=== PATIENT | male | born 1940 | race Caucasian/White ===

== ENCOUNTER 2023-05-20 11:02 | Inpatient (IN) ==
--- NOTE | 2023-05-20 11:28 | Emergency Department Note ---
History of Present Illness General Chief complaint: Illness Stated complaint: SOB, SATS BELOW 90, CONGESTION, LOW GRADE FEVER Time Seen by Provider: 05/20/23 11:20 Home Medications Medication Instructions Recorded Confirmed Type Atenolol 25 mg PO HS ##0 10/29/14 History ATORVASTATIN (LIPITOR) 20 mg PO HS ##0 11/21/14 History COENZYME Q10 (UBIDECARENONE) (CO 1 cap PO DAILY #0 caps 11/22/14 History Q-10) IBUPROFEN 4 tabs PO HS PRN Pain ##0 11/22/14 History Allergies Allergy/AdvReac Type Severity Reaction Status Date / Time No Known Allergies Allergy Unverified 11/21/14 12:50 Past Med/Surg History Social History Smoking Status: Former smoker Preferred Language: [place] Verdean Feels Safe at Home: Yes Discharge Plan Visit Data Chief Complaint: Illness Stated Complaint: SOB, SATS BELOW 90, CONGESTION, LOW GRADE FEVER ED Provider: Patito Hansen Forms Stand Alone Forms: [facility] Prescriptions Prescriptions: No Action Atenolol 25 MG tablet 25 mg PO HS Qty: 0 ATORVASTATIN (LIPITOR) 20 MG tablet 20 mg PO HS Qty: 0 COENZYME Q10 (UBIDECARENONE) (CO Q-10) 75 MG capsule 1 cap PO DAILY Qty: 0 Patient Comments: UNSURE OF DOSAGE IBUPROFEN 200 MG capsule 4 tabs PO HS PRN (Reason: Pain) Qty: 0 Referrals Referrals: Terrance Landers DO [Primary Care Provider] -
--- NOTE | 2023-05-20 11:29 | Emergency Department Note ---
Impression & Plan Shortness of breath, Pulmonary edema, Non-ST elevation HI (NSTEMI), Acute respiratory failure with hypoxia and hypercapnia ED Provider Note HISTORY OF PRESENT ILLNESS: Patient is an 82-year-old male presenting with shortness of breath and cough. Patient reportedly has been having progressively worsening shortness of breath over the last 3 days. He has been having a cough productive of a yellow-green sputum. Reports low-grade fevers at home. He does not wear any supplemental oxygen at baseline. He is not on any anticoagulation or antiplatelet therapy. Denies any DVT or PE history. Denies any lower extremity edema. Denies any chest pain. Denies any recent sick contact exposure. He did recently just travel to [place]. ROS: as above PHYSICAL EXAM: Constitutional: Patient appears in no acute distress. HENT: Head: Normocephalic and atraumatic. Eyes: EOMI, PERRL Mouth/Throat: Mucous membranes moist. Neck: Trachea midline. Neck supple. Cardiovascular: RRR, No murmurs, rubs or gallops. Intact distal pulses. Pulmonary/Chest: No respiratory distress. Breath sounds clear and equal bilaterally. No wheezes or rales. Abdominal: Abdomen soft, no tenderness, rebound or guarding. Musculoskeletal: No tenderness or deformity noted. Trace edema of the bilateral lower extremities. Skin: Warm and dry. No rash, erythema, pallor or cyanosis Psychiatric: Appropriate mood and affect for situation. Neurological: Alert and keenly responsive. CN II-XII grossly intact, moving all extremities equally and fully. MDM: - Vitals signs showed hypertension and hypoxia. Patient was placed on supplemental oxygen with improvement in saturations. - History obtained via patient. Patient presents with shortness of breath. Patient has had progressively worsening shortness of breath over the last 3 days. He had a cough productive of yellow-green sputum. Reports low-grade fevers at home. He does not wear any supplemental oxygen at baseline. He is not on any anticoagulation. Denies any DVT or PE history. Denies any chest pain. - Chronic conditions affecting care: HTN; HLD - Differential diagnoses include, but are not limited to: Congestive heart failure; acute coronary syndrome; COPD/asthma exacerbation; pulmonary edema; pulmonary embolism; pneumonia; pneumothorax; viral syndrome - Order placed for continuous cardiac monitoring. At this time, monitor showed rate of 55 bpm with normal sinus rhythm, per my interpretation. - External medical records reviewed. - EKG reviewed by myself showed normal sinus rhythm. Occasional PVCs noted. Rate 62 bpm. QTc 462. No acute ischemic changes. - Laboratory workup interpreted by myself showed normal WBC; stable electrolytes; elevated troponin (24.8); elevated BNP (878); normal procalcitonin - CXR showed pulmonary edema, per my interpretation. Noted to have bilateral pleural effusions. - VBG showed respiratory acidosis (pH 7.31; pCO2 62). Patient started on BiPAP. - Viral upper respiratory panel negative. - NSTEMI likely secondary to pulmonary edema. Patient denies chest pain and no ischemic changes on EKG. - Given hypoxia, CT PE obtained. Showed bilateral pleural effusions. - Patient given 80 mg IV lasix. - Discussion was had with rn social services about patient's case and need for admission - Hospitalist consulted for admission - Patient admitted to [facility] service for further evaluation and management. I provided 48 minutes of critical care time to this patient's care outside of billable procedures. ASSESSMENT AND PLAN: Diagnosis: Shortness of breath; pulmonary edema; NSTEMI; acute hypoxic respiratory failure; acute hypercarbic respiratory failure Plan: Admit Past Med/Surg History Social History Smoking Status: Former smoker Preferred Language: Tajik Feels Safe at Home: Yes Allergies Allergies Allergy/AdvReac Type Severity Reaction Status Date / Time No Known Allergies Allergy Unverified 11/21/14 12:50 Home Meds Home Medications Medication Instructions Recorded Confirmed Atenolol 25 mg PO HS ##0 10/29/14 ATORVASTATIN (LIPITOR) 20 mg PO HS ##0 11/21/14 COENZYME Q10 (UBIDECARENONE) (CO 1 cap PO DAILY #0 caps 11/22/14 Q-10) IBUPROFEN 4 tabs PO HS PRN Pain ##0 11/22/14 Results & Data (ED) Vital Signs Vital Signs - 24 hr 05/20/23 11:18 05/20/23 11:26 05/20/23 11:32 Temperature 36.9 C Temperature Source Temporal Artery Scan Pulse Rate 59 L 57 L Pulse Rate [Finger] Pulse Rate from SpO2 Sensor Pulse Rhythm Regular Pulse Rhythm [Finger] Pulse Strength [Finger] Respiratory Rate 18 18 Respiratory Effort / Characteristics Non-Labored Spontaneous Respiratory Depth Normal Respiratory Pattern Regular Blood Pressure 175/84 H Blood Pressure [Right Arm] Blood Pressure Mean 114 Blood Pressure Mean [Right Arm] Blood Pressure Position [Right Arm] Pulse Oximetry 83 L 78 L 98 Oxygen Delivery Method Room Air Room Air Nasal Cannula Oxygen Flow Rate 0 6 Sepsis Recent Fever Within 48 Hours No Sepsis New/Unexplained Change in Mental Status No Sepsis Action Taken by Nursing No Action Required Oxygen Flow Rate - Titration 6 Pulse Oximetry Post Tiitration 94 05/20/23 11:31 05/20/23 11:41 05/20/23 12:31 Temperature Temperature Source Pulse Rate 60 Pulse Rate [Finger] 58 L Pulse Rate from SpO2 Sensor Pulse Rhythm Pulse Rhythm [Finger] Regular Pulse Strength [Finger] Normal Respiratory Rate 11 L Respiratory Effort / Characteristics Non-Labored Spontaneous Respiratory Depth Normal Respiratory Pattern Regular Blood Pressure Blood Pressure [Right Arm] 139/82 Blood Pressure Mean Blood Pressure Mean [Right Arm] 101 Blood Pressure Position [Right Arm] Lying Pulse Oximetry 98 100 Oxygen Delivery Method Nasal Cannula BiPAP Oxygen Flow Rate 6 Sepsis Recent Fever Within 48 Hours Sepsis New/Unexplained Change in Mental Status Sepsis Action Taken by Nursing Oxygen Flow Rate - Titration 4 Pulse Oximetry Post Tiitration 98 05/20/23 11:29 05/20/23 11:30 05/20/23 11:40 Temperature Temperature Source Pulse Rate 61 56 L 59 L Pulse Rate [Finger] Pulse Rate from SpO2 Sensor 57 L 56 L 57 L Pulse Rhythm Pulse Rhythm [Finger] Pulse Strength [Finger] Respiratory Rate 20 19 17 Respiratory Effort / Characteristics Respiratory Depth Respiratory Pattern Blood Pressure Blood Pressure [Right Arm] Blood Pressure Mean Blood Pressure Mean [Right Arm] Blood Pressure Position [Right Arm] Pulse Oximetry 97 98 97 Oxygen Delivery Method Oxygen Flow Rate Sepsis Recent Fever Within 48 Hours Sepsis New/Unexplained Change in Mental Status Sepsis Action Taken by Nursing Oxygen Flow Rate - Titration Pulse Oximetry Post Tiitration 05/20/23 11:50 05/20/23 12:00 05/20/23 12:00 Temperature Temperature Source Pulse Rate 57 L 60 Pulse Rate [Finger] Pulse Rate from SpO2 Sensor 58 L 59 L Pulse Rhythm Pulse Rhythm [Finger] Pulse Strength [Finger] Respiratory Rate 26 H 27 H Respiratory Effort / Characteristics Respiratory Depth Respiratory Pattern Blood Pressure 205/84 H Blood Pressure [Right Arm] Blood Pressure Mean 148 Blood Pressure Mean [Right Arm] Blood Pressure Position [Right Arm] Pulse Oximetry 94 96 Oxygen Delivery Method Oxygen Flow Rate Sepsis Recent Fever Within 48 Hours Sepsis New/Unexplained Change in Mental Status Sepsis Action Taken by Nursing Oxygen Flow Rate - Titration Pulse Oximetry Post Tiitration 05/20/23 12:10 05/20/23 12:20 05/20/23 12:30 Temperature Temperature Source Pulse Rate 62 60 59 L Pulse Rate [Finger] Pulse Rate from SpO2 Sensor 57 L 59 L 59 L Pulse Rhythm Pulse Rhythm [Finger] Pulse Strength [Finger] Respiratory Rate 19 20 10 L Respiratory Effort / Characteristics Respiratory Depth Respiratory Pattern Blood Pressure Blood Pressure [Right Arm] Blood Pressure Mean Blood Pressure Mean [Right Arm] Blood Pressure Position [Right Arm] Pulse Oximetry 96 100 99 Oxygen Delivery Method Oxygen Flow Rate Sepsis Recent Fever Within 48 Hours Sepsis New/Unexplained Change in Mental Status Sepsis Action Taken by Nursing Oxygen Flow Rate - Titration Pulse Oximetry Post Tiitration 05/20/23 12:31 05/20/23 12:31 05/20/23 12:40 Temperature Temperature Source Pulse Rate 55 L 56 L Pulse Rate [Finger] Pulse Rate from SpO2 Sensor 53 L 50 L Pulse Rhythm Pulse Rhythm [Finger] Pulse Strength [Finger] Respiratory Rate 9 L 11 L Respiratory Effort / Characteristics Respiratory Depth Respiratory Pattern Blood Pressure 139/82 Blood Pressure [Right Arm] Blood Pressure Mean 96 Blood Pressure Mean [Right Arm] Blood Pressure Position [Right Arm] Pulse Oximetry 99 98 Oxygen Delivery Method Oxygen Flow Rate Sepsis Recent Fever Within 48 Hours Sepsis New/Unexplained Change in Mental Status Sepsis Action Taken by Nursing Oxygen Flow Rate - Titration Pulse Oximetry Post Tiitration 05/20/23 12:50 05/20/23 13:00 05/20/23 13:00 Temperature Temperature Source Pulse Rate 53 L 52 L Pulse Rate [Finger] Pulse Rate from SpO2 Sensor 51 L 51 L Pulse Rhythm Pulse Rhythm [Finger] Pulse Strength [Finger] Respiratory Rate 10 L 10 L Respiratory Effort / Characteristics Respiratory Depth Respiratory Pattern Blood Pressure 155/75 H Blood Pressure [Right Arm] Blood Pressure Mean 81 Blood Pressure Mean [Right Arm] Blood Pressure Position [Right Arm] Pulse Oximetry 97 98 Oxygen Delivery Method Oxygen Flow Rate Sepsis Recent Fever Within 48 Hours Sepsis New/Unexplained Change in Mental Status Sepsis Action Taken by Nursing Oxygen Flow Rate - Titration Pulse Oximetry Post Tiitration 05/20/23 13:10 05/20/23 13:20 05/20/23 13:30 Temperature Temperature Source Pulse Rate 51 L 48 L 54 L Pulse Rate [Finger] Pulse Rate from SpO2 Sensor 50 L Pulse Rhythm Pulse Rhythm [Finger] Pulse Strength [Finger] Respiratory Rate 12 10 L 18 Respiratory Effort / Characteristics Respiratory Depth Respiratory Pattern Blood Pressure Blood Pressure [Right Arm] Blood Pressure Mean Blood Pressure Mean [Right Arm] Blood Pressure Position [Right Arm] Pulse Oximetry 97 97 96 Oxygen Delivery Method Oxygen Flow Rate Sepsis Recent Fever Within 48 Hours Sepsis New/Unexplained Change in Mental Status Sepsis Action Taken by Nursing Oxygen Flow Rate - Titration Pulse Oximetry Post Tiitration 05/20/23 13:31 05/20/23 13:31 05/20/23 13:40 Temperature Temperature Source Pulse Rate 51 L 52 L Pulse Rate [Finger] Pulse Rate from SpO2 Sensor Pulse Rhythm Pulse Rhythm [Finger] Pulse Strength [Finger] Respiratory Rate 10 L 11 L Respiratory Effort / Characteristics Respiratory Depth Respiratory Pattern Blood Pressure 170/83 H Blood Pressure [Right Arm] Blood Pressure Mean 105 Blood Pressure Mean [Right Arm] Blood Pressure Position [Right Arm] Pulse Oximetry 97 97 Oxygen Delivery Method Oxygen Flow Rate Sepsis Recent Fever Within 48 Hours Sepsis New/Unexplained Change in Mental Status Sepsis Action Taken by Nursing Oxygen Flow Rate - Titration Pulse Oximetry Post Tiitration Laboratory Data 05/20/23 11:35 05/20/23 11:35 Lab Results 05/20/23 05/20/23 05/20/23 Range/Units 11:35 11:35 11:35 WBC 9.99 (4.8-10.8) K/ul RBC 5.18 (4.70-6.10) M/uL Hgb 14.2 (14.0-18.0) g/dl Hct 43.9 (42.0-52.0) % MCV 84.7 (80.0-100.0) fL MCH 27.4 (25.0-34.0) pg MCHC 32.3 (32.0-36.0) g/dL RDW Std Deviation 52.2 H (36.4-46.3) fL RDW Coeff of Ebony 17.2 H (11.5-14.5) % Plt Count 184 (130-400) K/uL MPV 10.6 (9.4-12.4) fL Immature Gran % (Auto) 0.2 % Neut % (Auto) 67.3 % Lymph % (Auto) 24.9 % [place] % (Auto) 6.6 % Eos % (Auto) 0.7 % Baso % (Auto) 0.3 % Neut # (Auto) 6.72 H (1.40-6.50) K/uL Lymph # (Auto) 2.49 (1.20-3.40) K/uL [place] # (Auto) 0.66 H (0.11-0.59) K/uL Eos # (Auto) 0.07 (0.00-0.50) K/uL Baso # (Auto) 0.03 (0.00-0.20) K/uL Immature Gran # (Auto) 0.02 (0.01-0.20) K/uL VBG pH (7.36-7.41) VBG pCO2 (38-50) mmHg VBG pO2 mmHg VBG HCO3 mmol/L VBG O2 Saturation % VBG Base Excess mEq/L Sodium 137 (136-145) mmol/L Potassium 3.9 (3.5-5.1) mmol/L Chloride 100 (98-107) mmol/L Carbon Dioxide 30 (21-32) mmol/L Anion Gap 7 (3-11) BUN 14 (6-23) mg/dl Creatinine 0.88 (0.6-1.4) mg/dl Est Cr Clr Drug Dosing 80.5 ml/min Est GFR ( Amer) 94.0 ml/min Est GFR (Non-Af Amer) 81.1 ml/min BUN/Creatinine Ratio 15.9 (10-20) Glucose 102 H (70-99(Fasting)) mg/dl Calcium 9.2 (8.6-10.3) mg/dl Magnesium 2.2 (1.7-2.4) mg/dl Total Bilirubin 0.9 (0.2-1.0) mg/dl AST 20 (13-39) U/L ALT 11 (7-52) U/L Alkaline Phosphatase 148 H (34-104) U/L Troponin I High Sens 24.8 H (0-20) pg/ml B-Natriuretic Peptide 878 H (0-100) pg/ml Total Protein 7.8 (6.0-8.3) gm/dl Albumin 4.6 (3.4-5.0) gm/dl Globulin 3.2 (2.5-4.0) gm/dl Albumin/Globulin Ratio 1.4 (0.9-2) Procalcitonin (0-0.5) ng/ml Adenovirus (PCR) (NotDetected) B. pertussis DNA (PCR) (NotDetected) B.parapertussis DNA PCR (NotDetected) C. pneumoniae DNA (PCR) (NotDetected) Coronavirus OC43 (PCR) (NotDetected) Coronavirus HKU1 (PCR) (NotDetected) Coronavirus 229E (PCR) (NotDetected) SARS-CoV-2 (PCR) (NotDetected) Coronavirus NL63 (PCR) (NotDetected) Human Metapneumovir PCR (NotDetected) Influenza Type A (PCR) (NotDetected) Influenza Type B (PCR) (NotDetected) M. pneumoniae (PCR) (NotDetected) Parainfluenza 1 (PCR) (NotDetected) Parainfluenza 2 (PCR) (NotDetected) Parainfluenza 3 (PCR) (NotDetected) Parainfluenza 4 (PCR) (NotDetected) RSV (PCR) (NotDetected) Entero/Rhino (PCR) (NotDetected) 05/20/23 05/20/23 05/20/23 Range/Units 11:35 11:35 11:35 WBC (4.8-10.8) K/ul RBC (4.70-6.10) M/uL Hgb (14.0-18.0) g/dl Hct (42.0-52.0) % MCV (80.0-100.0) fL MCH (25.0-34.0) pg MCHC (32.0-36.0) g/dL RDW Std Deviation (36.4-46.3) fL RDW Coeff of Ebony (11.5-14.5) % Plt Count (130-400) K/uL MPV (9.4-12.4) fL Immature Gran % (Auto) % Neut % (Auto) % Lymph % (Auto) % [place] % (Auto) % Eos % (Auto) % Baso % (Auto) % Neut # (Auto) (1.40-6.50) K/uL Lymph # (Auto) (1.20-3.40) K/uL [place] # (Auto) (0.11-0.59) K/uL Eos # (Auto) (0.00-0.50) K/uL Baso # (Auto) (0.00-0.20) K/uL Immature Gran # (Auto) (0.01-0.20) K/uL VBG pH 7.31 L (7.36-7.41) VBG pCO2 62 H (38-50) mmHg VBG pO2 32 mmHg VBG HCO3 31 mmol/L VBG O2 Saturation < 60.0 % VBG Base Excess 3.2 mEq/L Sodium (136-145) mmol/L Potassium (3.5-5.1) mmol/L Chloride (98-107) mmol/L Carbon Dioxide (21-32) mmol/L Anion Gap (3-11) BUN (6-23) mg/dl Creatinine (0.6-1.4) mg/dl Est Cr Clr Drug Dosing ml/min Est GFR ( Amer) ml/min Est GFR (Non-Af Amer) ml/min BUN/Creatinine Ratio (10-20) Glucose (70-99(Fasting)) mg/dl Calcium (8.6-10.3) mg/dl Magnesium (1.7-2.4) mg/dl Total Bilirubin (0.2-1.0) mg/dl AST (13-39) U/L ALT (7-52) U/L Alkaline Phosphatase (34-104) U/L Troponin I High Sens (0-20) pg/ml B-Natriuretic Peptide (0-100) pg/ml Total Protein (6.0-8.3) gm/dl Albumin (3.4-5.0) gm/dl Globulin (2.5-4.0) gm/dl Albumin/Globulin Ratio (0.9-2) Procalcitonin < 0.05 (0-0.5) ng/ml Adenovirus (PCR) Not Detected (NotDetected) B. pertussis DNA (PCR) Not Detected (NotDetected) B.parapertussis DNA PCR Not Detected (NotDetected) C. pneumoniae DNA (PCR) Not Detected (NotDetected) Coronavirus OC43 (PCR) Not Detected (NotDetected) Coronavirus HKU1 (PCR) Not Detected (NotDetected) Coronavirus 229E (PCR) Not Detected (NotDetected) SARS-CoV-2 (PCR) Not Detected (NotDetected) Coronavirus NL63 (PCR) Not Detected (NotDetected) Human Metapneumovir PCR Not Detected (NotDetected) Influenza Type A (PCR) Not Detected (NotDetected) Influenza Type B (PCR) Not Detected (NotDetected) M. pneumoniae (PCR) Not Detected (NotDetected) Parainfluenza 1 (PCR) Not Detected (NotDetected) Parainfluenza 2 (PCR) Not Detected (NotDetected) Parainfluenza 3 (PCR) Not Detected (NotDetected) Parainfluenza 4 (PCR) Not Detected (NotDetected) RSV (PCR) Not Detected (NotDetected) Entero/Rhino (PCR) Not Detected (NotDetected) Administered Medications Discontinued Medications Ioversol (Optiray 350) 118 ml IV ONCE ONE Stop: 05/20/23 13:55 Last Admin: 05/20/23 13:55 Dose: 118 ml Documented By: [facility] Imaging Data Radiologist's Impression: Chest X-Ray 05/20/23 11:21 XR chest 1V portable HISTORY: 82 years-old Male Dyspnea acute shortness of breath COMPARISON: None TECHNIQUE: AP view the chest FINDINGS: Cardiac silhouette is enlarged. Pulmonary vascular congestion with interstitial coarsening. Small pleural effusions with bibasilar opacities. A line with lucency projects over the lateral right lung base compatible with a skin fold. Degenerative changes of the shoulders and spine. IMPRESSION: 1. Cardiomegaly with pulmonary edema. 2. Layering pleural effusions with bibasilar opacities suggestive of atelectasis. ACT 112: Negative or not required by law. The above report was generated using voice recognition software. It may contain grammatical, syntax or spelling errors. Electronically signed by: Roderick Wallis M.D. 05/20/2023 2:19 PM Chest CTA 05/20/23 11:22 CT angio chest PE protocol CT DOSE: 943.30 mGy.cm HISTORY: 82 years-old Male with PE. Acute shortness breath with hypoxia and fever TECHNIQUE: Multiple CTA images of the chest were obtained after the intravenous administration of 118 ml Optiray. Coronal and sagittal MIPS were obtained from the axial data set and were submitted for review. All measurements were obtained according to NASCET criteria. A dose lowering technique was utilized adhering to the principles of ALARA. COMPARISON: Chest radiograph of same day FINDINGS: CTA: Moderate cardiomegaly. No pericardial effusion. Moderate coronary artery calcifications. Atherosclerosis of the thoracic aorta without aneurysm or dissection. Descending thoracic aortic tortuosity. No pulmonary emboli are identified. Suboptimal evaluation of the segmental and subsegmental pulmonary artery branches secondary to respiratory motion artifact. CT CHEST: No pneumothorax identified. Intralobular septal thickening with intermixed groundglass densities. Consolidation with volume loss of the lower lobes, right greater than left. Bilateral pleural calcifications with moderate to large pleural effusions. Anasarca. Small volume of upper abdominal ascites. Gaseous distention of the large bowel. Atrophy of the bilateral rotator cuff musculature. With bodies within the left greater than right glenohumeral joints. IMPRESSION: 1. Limited study secondary to respiratory motion artifact. No central pulmonary emboli identified. 2. Cardiomegaly with volume overload manifested by pulmonary edema, moderate to large pleural effusions, anasarca and small volume of upper abdominal ascites. 3. Consolidation with volume loss of the lower lobes suggestive of compressive atelectasis. 4. Bilateral pleural calcifications. ACT 112: Negative or not required by law. The above report was generated using voice recognition software. It may contain grammatical, syntax or spelling errors. Electronically signed by: Roderick Wallis M.D. 05/20/2023 2:19 PM Discharge Plan Visit Data Chief Complaint: Illness Stated Complaint: SOB, SATS BELOW 90, CONGESTION, LOW GRADE FEVER ED Provider: Patito Hansen Discharge Problem: Shortness of breath, Pulmonary edema, Non-ST elevation HI (NSTEMI), Acute respiratory failure with hypoxia and hypercapnia Forms Stand Alone Forms: [facility] Prescriptions Prescriptions: No Action Atenolol 25 MG tablet 25 mg PO HS Qty: 0 ATORVASTATIN (LIPITOR) 20 MG tablet 20 mg PO HS Qty: 0 COENZYME Q10 (UBIDECARENONE) (CO Q-10) 75 MG capsule 1 cap PO DAILY Qty: 0 Patient Comments: UNSURE OF DOSAGE IBUPROFEN 200 MG capsule 4 tabs PO HS PRN (Reason: Pain) Qty: 0 Referrals Referrals: Terrance Landers, DO [Outside Practitioners] -
[2023-05-20 11:49] LABS: Base Excess VBG 3.2 mEq/L; HCO3 VBG 31 mmol/L; Oxygen Saturation VBG < 60.0 %; PCO2 VBG 62 mmHg (38-50); PO2 VBG 32 mmHg; pH VBG 7.31 (7.36-7.41)
[2023-05-20 11:56] LABS: Basophils # (auto) 0.03 K/uL (0.00-0.20); Basophils % (auto) 0.3 %; Eosinophils # (auto) 0.07 K/uL (0.00-0.50); Eosinophils % (auto) 0.7 %; Hematocrit (blood only) 43.9 % (42.0-52.0); Hemoglobin 14.2 g/dl (14.0-18.0); Immature Granulocytes # (auto) 0.02 K/uL (0.01-0.20); Immature Granulocytes % (auto) 0.2 %; Lymphocytes # (auto) 2.49 K/uL (1.20-3.40); Lymphocytes % (auto) 24.9 %; Mean Corpuscular Hemoglobin 27.4 pg (25.0-34.0); Mean Corpuscular Hgb Conc 32.3 g/dL (32.0-36.0); Mean Corpuscular Volume 84.7 fL (80.0-100.0); Mean Platelet Volume 10.6 fL (9.4-12.4); Monocytes # (auto) 0.66 K/uL (0.11-0.59); Monocytes % (auto) 6.6 %; Neutrophils # (auto) 6.72 K/uL (1.40-6.50); Neutrophils % (auto) 67.3 %; Platelet Count 184 K/uL (130-400); RDW Coefficient of Variation 17.2 % (11.5-14.5); RDW Standard Deviation 52.2 fL (36.4-46.3); Red Blood Count 5.18 M/uL (4.70-6.10); White Blood Count 9.99 K/ul (4.8-10.8)
[2023-05-20 12:13] LABS: Albumin Globulin Ratio 1.4 (0.9-2); Albumin Level 4.6 gm/dl (3.4-5.0); BUN Creatinine Ratio 15.9 (10-20); Bilirubin,Total 0.9 mg/dl (0.2-1.0); Calcium 9.2 mg/dl (8.6-10.3); Creatinine Clr Calc Pharmacy 80.5 ml/min; Est GFR (Non-African American) 81.1 ml/min; Globulin 3.2 gm/dl (2.5-4.0); Magnesium 2.2 mg/dl (1.7-2.4); Potassium 3.9 mmol/L (3.5-5.1); Total Protein 7.8 gm/dl (6.0-8.3)
[2023-05-20 12:19] LABS: Troponin I High Sensitivity 24.8 pg/ml (0-20)
[2023-05-20 12:46] LABS: Adenovirus PCR Not Detected (NotDetected); Bordetella parapertussis PCR Not Detected (NotDetected); Bordetella pertussis PCR Not Detected (NotDetected); Chlamydia pneumoniae PCR Not Detected (NotDetected); Coronavirus 229E PCR Not Detected (NotDetected); Coronavirus CoV-2 (COVID19)PCR Not Detected (NotDetected); Coronavirus HKU1 PCR Not Detected (NotDetected); Coronavirus NL63 PCR Not Detected (NotDetected); Coronavirus OC43PCR Not Detected (NotDetected); Human Metapneumovirus PCR Not Detected (NotDetected); Influenza A PCR Not Detected (NotDetected); Influenza B PCR Not Detected (NotDetected); Mycoplasma pneumoniae PCR Not Detected (NotDetected); Parainfluenza Virus 1 PCR Not Detected (NotDetected); Parainfluenza Virus 2 PCR Not Detected (NotDetected); Parainfluenza Virus 3 PCR Not Detected (NotDetected); Parainfluenza Virus 4 PCR Not Detected (NotDetected); Respiratory Syncytial VirusPCR Not Detected (NotDetected); Rhinovirus/Enterovirus PCR Not Detected (NotDetected)
[2023-05-20] MEDS ORDERED: OPTIRAY 350 IV ONE (13:54)
--- NOTE | 2023-05-20 14:20 | CT Scan Report ---
CT angio chest PE protocol CT DOSE: 943.30 mGy.cm HISTORY: 82 years-old Male with PE. Acute shortness breath with hypoxia and fever TECHNIQUE: Multiple CTA images of the chest were obtained after the intravenous administration of 118 ml Optiray. Coronal and sagittal MIPS were obtained from the axial data set and were submitted for review. All measurements were obtained according to NASCET criteria. A dose lowering technique was u tilized adhering to the principles of ALARA. COMPARISON: Chest radiograph of same day FINDINGS: CTA: Moderate cardiomegaly. No pericardial effusion. Moderate coronary artery calcifications. Atherosclero sis of the thoracic aorta without aneurysm or dissection. Descending thoracic aortic tortuosity. No p ulmonary emboli are identified. Suboptimal evaluation of the segmental and subsegmental pulmonary art roseanna branches secondary to respiratory motion artifact. CT CHEST: No pneumothorax identified. Intralobular septal thickening with intermixed groundglass densities. Con solidation with volume loss of the lower lobes, right greater than left. Bilateral pleural calcificat ions with moderate to large pleural effusions. Anasarca. Small volume of upper abdominal ascites. Gas eous distention of the large bowel. Atrophy of the bilateral rotator cuff musculature. With bodies wi thin the left greater than right glenohumeral joints. IMPRESSION: 1. Limited study secondary to respiratory motion artifact. No central pulmonary emboli identified. 2. Cardiomegaly with volume overload manifested by pulmonary edema, moderate to large pleural effusio ns, anasarca and small volume of upper abdominal ascites. 3. Consolidation with volume loss of the lower lobes suggestive of compressive atelectasis. 4. Bilateral pleural calcifications. ACT 112: Negative or not required by law. The above report was generated using voice recognition software. It may contain grammatical, syntax o r spelling errors. Electronically signed by: Roderick Wallis M.D. 05/20/2023 2:19 PM
--- NOTE | 2023-05-20 14:20 | XRay Report ---
XR chest 1V portable HISTORY: 82 years-old Male Dyspnea acute shortness of breath COMPARISON: None TECHNIQUE: AP view the chest FINDINGS: Cardiac silhouette is enlarged. Pulmonary vascular congestion with interstitial coarsening. Small ple ural effusions with bibasilar opacities. A line with lucency projects over the lateral right lung bas e compatible with a skin fold. Degenerative changes of the shoulders and spine. IMPRESSION: 1. Cardiomegaly with pulmonary edema. 2. Layering pleural effusions with bibasilar opacities suggestive of atelectasis. ACT 112: Negative or not required by law. The above report was generated using voice recognition software. It may contain grammatical, syntax o r spelling errors. Electronically signed by: Roderick Wallis M.D. 05/20/2023 2:19 PM
[2023-05-20] MEDS ORDERED: FUROSEMIDE 40 MG/4 ML VIAL IV ONE (14:23)
--- NOTE | 2023-05-20 14:54 | History & Physical Report ---
Date of Service May 20, 2023 Assessment & Plan (1) Acute respiratory failure with hypoxia and hypercapnia: (2) Pulmonary edema: (3) Shortness of breath: (4) HTN (hypertension): (5) HLD (hyperlipidemia): (6) CML (chronic myelocytic leukemia): Plan: This is an 82-year-old male with PMHx of CML on Bosulif, HTN, HLD, BPH, who has had swelling in his legs starting at least at the beginning of March. He has been followed by cardiology as an outpatient, and had a recent echocardiogram completed on 04/07/2023 for such. Presented with increased worsening shortness of breath and edema in legs. Acute respiratory failure with hypoxia and hypercarbia - requiring bipap on admission Hypertension HLD -Admit to PCU Last echocardiogram completed on : Reviewed study personally from outpatient EPIC : findings below ----LVEF of 60 to 64%, diastolic moderately abnormal grade 2 dysfunction, left atrium moderately enlarged, moderate aortic valve sclerosis, mild mitral regurg, moderate tricuspid regurg, moderate pulmonary hypertension - No previous history of CHF, will repeat complete echo to evaluate - Diuresis with Lasix 80 mg IV started in the ER, monitor electrolyte with aggressive diuresis, will start Lasix 40 mg IV BID, he is not on any diuretics prior to this admission per review. - Strict I/Os, place rodriguez due to confusion - Fluid restriction, elevation of legs as tolerated - Consult cardiology - Pt required placement on BiPAP due to pH of 7.31, CO2 62 on VBG, will recheck ABG now s/p wearing bipap since it has been 4 hours, trend Q4H pending results -BNP 878, troponin 24.8, will trend troponins -EKG reviewed personally showing NSR with PVCs, QTc of 462 -May continue atorvastatin for chronic hyperlipidemia -Continue atenolol, lisinopril and hold amlodipine for chronic hypertension -- BP is elevated on admission, likely will improve with diuresis - Pt is taking full dose amlodipine 5 mg daily at home although was supposed to have reduce this to 2.5 mg daily. CML, Ph + -Diagnosed January 2018 Outpatient regimen of Bosulif 400 md once daily -Primary oncologist Christiano Navarrete MD. -Trending of BCRABL 1, P2 Y0 has been negative and has not showed any progression of disease -On personal review of chemotherapy possible side effects, cardiovascular toxicity and fluid retention are listed specifically: may manifest as pericardial effusion, pleural effusion, pulmonary edema, peripheral edema -consider oncology discussion regarding dose of medication/reduction if necessary - WBC of 9.99, H&H 14.2/43.9, plt 184, ANC 6.72 DVT PPx - scds, lovenox subq 40 daily CODE: Full code FEN/: HH, FLuid restriction 1500ml/day, strict I/Os IV: 2 peripheral IVs Dispo: From home, likely to remain in the hospital x 2 days History of Present Illness Primary Care Provider: Nimco Machado MD This is an 82-year-old male with PMHx of CML on Bosulif, HTN, HLD, BPH, who has had swelling in his legs starting at least at the beginning of March. He has been followed by cardiology as an outpatient, and had a recent echocardiogram completed on 04/07/2023 for such. Pt 's nurse, Louann, is present with him at bedside. She cares for the patients who has dementia 4d per week in their home. Pt started developing noticeable worsening breathing on Wednesday with ambulation when she was there with him, at that time asked for CXR from pcp. This was not done as an outpatient to her knowledge. she did not see him on Wednesday. Today when she saw him he was 78 % on RA and does not wear supplemental O2. He was significantly short of breath at rest, with increased respiratory rate. She notices swelling in his legs worsening today compared to previously, but that lower extremity edema has been ongoing since beginning of the summer. His PCP reduced amlodipine to 2.5 mg in beginning of March, however the patient has not reduce this medication per her report. Today he is confused, unable to answer the name of the nurse who is present at bedside, opens his eyes when asked to, but otherwise does not follow commands. She states this is not at all his baseline. Patient did take his morning amlodipine and lisinopril this morning and is due to take atenolol this evening. He takes possible if in the evenings, and has been on this since at least September 2020 per medication review in [facility]. Pt was recently away on a 10 day fishing trip to [place], and returned about 10 days ago well. Nurse reports that he ambulates without assistance at home, does not wear supplemental O2, no recent falls, eats and drinks well, no complaints recently with bowel or bladder habits. Social history: Patient is a former smoker, Smoked many years ago and stopped when he was 52 years ago. no alcohol use. Allergies Allergy/AdvReac Type Severity Reaction Status Date / Time No Known Allergies Allergy Unverified 11/21/14 12:50 Home Medications Medication Instructions Recorded Confirmed Type atenolol 25 mg tablet 25 mg PO HS ##0 10/29/14 05/20/23 History atorvastatin 20 mg tablet (Lipitor) 20 mg PO HS ##0 11/21/14 05/20/23 History coenzyme Q10 75 mg capsule 75 mg PO DAILY #0 caps 11/22/14 05/20/23 History ibuprofen 200 mg tablet 200 mg PO Q6H PRN Pain ##0 11/22/14 05/20/23 History amlodipine 5 mg tablet 2.5 mg PO QAM 05/20/23 05/20/23 History bosutinib 400 mg tablet (Bosulif) 400 mg PO HS 05/20/23 05/20/23 History lisinopril 20 mg tablet 20 mg PO QAM 05/20/23 05/20/23 History Past Med/Surg History Medical History (Updated 05/20/23 @ 14:52 by Angelique Ramires PA-C) CML (chronic myelocytic leukemia) HLD (hyperlipidemia) HTN (hypertension) Surgical History (Updated 05/20/23 @ 14:52 by Angelique Ramires PA-C) History of carpal tunnel surgery Hx of colonoscopy Hx of repair of rotator cuff Family History (Updated 05/20/23 @ 15:54 by Angelique Ramires PA-C) Other Family history non-contributory Social History (Updated 05/20/23 @ 15:57 by Angelique Ramires PA-C) Smoking Status: Former smoker Hx Alcohol Use: No Hx Substance Use: No Preferred Language: [place] Communication Ability: Effective Beliefs That Will Affect Care: None Current Living Situation: Spouse Other Information That Helps Us Care for You: No Feels Safe at Home: Yes Safety Concerns: Feels Safe At This Time Review of Systems Review of Systems: Unobtainable due to cognitive status Physical Exam Physical Exam: General: awakens briefly to verbal stimuli, lethargic, confused, no apparent distress on bipap Head: Normocephalic, atraumatic ENT: PERRL, EOMI, pharynx not examined due to BiPAP, mucous membranes appear moist, Chest: + Crackles throughout in upper chanel, diminished breath sounds at bases bilaterally, on BiPAP Cardiac: Regular rate and rhythm with few PVCs, + TANNER, +JVD, normal peripheral pulses, good capillary refill Abdominal: NABS x 4 quadrants, soft, nondistended, nontender to palpation, no rebound or guarding Extremities: 2+ pitting peripheral edema up to hips bilaterally, no erythema, + left avalos region with healing abrasion, calfs nontender to palpation Psych: Normal mood and affect Neuro: Awakens to verbal stimuli, confused, cannot name nurse at bedside, knows he is in the hospital and states the year is 2022. Results & Data Results & Data Vital Signs (Past 12 Hours) Vital Signs Temp Pulse Pulse Resp BP BP Pulse Ox 05/20/23 13:40 52 L 11 L 97 05/20/23 13:31 170/83 H 05/20/23 13:31 51 L 10 L 97 05/20/23 13:30 54 L 18 96 05/20/23 13:20 48 L 10 L 97 05/20/23 13:10 51 L 12 97 05/20/23 13:00 52 L 10 L 98 05/20/23 13:00 155/75 H 05/20/23 12:50 53 L 10 L 97 05/20/23 12:40 56 L 11 L 98 05/20/23 12:31 139/82 05/20/23 12:31 55 L 9 L 99 05/20/23 12:30 59 L 10 L 99 05/20/23 12:20 60 20 100 05/20/23 12:10 62 19 96 05/20/23 12:00 60 27 H 96 05/20/23 12:00 205/84 H 05/20/23 11:50 57 L 26 H 94 05/20/23 11:40 59 L 17 97 05/20/23 11:30 56 L 19 98 05/20/23 11:29 61 20 97 05/20/23 12:31 58 L 11 L 139/82 100 05/20/23 11:41 98 05/20/23 11:31 60 05/20/23 11:32 57 L 18 98 05/20/23 11:26 78 L 05/20/23 11:18 36.9 C 59 L 18 175/84 H 83 L O2 Del Method O2 Flow Rate 05/20/23 13:40 05/20/23 13:31 05/20/23 13:31 05/20/23 13:30 05/20/23 13:20 05/20/23 13:10 05/20/23 13:00 05/20/23 13:00 05/20/23 12:50 05/20/23 12:40 05/20/23 12:31 05/20/23 12:31 05/20/23 12:30 05/20/23 12:20 05/20/23 12:10 05/20/23 12:00 05/20/23 12:00 05/20/23 11:50 05/20/23 11:40 05/20/23 11:30 05/20/23 11:29 05/20/23 12:31 BiPAP 05/20/23 11:41 Nasal Cannula 6 05/20/23 11:31 05/20/23 11:32 Nasal Cannula 6 05/20/23 11:26 Room Air 0 05/20/23 11:18 Room Air Laboratory Results 05/20/23 05/20/23 05/20/23 11:35 11:35 11:35 WBC RBC Hgb Hct MCV MCH MCHC RDW Std Deviation RDW Coeff of Ebony Plt Count MPV Immature Gran % (Auto) Neut % (Auto) Lymph % (Auto) [place] % (Auto) Eos % (Auto) Baso % (Auto) Neut # (Auto) Lymph # (Auto) [place] # (Auto) Eos # (Auto) Baso # (Auto) Immature Gran # (Auto) VBG pH 7.31 L VBG pCO2 62 H VBG pO2 32 VBG HCO3 31 VBG O2 Saturation < 60.0 VBG Base Excess 3.2 Sodium Potassium Chloride Carbon Dioxide Anion Gap BUN Creatinine Est Cr Clr Drug Dosing Est GFR ( Amer) Est GFR (Non-Af Amer) BUN/Creatinine Ratio Glucose Calcium Magnesium Total Bilirubin AST ALT Alkaline Phosphatase Troponin I High Sens B-Natriuretic Peptide Total Protein Albumin Globulin Albumin/Globulin Ratio Procalcitonin < 0.05 Adenovirus (PCR) Not Detected B. pertussis DNA (PCR) Not Detected B.parapertussis DNA PCR Not Detected C. pneumoniae DNA (PCR) Not Detected Coronavirus OC43 (PCR) Not Detected Coronavirus HKU1 (PCR) Not Detected Coronavirus 229E (PCR) Not Detected SARS-CoV-2 (PCR) Not Detected Coronavirus NL63 (PCR) Not Detected Human Metapneumovir PCR Not Detected Influenza Type A (PCR) Not Detected Influenza Type B (PCR) Not Detected M. pneumoniae (PCR) Not Detected Parainfluenza 1 (PCR) Not Detected Parainfluenza 2 (PCR) Not Detected Parainfluenza 3 (PCR) Not Detected Parainfluenza 4 (PCR) Not Detected RSV (PCR) Not Detected Entero/Rhino (PCR) Not Detected 05/20/23 05/20/23 05/20/23 11:35 11:35 11:35 WBC 9.99 RBC 5.18 Hgb 14.2 Hct 43.9 MCV 84.7 MCH 27.4 MCHC 32.3 RDW Std Deviation 52.2 H RDW Coeff of Ebony 17.2 H Plt Count 184 MPV 10.6 Immature Gran % (Auto) 0.2 Neut % (Auto) 67.3 Lymph % (Auto) 24.9 [place] % (Auto) 6.6 Eos % (Auto) 0.7 Baso % (Auto) 0.3 Neut # (Auto) 6.72 H Lymph # (Auto) 2.49 [place] # (Auto) 0.66 H Eos # (Auto) 0.07 Baso # (Auto) 0.03 Immature Gran # (Auto) 0.02 VBG pH VBG pCO2 VBG pO2 VBG HCO3 VBG O2 Saturation VBG Base Excess Sodium 137 Potassium 3.9 Chloride 100 Carbon Dioxide 30 Anion Gap 7 BUN 14 Creatinine 0.88 Est Cr Clr Drug Dosing 80.5 Est GFR ( Amer) 94.0 Est GFR (Non-Af Amer) 81.1 BUN/Creatinine Ratio 15.9 Glucose 102 H Calcium 9.2 Magnesium 2.2 Total Bilirubin 0.9 AST 20 ALT 11 Alkaline Phosphatase 148 H Troponin I High Sens 24.8 H B-Natriuretic Peptide 878 H Total Protein 7.8 Albumin 4.6 Globulin 3.2 Albumin/Globulin Ratio 1.4 Procalcitonin Adenovirus (PCR) B. pertussis DNA (PCR) B.parapertussis DNA PCR C. pneumoniae DNA (PCR) Coronavirus OC43 (PCR) Coronavirus HKU1 (PCR) Coronavirus 229E (PCR) SARS-CoV-2 (PCR) Coronavirus NL63 (PCR) Human Metapneumovir PCR Influenza Type A (PCR) Influenza Type B (PCR) M. pneumoniae (PCR) Parainfluenza 1 (PCR) Parainfluenza 2 (PCR) Parainfluenza 3 (PCR) Parainfluenza 4 (PCR) RSV (PCR) Entero/Rhino (PCR) Diagnostic Findings Chest X-Ray 05/20/23 11:21 XR chest 1V portable HISTORY: 82 years-old Male Dyspnea acute shortness of breath COMPARISON: None TECHNIQUE: AP view the chest FINDINGS: Cardiac silhouette is enlarged. Pulmonary vascular congestion with interstitial coarsening. Small pleural effusions with bibasilar opacities. A line with adam cency projects over the lateral right lung base compatible with a skin fold. Degenerative changes of the shoulders and spine. IMPRESSION: 1. Cardiomegaly with pulmonary edema. 2. Layering pleural effusions with bibasilar opacities suggestive of atelectasis. ACT 112: Negative or not required by law. The above report was generated using voice recognition software. It may contain grammatical, syntax or spelling errors. Electronically signed by: Roderick Wallis M.D. 05/20/2023 2:19 PM Chest CTA 05/20/23 11:22 CT angio chest PE protocol CT DOSE: 943.30 mGy.cm HISTORY: 82 years-old Male with PE. Acute shortness breath with hypoxia and fever TECHNIQUE: Multiple CTA images of the chest were obtained after the intravenous administration of 118 ml Optiray. Coronal and sagittal MIPS were obtained from the axial data set and were submitted for review. All measurements were obtained according to NASCET criteria. A dose lowering technique was utilized adhering to the principles of ALARA. COMPARISON: Chest radiograph of same day FINDINGS: CTA: Moderate cardiomegaly. No pericardial effusion. Moderate coronary artery calcifications. Atherosclerosis of the thoracic aorta without aneurysm or dissection. Descending thoracic aortic tortuosity. No pulmonary emboli are identified. Suboptimal evaluation of the segmental and subsegmental pulmonary artery branches secondary to respiratory motion artifact. CT CHEST: No pneumothorax identified. Intralobular septal thickening with intermixed groundglass densities. Consolidation with volume loss of the lower lobes, right greater than left. Bilateral pleural calcifications with moderate to large pleural effusions. Anasarca. Small volume of upper abdominal ascites. Gaseous distention of the large bowel. Atrophy of the bilateral rotator cuff musculature. With bodies within the left greater than right glenohumeral joints. IMPRESSION: 1. Limited study secondary to respiratory motion artifact. No central pulmonary emboli identified. 2. Cardiomegaly with volume overload manifested by pulmonary edema, moderate to large pleural effusions, anasarca and small volume of upper abdominal ascites. 3. Consolidation with volume loss of the lower lobes suggestive of compressive atelectasis. 4. Bilateral pleural calcifications. ACT 112: Negative or not required by law. The above report was generated using voice recognition software. It may contain grammatical, syntax or spelling errors. Electronically signed by: Roderick Wallis M.D. 05/20/2023 2:19 PM ECG Additional Comments: Reviewed showing normal sinus rhythm with few PVCs as per chart review Code Status & VTE Plan Code Status Full code-discussed with patient's nurse at bedside who has son and daughter, Lashawn, medical power of workers compensation attorney, discussed with on the phone. Supervising Physician Co-Signing Physician Notes Pt seen and examined by myself, Amy Hummel MD on the day of service. Care was coordinated with Angelique Ramires PA-C. Please refer to her note for additional information. In short, 82yoM with PMHx significant for HTN and CML on chronic chemotherapy medication bosutinib presenting with SOB and noted hypoxia in the 70s on arrival. Family caregiver who is a nurse is at bedside providing most of the Hx. Additional Hx obtained from EPIC chart. Was being worked up by pcp for abnormal heart rhythm and subsequent echo- referred to cardiology but missed appt yesterday. Per caregiver, pt was not aware of appt. Pt examined on bipap, unarousable. Irregular rhythm, extra beats noted. EKG with sinus rhythm and noted frequent PVCs, BNP elevated at 878, hs-trops increased at 24.8, VBG with acidosis noted. Biofire negative. Chest xray noted pulmonary vascular congestion with interstitial coarsening, chest CTA with noted volume overload (pulmonary edema, moderate to large pleural effusions, anasarca, upper abdominal ascites). Received IV lasix 80mg in the ED, continue with IV lasix 40mg daily. Repeat Echo pending, trend trops, cardiology consult. Hold home amlodipine and chemo medication bosutinib as potential causes of his edema. We will contact Dr. Navarrete for further recommendations. Continue Bipap and wean as tolerated. Otherwise as above.
[2023-05-20 16:01] LABS: Base Excess ABG 2.8 mEq/L (-9-1.8); HCO3 ABG 31 mmol/L (19-24); Oxygen Saturation ABG 98.1 % (90-95); PCO2 ABG 61 mmHg (35-46); PO2 ABG 95 mmHg (80-95); pH ABG 7.31 (7.35-7.45)
[2023-05-20 16:12] LABS: Allen Test Pos (Pos)
[2023-05-20 16:16] LABS: Appearance Urine Clear (Clear); Bilirubin Urine Negative (Negative); Blood Urine Negative (Negative); Color Urine Yellow; Glucose Urine UA Negative (Negative); Ketones Urine Trace (Negative); Leukocyte Esterase Urine Negative (Negative); Nitrite Urine Negative (Negative); Protein Urine 2+ (Negative); RBC Urine Automated 0-4 /hpf (0-4); Specific Gravity Urine 1.037 (1.000-1.030); Urobilinogen Urine Negative (Negative)
[2023-05-20 16:23] LABS: Uric Acid 4.1 mg/dl (2.6-7.2)
[2023-05-20] MEDS ORDERED: ONDANSETRON INJ 2 MG/ML 2 ML VIAL IV PRN (16:45)
[2023-05-20] MEDS ORDERED: ACETAMINOPHEN 325 MG TAB PO PRN (16:45)
[2023-05-20 17:06] LABS: Bacteria Urine Automated 1+ (Negative)
--- NOTE | 2023-05-20 17:07 | Electrocardiogram Report ---
Test Reason : Blood Pressure : / mmHG Vent. Rate : 062 BPM Atrial Rate : 062 BPM P-R Int : 156 ms QRS Dur : 118 ms QT Int : 456 ms P-R-T Axes : -18 -12 025 degrees QTc Int : 462 ms Sinus rhythm with frequent Premature ventricular complexes Non-specific intra-ventricular conduction delay Borderline ECG No previous ECGs available Confirmed by Paul Colón ([id number]) on 05/20/2023 5:06:39 PM Referred By: Confirmed By:Paul Colón
[2023-05-20] MEDS ORDERED: ATENOLOL 25 MG TABLET PO SCH (21:00)
[2023-05-20] MEDS: ATORVASTATIN 20 MG TAB PO SCH (21:09)
[2023-05-20 22:02] LABS: Base Excess ABG 4.6 mEq/L (-9-1.8); HCO3 ABG 34 mmol/L (19-24); Oxygen Saturation ABG 99.8 % (90-95); PCO2 ABG 74 mmHg (35-46); PO2 ABG 100 mmHg (80-95); pH ABG 7.27 (7.35-7.45)
[2023-05-20 22:34] LABS: Allen Test Pos (Pos)
[2023-05-21 00:36] LABS: Allen Test Pos (Pos)
[2023-05-21 00:37] LABS: Base Excess ABG 5.5 mEq/L (-9-1.8); HCO3 ABG 35 mmol/L (19-24); Oxygen Saturation ABG 96.2 % (90-95); PCO2 ABG 74 mmHg (35-46); PO2 ABG 79 mmHg (80-95); pH ABG 7.28 (7.35-7.45)
[2023-05-21] MEDS: FUROSEMIDE 40 MG/4 ML VIAL IV SCH ×3 (01:24→17:37)
[2023-05-21 02:43] LABS: Base Excess ABG 5.2 mEq/L (-9-1.8); HCO3 ABG 34 mmol/L (19-24); Oxygen Saturation ABG 97.4 % (90-95); PCO2 ABG 67 mmHg (35-46); PO2 ABG 80 mmHg (80-95); pH ABG 7.31 (7.35-7.45)
[2023-05-21 02:45] LABS: Allen Test Pos (Pos)
[2023-05-21 02:48] LABS: Basophils # (auto) 0.03 K/uL (0.00-0.20); Basophils % (auto) 0.3 %; Eosinophils # (auto) 0.06 K/uL (0.00-0.50); Eosinophils % (auto) 0.7 %; Hemoglobin 12.2 g/dl (14.0-18.0); Immature Granulocytes # (auto) 0.01 K/uL (0.01-0.20); Immature Granulocytes % (auto) 0.1 %; Lymphocytes # (auto) 2.42 K/uL (1.20-3.40); Lymphocytes % (auto) 28.1 %; Mean Corpuscular Hemoglobin 27.2 pg (25.0-34.0); Mean Corpuscular Hgb Conc 32.1 g/dL (32.0-36.0); Mean Corpuscular Volume 84.8 fL (80.0-100.0); Mean Platelet Volume 10.7 fL (9.4-12.4); Monocytes # (auto) 0.73 K/uL (0.11-0.59); Monocytes % (auto) 8.5 %; Neutrophils # (auto) 5.35 K/uL (1.40-6.50); Neutrophils % (auto) 62.3 %; Platelet Count 144 K/uL (130-400); RDW Standard Deviation 52.2 fL (36.4-46.3); Red Blood Count 4.48 M/uL (4.70-6.10)
[2023-05-21 03:06] LABS: Albumin Globulin Ratio 1.3 (0.9-2); Albumin Level 3.6 gm/dl (3.4-5.0); BUN Creatinine Ratio 15.5 (10-20); Bilirubin,Total 0.6 mg/dl (0.2-1.0); Calcium 8.1 mg/dl (8.6-10.3); Est GFR (African American) 85.1 ml/min; Est GFR (Non-African American) 73.4 ml/min; Globulin 2.7 gm/dl (2.5-4.0); Phosphorus 3.4 mg/dl (2.5-4.9); Potassium 3.7 mmol/L (3.5-5.1); Total Protein 6.3 gm/dl (6.0-8.3)
[2023-05-21] MEDS ORDERED: FUROSEMIDE 40 MG/4 ML VIAL IV SCH ×2 (07:00→09:00)
[2023-05-21] MEDS: lisinopril 20 MG TAB PO SCH (08:34)
[2023-05-21] MEDS: ENOXAPARIN INJ 40 MG/0.4 ML SYR SQ SCH (08:34)
--- NOTE | 2023-05-21 09:42 | Cardiology Consultation ---
Date of Consultation May 21, 2023 Assessment & Plan (1) Acute heart failure with preserved ejection fraction: (2) Pleural effusion, bilateral: (3) Sinus bradycardia: Plan 82-year-old patient admitted with acute respiratory failure secondary to heart failure with preserved ejection fraction. Fluid balance -3.2 L since admission. Recommend titration of IV furosemide to 40 mg twice daily. Follow daily weight, fluid balance, electrolytes, and GFR. Supplement electrolytes as indicated. Consider addition of low-dose spironolactone pending clinical course and review of a.m. labs. Supplement oxygen as needed. Reduce atenolol to 12.5 mg daily given resting bradycardia. Consider transition to metoprolol pending clinical course. Hold amlodipine. Mildly elevated high-sensitivity troponin secondary to acute heart failure and hypoxia. Consider further ischemic evaluation as an outpatient. Thank you for allow me to participate in the care of your patient. History of Present Illness Reason for Consultation: Acute respiratory failure, volume overload Requesting Physician: Ana Ramires PA-C Attending Physician: Vasyl Ron MD History of Present Illness 82-year-old male present to the emergency department with 5 days of progressive dyspnea on exertion, edema, and abdominal bloating. Patient generally cared for by his nurse, Jim who is not present currently. Patient has underlying dementia. Denies any chest discomfort, palpitations, orthopnea, or PND. Amlodipine recently reduced to 2.5 mg daily by primary care. Somewhat of a poor historian. Per chart review, patient nurse reported ambulating without assistance and not wearing oxygen at home. No recent falls or injuries. Allergies Allergy/AdvReac Type Severity Reaction Status Date / Time No Known Allergies Allergy Unverified 11/21/14 12:50 Home Medications Medication Instructions Recorded Confirmed Type atenolol 25 mg tablet 25 mg PO HS ##0 10/29/14 05/20/23 History atorvastatin 20 mg tablet (Lipitor) 20 mg PO HS ##0 11/21/14 05/20/23 History coenzyme Q10 75 mg capsule 75 mg PO DAILY #0 caps 11/22/14 05/20/23 History ibuprofen 200 mg tablet 200 mg PO Q6H PRN Pain ##0 11/22/14 05/20/23 History amlodipine 5 mg tablet 2.5 mg PO QAM 05/20/23 05/20/23 History bosutinib 400 mg tablet (Bosulif) 400 mg PO HS 05/20/23 05/20/23 History lisinopril 20 mg tablet 20 mg PO QAM 05/20/23 05/20/23 History Patient History Medical History (Updated 05/21/23 @ 12:16 by Yaniv Luis DO) CML (chronic myelocytic leukemia) HLD (hyperlipidemia) HTN (hypertension) Surgical History (Updated 05/20/23 @ 14:52 by Angelique Ramires PA-C) History of carpal tunnel surgery Hx of colonoscopy Hx of repair of rotator cuff Family History (Updated 05/20/23 @ 15:54 by Angelique Ramires PA-C) Other Family history non-contributory Social History (Updated 05/20/23 @ 15:57 by Angelique Ramires PA-C) Smoking Status: Former smoker Hx Alcohol Use: No Hx Substance Use: No Preferred Language: Chadian Communication Ability: Effective Beliefs That Will Affect Care: None Current Living Situation: Spouse Other Information That Helps Us Care for You: No Feels Safe at Home: Yes Safety Concerns: Feels Safe At This Time Review of Systems Review of Systems: All systems reviewed & are unremarkable except as noted in Subjective Physical Exam Constitutional: well nourished; no acute distress Respiratory: no respiratory distress, no labored breathing and no retractions Auscultation: + diminished lung sounds (Bases bilateral) and + rales (Bilateral mid lung chanel); no rhonchi and no wheezes Cardiovascular: Rate/Rhythm: regular rate and regular rhythm Heart Sounds: normal S1 and normal S2; no murmur Vessels: + JVD and radial pulses present; no carotid bruit Extremities: + edema (2+ bilateral pretibial edema) Gastrointestinal (Abdomen): Inspection/Auscultation: normal bowel sounds; + abdomen abnormal to inspection and abdomen not distended Percussio n/Palpation: abdomen soft; abdomen nontender, no guarding and abdomen not rigid Neurologic: CN's II-XI intact bilaterally and moves all extremities; no focal motor deficits Results & Data Vital Signs (Past 12 Hours) Vital Signs Temp Pulse Pulse Resp BP Pulse Ox O2 Del Method 05/21/23 08:11 36.6 C 51 L 19 144/74 H 92 Room Air, CPAP 05/21/23 07:16 50 L 23 97 05/21/23 05:04 36.6 C 48 L 18 133/72 97 BiPAP 05/21/23 02:21 48 L 26 H 94 05/20/23 22:00 52 L 05/20/23 23:00 36.8 C 51 L 18 143/72 H 92 BiPAP 05/21/23 01:26 151/66 H 05/20/23 22:26 158/82 H 05/21/23 00:55 52 L 22 05/20/23 22:30 22 97 FiO2 05/21/23 08:11 05/21/23 07:16 30 05/21/23 05:04 05/21/23 02:21 30 05/20/23 22:00 05/20/23 23:00 05/21/23 01:26 05/20/23 22:26 05/21/23 00:55 30 05/20/23 22:30 30 Laboratory Results Cardiac Enzymes 05/20/23 05/20/23 05/20/23 Range/Units 11:35 11:35 15:54 AST 20 (13-39) U/L Lactate Dehydrogenase 160 (86-244) U/L Troponin I High Sens 24.8 H (0-20) pg/ml B-Natriuretic Peptide 878 H (0-100) pg/ml 05/20/23 05/20/23 05/21/23 Range/Units 15:55 22:32 02:08 AST 16 (13-39) U/L Lactate Dehydrogenase (86-244) U/L Troponin I High Sens 27.0 H 23.4 H (0-20) pg/ml B-Natriuretic Peptide (0-100) pg/ml Coagulation 05/20/23 Range/Units 11:35 B-Natriuretic Peptide 878 H (0-100) pg/ml CBC 05/21/23 Range/Units 02:08 WBC 8.60 (4.8-10.8) K/ul RBC 4.48 L (4.70-6.10) M/uL Hgb 12.2 L (14.0-18.0) g/dl Hct 38.0 L (42.0-52.0) % Plt Count 144 (130-400) K/uL Neut # (Auto) 5.35 (1.40-6.50) K/uL Lymph # (Auto) 2.42 (1.20-3.40) K/uL [place] # (Auto) 0.73 H (0.11-0.59) K/uL Eos # (Auto) 0.06 (0.00-0.50) K/uL Baso # (Auto) 0.03 (0.00-0.20) K/uL Comprehensive Metabolic Panel 05/20/23 05/21/23 Range/Units 11:35 02:08 Sodium 137 137 (136-145) mmol/L Potassium 3.9 3.7 (3.5-5.1) mmol/L Chloride 100 100 (98-107) mmol/L Carbon Dioxide 30 33 H (21-32) mmol/L BUN 14 15 (6-23) mg/dl Creatinine 0.88 0.97 (0.6-1.4) mg/dl Glucose 102 H 91 (70-99(Fasting)) mg/dl Calcium 9.2 8.1 L (8.6-10.3) mg/dl AST 20 16 (13-39) U/L ALT 11 9 (7-52) U/L Alkaline Phosphatase 148 H 117 H (34-104) U/L Total Protein 7.8 6.3 (6.0-8.3) gm/dl Albumin 4.6 3.6 (3.4-5.0) gm/dl Intake and Output 05/20/23 05/21/23 05/21/23 22:59 06:59 14:59 Intake Total 100 / 100 Output Total 2265 / 3365 1100 / 3365 Balance -2164 / -3265 -1099 / -3265 Intake: Oral 100 / 100 Output: Urine 740 / 740 Urine Amount (Catheter) 1525 / 2625 1100 / 2625 Byrne/Indwelling 1525 / 2625 1100 / 2625 Other: Weight 96 kg 90.3 kg 90 kg Weight Measurement Method Built in [facility] Built in [facility] Built in [facility] Patient Weight 05/22/23 06:59 Weight 90 kg Diagnostic Findings 2D echo report: Left ventricular ejection fraction 55-60% Mild concentric left ventricular hypertrophy Aortic valve sclerosis, mild, without significant stenosis Mild tricuspid regurgitation Pulmonary pressure 39 mmHg Borderline dilated IVC with reduced inspiratory variation Large left pleural effusion
--- NOTE | 2023-05-21 14:53 | Hospitalist Progress Note ---
Date of Service May 21, 2023 Assessment & Plan (1) Acute respiratory failure with hypoxia and hypercapnia: (2) Pulmonary edema: (3) Shortness of breath: (4) HTN (hypertension): (5) HLD (hyperlipidemia): (6) CML (chronic myelocytic leukemia): Plan: Patient is an 82 yr male with H/O CML on Bosulif, HTN, HLD, BPH, who has had swelling in his legs starting at least at the beginning of March. He has been followed by cardiology as an outpatient, and had a recent echocardiogram completed on 04/07/2023 for such. Presented with increased worsening shortness of breath and edema in legs. 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 No central pulmonary emboli identified. Cardiomegaly with volume overload manifested by pulmonary edema, moderate to large pleural effusions, anasarca and small volume of upper abdominal ascites. Consolidation with volume loss of the lower lobes suggestive of compressive atelectasis. Bilateral pleural calcifications. --ECHO: EF 55 to 60%. Mild concentric LVH. Mild tricuspid regurgitation. Estimated systolic pulmonary pressure 39 mmHg. Large left pleural effusion. No pericardial effusion. Normal IVC diameter with reduced respiratory variation suggesting a right atrial pressure of 8 mmHg --BNP elevated --Continue IV diuresis --Continue Fluid restriction Appreciate cardiology input Monitor I's and O's, daily weight Also on atenolol, consider transitioning to metoprolol Monitor volume status, electrolytes, renal function Wean off of supplemental oxygen as able Acute metabolic encephalopathy Likely secondary to above Mental status seem to be back to baseline Monitor Sinus bradycardia Atenolol dose decreased to 12.5 mg daily Monitor Mild elevation of troponin Likely secondary to demand ischemia due to CHF, hypoxia HTN Continue lisinopril, atenolol with holding parameters Hold amlodipine for now Monitor HLP Continue Lipitor CML, 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 Trending of BCRABL 1, P2 Y0 has been negative and has not showed any progression of disease Discussed with Dr. Christiano Navarrete on 05/21/2023: Can hold bosutinib for now. Recommends to follow-up with oncology on discharge DVT Px: Lovenox SQ CODE STATUS: Full code Admission and Anticipated Discharge Date Admission Date: May 20, 2023 Subjective Patient is seen and examined at bedside Dyspnea better since hospitalization Saturating well on 2 L supplemental oxygen Denies any chest pain, cough, dizziness, nausea, vomiting, abdominal pain Discussed with oncology Dr. Navarrete today Also reports leg edema Review of Systems Review of Systems: All systems reviewed & are unremarkable except as noted in HPI & below Physical Exam Physical Exam: Physical Exam: Vitals signs as noted above General Appearance:Moderately built and nourished, no apparent distress Head: normocephalic, Atraumatic Eyes: normal inspection, EOMI Neck: supple, Trachea midline Respiratory/Chest: Decreased breath sounds B/L bases, No accessory muscle use Cardiovascular: S1, S2, No murmur,+Bradycardia Abdomen/GI:Soft, Non tender, Bowel sounds present Extremities/Musculoskeletal:normal inspection, 2+ B/L LE edema Neurologic/Psych:AAOX3, grossly no focal neurological deficits Skin: normal color, warm Results & Data Results & Data Vital Signs (Past 12 Hours) Vital Signs Temp Pulse Pulse Resp BP Pulse Ox O2 Del Method 05/21/23 11:55 36.8 C 50 L 18 116/56 L 97 Nasal Cannula 05/21/23 08:11 36.6 C 51 L 19 144/74 H 92 Room Air, CPAP 05/21/23 07:16 50 L 23 97 05/21/23 05:04 36.6 C 48 L 18 133/72 97 BiPAP O2 Flow Rate FiO2 05/21/23 11:55 2 05/21/23 08:11 05/21/23 07:16 30 05/21/23 05:04 Laboratory Results Short CBC 05/21/23 Range/Units 02:08 WBC 8.60 (4.8-10.8) K/ul Hgb 12.2 L (14.0-18.0) g/dl Hct 38.0 L (42.0-52.0) % Plt Count 144 (130-400) K/uL BMP 05/21/23 02:08 Sodium 137 Potassium 3.7 Chloride 100 Carbon Dioxide 33 H BUN 15 Creatinine 0.97 Glucose 91 Calcium 8.1 L Liver Function 05/21/23 Range/Units 02:08 Total Bilirubin 0.6 (0.2-1.0) mg/dl AST 16 (13-39) U/L ALT 9 (7-52) U/L Alkaline Phosphatase 117 H (34-104) U/L Albumin 3.6 (3.4-5.0) gm/dl Urine 05/20/23 Range/Units 15:48 Urine Color Yellow Urine Appearance Clear (Clear) Urine pH 5.0 (4.5-7.5) Ur Specific [place] 1.037 H (1.000-1.030) Urine Protein 2+ H (Negative) Urine Glucose (UA) Negative (Negative)
[2023-05-21] MEDS: ATORVASTATIN 20 MG TAB PO SCH (20:52)
[2023-05-21] MEDS ORDERED: ATENOLOL 25 MG TABLET PO SCH (21:00)
[2023-05-22 05:21] LABS: Hematocrit (blood only) 37.5 % (42.0-52.0); Mean Corpuscular Hemoglobin 26.9 pg (25.0-34.0); Mean Corpuscular Volume 84.1 fL (80.0-100.0); Mean Platelet Volume 10.7 fL (9.4-12.4); Platelet Count 119 K/uL (130-400); RDW Standard Deviation 51.4 fL (36.4-46.3); Red Blood Count 4.46 M/uL (4.70-6.10); White Blood Count 7.29 K/ul (4.8-10.8)
[2023-05-22 05:36] LABS: BUN Creatinine Ratio 15.4 (10-20); Calcium 8.2 mg/dl (8.6-10.3); Creatinine Clr Calc Pharmacy 62.2 ml/min; Est GFR (African American) 78.2 ml/min; Est GFR (Non-African American) 67.5 ml/min; Magnesium 1.9 mg/dl (1.7-2.4); Potassium 3.8 mmol/L (3.5-5.1)
[2023-05-22] MEDS: ENOXAPARIN INJ 40 MG/0.4 ML SYR SQ SCH (08:42)
[2023-05-22] MEDS: lisinopril 20 MG TAB PO SCH (08:42)
[2023-05-22] MEDS: FUROSEMIDE 40 MG/4 ML VIAL IV SCH ×2 (08:43→16:36)
--- NOTE | 2023-05-22 13:42 | Cardiology Progress Note ---
Date of Service May 22, 2023 Assessment & Plan (1) Acute heart failure with preserved ejection fraction: (2) Pleural effusion, bilateral: (3) Sinus bradycardia: Plan 82-year-old patient admitted with acute respiratory failure secondary to heart failure with preserved ejection fraction. Fluid balance -3.2 L since admission. Recommend titration of IV furosemide to 40 mg twice daily. Follow daily weight, fluid balance, electrolytes, and GFR. Supplement electrolytes as ind icated. Consider addition of low-dose spironolactone pending clinical course and review of a.m. labs. Supplement oxygen as needed. Reduce atenolol to 12.5 mg daily given resting bradycardia. Consider transition to metoprolol pending clinical course. Hold amlodipine. Mildly elevated high-sensitivity troponin secondary to acute heart failure and hypoxia. Consider further ischemic evaluation as an outpatient. Thank you for allow me to participate in the care of your patient. 05/22/2023 Acute respiratory failure improving, renal function tolerating diuresis Patient responding to IV diuretics would continue Change atenolol to metoprolol succinate, CHF indicated beta-tony Repeat chest x-ray a.m. Admission and Anticipated Discharge Date Admission Date: May 20, 2023 Subjective Patient seen and examined, chart, medications, telemetry reviewed. He denies any complaints and has made good strides with diuresis. Respiratory status improved per patient Urinary outs 6 L output Chest exam still with diminished breath sounds left greater than right Physical Exam Constitutional: well nourished; no acute distress Respiratory: no respiratory distress, no labored breathing and no retractions Auscultation: + diminished lung sounds (Bases bilateral) and + rales (Bilateral mid lung chanel); no rhonchi and no wheezes Cardiovascular: Rate/Rhythm: regular rate and regular rhythm Heart Sounds: normal S1 and normal S2; no murmur Vessels: + JVD and radial pulses present; no carotid bruit Extremities: + edema (2+ bilateral pretibial edema) Gastrointestinal (Abdomen): Inspection/Auscultation: normal bowel sounds; + abdomen abnormal to inspection and abdomen not distended Percussion/Palpation: abdomen soft; abdomen nontender, no guarding and abdomen not rigid Neurologic: CN's II-XI intact bilaterally and moves all extremities; no focal motor deficits Results & Data Vital Signs (Past 12 Hours) Vital Signs Temp Pulse Pulse Resp BP Pulse Ox Pulse Ox 05/22/23 11:08 36.7 C 91 H 19 118/55 L 95 05/22/23 08:00 89 L 05/22/23 08:00 05/22/23 07:20 36.4 C L 50 L 19 143/67 H 98 05/22/23 04:37 36.6 C 45 L 18 110/62 97 05/22/23 02:36 60 23 95 O2 Del Method O2 Del Method O2 Flow Rate O2 Flow Rate FiO2 05/22/23 11:08 Nasal Cannula 2 05/22/23 08:00 Nasal Cannula 3 05/22/23 08:00 Nasal Cannula 2 05/22/23 07:20 CPAP 05/22/23 04:37 BiPAP 05/22/23 02:36 30 Laboratory Results Laboratory Results - last 24 hr 05/22/23 05/22/23 04:28 04:28 WBC 7.29 RBC 4.46 L Hgb 12.0 L Hct 37.5 L MCV 84.1 MCH 26.9 MCHC 32.0 RDW Std Deviation 51.4 H RDW Coeff of Ebony 17.0 H Plt Count 119 L MPV 10.7 Sodium 139 Potassium 3.8 Chloride 98 Carbon Dioxide 37 H Anion Gap 4 BUN 16 Creatinine 1.04 Est Cr Clr Drug Dosing 62.2 Est GFR ( Amer) 78.2 Est GFR (Non-Af Amer) 67.5 BUN/Creatinine Ratio 15.4 Glucose 83 Calcium 8.2 L Magnesium 1.9
--- NOTE | 2023-05-22 16:40 | Hospitalist Progress Note ---
Date of Service May 22, 2023 Assessment & Plan (1) Acute respiratory failure with hypoxia and hypercapnia: (2) Pulmonary edema: (3) Shortness of breath: (4) HTN (hypertension): (5) HLD (hyperlipidemia): (6) CML (chronic myelocytic leukemia): Plan: Patient is an 82 yr male with H/O CML on Bosulif, HTN, HLD, BPH, who has had swelling in his legs starting at least at the beginning of March. He has been followed by cardiology as an outpatient, and had a recent echocardiogram completed on 04/07/2023 for such. Presented with increased worsening shortness of breath and edema in legs. 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 No central pulmonary emboli identified. Cardiomegaly with volume overload manifested by pulmonary edema, moderate to large pleural effusions, anasarca and small volume of upper abdominal ascites. Consolidation with volume loss of the lower lobes suggestive of compressive atelectasis. Bilateral pleural calcifications. --ECHO: EF 55 to 60%. Mild concentric LVH. Mild tricuspid regurgitation. Estimated systolic pulmonary pressure 39 mmHg. Large left pleural effusion. No pericardial effusion. Normal IVC diameter with reduced respiratory variation suggesting a right atrial pressure of 8 mmHg --BNP elevated --Continue Fluid restriction Appreciate cardiology input Monitor I's and O's, daily weight Also on atenolol, consider transitioning to metoprolol Monitor volume status, electrolytes, renal function Wean off of supplemental oxygen as able Diuresing well with IV Lasix We will repeat chest x-ray tomorrow Acute metabolic encephalopathy Likely secondary to above Mental status seem to be back to baseline Monitor Sinus bradycardia Atenolol dose decreased to 12.5 mg daily Monitor Mild elevation of troponin Likely secondary to demand ischemia due to CHF, hypoxia HTN Continue lisinopril, atenolol with holding parameters Hold amlodipine for now Monitor HLP Continue Lipitor CML, 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 Trending of BCRABL 1, P2 Y0 has been negative and has not showed any progression of disease Discussed with Dr. Christiano Navarrete on 05/21/2023: Can hold bosutinib for now. Recommends to follow-up with oncology on discharge DVT Px: Lovenox SQ CODE STATUS: Full code Admission and Anticipated Discharge Date Admission Date: May 20, 2023 Subjective Patient is seen and examined at bedside Less dyspnea today No new complaints Saturating well on 3 L supplemental oxygen Discussed with cardiology today Denies any chest pain, cough, dizziness, nausea, vomiting, abdominal pain Review of Systems Review of Systems: All systems reviewed & are unremarkable except as noted in Subjective Physical Exam Physical Exam: Physical Exam: Vitals signs as noted above General Appearance:Moderately built and nourished, no apparent distress Head: normocephalic, Atraumatic Eyes: normal inspection, EOMI Neck: supple, Trachea midline Respiratory/Chest: Decreased breath sounds B/L bases, scattered wheezes at bases, no accessory muscle use Cardiovascular: S1, S2, No murmur,+Bradycardia Abdomen/GI:Soft, Non tender, Bowel sounds present Extremities/Musculoskeletal:normal inspection, 2+ B/L LE edema Neurologic/Psych:AAOX3, grossly no focal neurological deficits Skin: normal color, warm Results & Data Results & Data Vital Signs (Past 12 Hours) Vital Signs Temp Pulse Resp BP Pulse Ox Pulse Ox O2 Del Method 05/22/23 16:00 96 05/22/23 15:50 37.1 C 54 L 19 149/61 H 97 Nasal Cannula 05/22/23 14:17 96 05/22/23 11:08 36.7 C 91 H 19 118/55 L 95 Nasal Cannula 05/22/23 08:00 89 L 05/22/23 08:00 Nasal Cannula 05/22/23 07:20 36.4 C L 50 L 19 143/67 H 98 CPAP O2 Del Method O2 Flow Rate O2 Flow Rate 05/22/23 16:00 Nasal Cannula 3 05/22/23 15:50 2 05/22/23 14:17 05/22/23 11:08 2 05/22/23 08:00 Nasal Cannula 3 05/22/23 08:00 2 05/22/23 07:20 Laboratory Results Short CBC 05/22/23 Range/Units 04:28 WBC 7.29 (4.8-10.8) K/ul Hgb 12.0 L (14.0-18.0) g/dl Hct 37.5 L (42.0-52.0) % Plt Count 119 L (130-400) K/uL BMP 05/22/23 04:28 Sodium 139 Potassium 3.8 Chloride 98 Carbon Dioxide 37 H BUN 16 Creatinine 1.04 Glucose 83 Calcium 8.2 L
[2023-05-22] MEDS: METOPROLOL SUCC 25MG EXT REL TAB PO SCH (19:32)
[2023-05-22] MEDS: ATORVASTATIN 20 MG TAB PO SCH (19:33)
[2023-05-23 05:29] LABS: Hematocrit (blood only) 35.4 % (42.0-52.0); Hemoglobin 11.5 g/dl (14.0-18.0); Mean Corpuscular Hemoglobin 27.3 pg (25.0-34.0); Mean Corpuscular Hgb Conc 32.5 g/dL (32.0-36.0); Mean Corpuscular Volume 83.9 fL (80.0-100.0); Platelet Count 118 K/uL (130-400); RDW Coefficient of Variation 17.2 % (11.5-14.5); RDW Standard Deviation 51.8 fL (36.4-46.3); Red Blood Count 4.22 M/uL (4.70-6.10); White Blood Count 6.68 K/ul (4.8-10.8)
[2023-05-23 05:43] LABS: BUN Creatinine Ratio 20.4 (10-20); Creatinine Clr Calc Pharmacy 69.5 ml/min; Est GFR (African American) 89.5 ml/min; Est GFR (Non-African American) 77.3 ml/min; Potassium 3.7 mmol/L (3.5-5.1)
--- NOTE | 2023-05-23 08:18 | XRay Report ---
XR chest 1V portable HISTORY: Pleural effusion COMPARISON: Chest CT 05/20/2023. FINDINGS: No pneumothorax. The cardiac silhouette remains mildly enlarged. The pulmonary edema, bilat eral pleural effusions, and bibasilar airspace opacities have slightly improved. IMPRESSION: Slight improvement in the pulmonary edema and bilateral pleural effusions/opacities. ACT 112: N Electronically signed by: Javier Vaughan M.D. 05/23/2023 8:17 AM
[2023-05-23] MEDS: lisinopril 20 MG TAB PO SCH (08:39)
[2023-05-23] MEDS: FUROSEMIDE 40 MG/4 ML VIAL IV SCH ×2 (08:39→18:21)
[2023-05-23] MEDS: ENOXAPARIN INJ 40 MG/0.4 ML SYR SQ SCH (08:39)
--- NOTE | 2023-05-23 12:48 | Cardiology Progress Note ---
Date of Service May 23, 2023 Assessment & Plan (1) Acute heart failure with preserved ejection fraction: (2) Pleural effusion, bilateral: (3) Sinus bradycardia: Plan 82-year-old patient admitted with acute respiratory failure secondary to heart failure with preserved ejection fraction. 05/22/2023 Acute respiratory failure improving, renal function tolerating diuresis Patient responding to IV diuretics would continue Change atenolol to metoprolol succinate, CHF indicated beta-tony Repeat chest x-ray a.m. 05/23/2023 Continued improvement in respiratory status and diuresis. Would continue IV diuretics. We will add spironolactone 12.5 mg daily Admission and Anticipated Discharge Date Admission Date: May 20, 2023 Subjective Patient seen and examined, chart, medications, telemetry reviewed Sitting out of bed in chair. Respiratory status improved. Continues to manifest good diuresis and chest x-ray improving. No tachypalpitations dizziness no chest pain or discomfort. Review of Systems Review of Systems: All systems reviewed & are unremarkable except as noted in Subjective Physical Exam Constitutional: well nourished; no acute distress Respiratory: no respiratory distress, no labored breathing and no retractions Auscultation: + diminished lung sounds (Bases bilateral) and + rales (Bilateral mid lung chanel); no rhonchi and no wheezes Cardiovascular: Rate/Rhythm: regular rate and regular rhythm Heart Sounds: normal S1 and normal S2; no murmur Vessels: + JVD and radial pulses present; no carotid bruit Extremities: + edema (2+ bilateral pretibial edema) Gastrointestinal (Abdomen): Inspection/Auscultation: normal bowel sounds; + abdomen abnormal to inspection and abdomen not distended Percussion/Palpation : abdomen soft; abdomen nontender, no guarding and abdomen not rigid Neurologic: CN's II-XI intact bilaterally and moves all extremities; no focal motor deficits Results & Data Vital Signs (Past 12 Hours) Vital Signs Temp Pulse Pulse Resp BP Pulse Ox Pulse Ox 05/23/23 10:52 36.8 C 92 H 19 115/45 L 99 05/23/23 08:00 05/23/23 08:00 37 C 05/23/23 08:00 95 05/23/23 07:00 48 L 05/23/23 07:21 36.7 C 52 L 20 127/68 97 05/23/23 02:41 63 93 O2 Del Method O2 Del Method O2 Flow Rate O2 Flow Rate FiO2 05/23/23 10:52 Nasal Cannula 2 05/23/23 08:00 Nasal Cannula 2 05/23/23 08:00 05/23/23 08:00 Nasal Cannula 2 05/23/23 07:00 05/23/23 07:21 BiPAP 05/23/23 02:41 30 Laboratory Results Laboratory Results - last 24 hr 05/23/23 05/23/23 04:45 04:45 WBC 6.68 RBC 4.22 L Hgb 11.5 L Hct 35.4 L MCV 83.9 MCH 27.3 MCHC 32.5 RDW Std Deviation 51.8 H RDW Coeff of Ebony 17.2 H Plt Count 118 L MPV 11.0 Sodium 138 Potassium 3.7 Chloride 97 L Carbon Dioxide 37 H Anion Gap 4 BUN 19 Creatinine 0.93 Est Cr Clr Drug Dosing 69.5 Est GFR ( Amer) 89.5 Est GFR (Non-Af Amer) 77.3 BUN/Creatinine Ratio 20.4 H Glucose 86 Calcium 8.0 L
[2023-05-23] MEDS ORDERED: SPIRONOLACTONE 12.5 MG TAB PO SCH (13:00)
--- NOTE | 2023-05-23 16:31 | Hospitalist Progress Note ---
Date of Service May 23, 2023 Assessment & Plan (1) Acute respiratory failure with hypoxia and hypercapnia: (2) Pulmonary edema: (3) Shortness of breath: (4) HTN (hypertension): (5) HLD (hyperlipidemia): (6) CML (chronic myelocytic leukemia): Plan: Patient is an 82 yr male with H/O CML on Bosulif, HTN, HLD, BPH, who has had swelling in his legs starting at least at the beginning of March. He has been followed by cardiology as an outpatient, and had a recent echocardiogram completed on 04/07/2023 for such. Presented with increased worsening shortness of breath and edema in legs. 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 No central pulmonary emboli identified. Cardiomegaly with volume overload manifested by pulmonary edema, moderate to large pleural effusions, anasarca and small volume of upper abdominal ascites. Consolidation with volume loss of the lower lobes suggestive of compressive atelectasis. Bilateral pleural calcifications. --ECHO: EF 55 to 60%. Mild concentric LVH. Mild tricuspid regurgitation. Estimated systolic pulmonary pressure 39 mmHg. Large left pleural effusion. No pericardial effusion. Normal IVC diameter with reduced respiratory variation suggesting a right atrial pressure of 8 mmHg --BNP elevated --Continue Fluid restriction Appreciate cardiology input Monitor I's and O's, daily weight Atenolol transition to metoprolol 12.5 mg daily Monitor volume status, electrolytes, renal function Continue IV Lasix 40 mg twice a day CXR today showed improved improved pulmonary edema, bilateral pleural effusions Added spironolactone Weaned off of supplemental oxygen Acute metabolic encephalopathy Likely secondary to above Mental status seem to be back to baseline Monitor Sinus bradycardia Monitor while on metoprolol Mild elevation of troponin Likely secondary to demand ischemia due to CHF, hypoxia HTN Continue lisinopril, metoprolol Resume amlodipine as able Monitor HLP Continue Lipitor CML, 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 Trending of BCRABL 1, P2 Y0 has been negative and has not showed any progression of disease Discussed with Dr. Christiano Navarrete on 05/21/2023: Can hold bosutinib for now. Recommends to follow-up with oncology on discharge DVT Px: Lovenox SQ CODE STATUS: Full code Admission and Anticipated Discharge Date Admission Date: May 20, 2023 Subjective Patient is seen and examined at bedside No new complaints Denies any dyspnea today Saturating well on room air Denies any chest pain, cough, dizziness, nausea, vomiting, abdominal pain Review of Systems Review of Systems: All systems reviewed & are unremarkable except as noted in Subjective Physical Exam Physical Exam: Physical Exam: Vitals signs as noted above General Appearance:Moderately built and nourished, no apparent distress Head: normocephalic, Atraumatic Eyes: normal inspection, EOMI Neck: supple, Trachea midline Respiratory/Chest: Decreased breath sounds B/L bases, no accessory muscle use Cardiovascular: S1, S2, No murmur,+Bradycardia Abdomen/GI:Soft, Non tender, Bowel sounds present Extremities/Musculoskeletal:normal inspection, 2+ B/L LE edema Neurologic/Psych:AAOX3, grossly no focal neurological deficits Skin: normal color, warm Results & Data Results & Data Vital Signs (Past 12 Hours) Vital Signs Temp Pulse Pulse Resp BP Pulse Ox Pulse Ox 05/23/23 16:00 37 C 05/23/23 16:00 95 05/23/23 15:17 36.7 C 58 L 19 171/72 H 91 05/23/23 10:52 36.8 C 92 H 19 115/45 L 99 05/23/23 08:00 05/23/23 08:00 37 C 05/23/23 08:00 95 05/23/23 07:00 48 L 05/23/23 07:21 36.7 C 52 L 20 127/68 97 O2 Del Method O2 Del Method O2 Flow Rate O2 Flow Rate 05/23/23 16:00 05/23/23 16:00 Room Air 05/23/23 15:17 Room Air 05/23/23 10:52 Nasal Cannula 2 05/23/23 08:00 Nasal Cannula 2 05/23/23 08:00 05/23/23 08:00 Nasal Cannula 2 05/23/23 07:00 05/23/23 07:21 BiPAP Laboratory Results Short CBC 05/23/23 Range/Units 04:45 WBC 6.68 (4.8-10.8) K/ul Hgb 11.5 L (14.0-18.0) g/dl Hct 35.4 L (42.0-52.0) % Plt Count 118 L (130-400) K/uL [facility] 05/23/23 04:45 Sodium 138 Potassium 3.7 Chloride 97 L Carbon Dioxide 37 H BUN 19 Creatinine 0.93 Glucose 86 Calcium 8.0 L
[2023-05-23] MEDS: ATORVASTATIN 20 MG TAB PO SCH (19:45)
[2023-05-23] MEDS: METOPROLOL SUCC 25MG EXT REL TAB PO SCH (20:36)
[2023-05-24 06:13] LABS: Hematocrit (blood only) 34.6 % (42.0-52.0); Hemoglobin 11.2 g/dl (14.0-18.0); Mean Corpuscular Hemoglobin 27.1 pg (25.0-34.0); Mean Corpuscular Hgb Conc 32.4 g/dL (32.0-36.0); Mean Corpuscular Volume 83.6 fL (80.0-100.0); Platelet Count 118 K/uL (130-400); RDW Coefficient of Variation 17.4 % (11.5-14.5); RDW Standard Deviation 52.3 fL (36.4-46.3); Red Blood Count 4.14 M/uL (4.70-6.10); White Blood Count 6.62 K/ul (4.8-10.8)
[2023-05-24 06:34] LABS: BUN Creatinine Ratio 19.6 (10-20); Calcium 8.2 mg/dl (8.6-10.3); Creatinine Clr Calc Pharmacy 63.4 ml/min; Est GFR (African American) 80.1 ml/min; Est GFR (Non-African American) 69.1 ml/min; Potassium 3.5 mmol/L (3.5-5.1)
--- NOTE | 2023-05-24 08:15 | Cardiology Progress Note ---
Date of Service May 24, 2023 Assessment & Plan (1) Acute heart failure with preserved ejection fraction: (2) Pleural effusion, bilateral: (3) Sinus bradycardia: Plan 82-year-old patient admitted with acute respiratory failure secondary to heart failure with preserved ejection fraction. 05/23/2023: Ongoing diuresis with IV Lasix, putting out about 2L/day. BP and electrolytes stable. -Continue IV Lasix 40 mg twice daily. -Increase spironolactone to 25 mg daily. -BMP in the am. Potassium goal of 4.0 and mag goal of 2.0, replace as indicated. Bradycardia and PVCs noted on telemetry- patient asymptomatic. Continue metoprolol succinate as ordered. 05/23/2023 Continued improvement in respiratory status and diuresis. Would continue IV diuretics. We will add spironolactone 12.5 mg daily 05/22/2023 Acute respiratory failure improving, renal function tolerating diuresis Patient responding to IV diuretics would continue Change atenolol to metoprolol succinate, CHF indicated beta-tony Repeat chest x-ray a.m. Case discussed with Dr. Fay- will follow. Admission and Anticipated Discharge Date Admission Date: May 20, 2023 Supervising Physician Co-Signing Physician Notes Patient seen and examined personally. Responding to diuretic therapy agree with plans as noted above continue additional 24 hours IV furosemide. Increase spironolactone Telemetry demonstrates sinus rhythm with ventricular ectopy, bigeminy. We will supplement potassium, increase spironolactone as noted Subjective Patient seen and examined, chart, medications, telemetry reviewed. 05/22: Continued IV diursis Atenolol transitioned to metoprolol succinate. 05/23: Ongoing diuresis with IV Lasix- CXR improving. Spironolactone 12.5 mg daily started. 05/24: Sitting up in bed. No acute concerns- notes improvement in respiratory status. Wore CPAP over night and supplemental O2 during the day. Continues to manifest good diuresis. Byrne cath in place. No tachy-palpitations, dizziness, no chest pain. Tele: SR with PVCs, bigeminy pattern overnight- HR 50-70s I&O: -9.5 L (~2L out/day) Weight: 96 kg >>91.2 kg (05/24) Review of Systems Review of Systems: All systems reviewed & are unremarkable except as noted in HPI & below Physical Exam Constitutional: well nourished; no acute distress Respiratory: no respiratory distress, no labored breathing and no retractions Auscultation: + diminished lung sounds (Bases bilateral) and + rales (Bilateral mid lung chanel); no rhonchi and no wheezes Cardiovascular: Rate/Rhythm: regular rate and regular rhythm Heart Sounds: normal S1 and normal S2; no murmur Vessels: radial pulses present; no JVD and no carotid bruit Extremities: + edema (1+ bilateral pretibial edema) Gastrointestinal (Abdomen): Inspection/Auscultation: normal bowel sounds; + abdomen abnormal to inspection and abdomen not distended Percussion/Palpation: abdomen soft; abdomen nontender, no guarding and abdomen not rigid Neurologic: CN's II-XI intact bilaterally and moves all extremities; no focal motor deficits Psychiatric: A+Ox3, euthymic affect Results & Data Vital Signs (Past 12 Hours) Vital Signs Temp Pulse Pulse Resp BP Pulse Ox O2 Del Method 05/24/23 07:26 36.8 C 50 L 18 130/71 98 BiPAP 05/23/23 22:00 56 L 05/24/23 03:27 36.3 C L 52 L 20 107/57 L 97 BiPAP 05/23/23 22:20 56 L 27 H 95 05/23/23 23:10 37.2 C 55 L 22 118/62 97 BiPAP FiO2 05/24/23 07:26 05/23/23 22:00 05/24/23 03:27 05/23/23 22:20 30 05/23/23 23:10 Laboratory Results CBC 05/24/23 Range/Units 05:22 WBC 6.62 (4.8-10.8) K/ul RBC 4.14 L (4.70-6.10) M/uL Hgb 11.2 L (14.0-18.0) g/dl Hct 34.6 L (42.0-52.0) % Plt Count 118 L (130-400) K/uL Comprehensive Metabolic Panel 05/24/23 Range/Units 05:22 Sodium 138 (136-145) mmol/L Potassium 3.5 (3.5-5.1) mmol/L Chloride 96 L (98-107) mmol/L Carbon Dioxide 39 H (21-32) mmol/L BUN 20 (6-23) mg/dl Creatinine 1.02 (0.6-1.4) mg/dl Glucose 92 (70-99(Fasting)) mg/dl Calcium 8.2 L (8.6-10.3) mg/dl Intake and Output 05/23/23 05/24/23 05/24/23 22:59 06:59 14:59 Intake Total 240 / 920 Output Total 925 / 2925 300 / 2925 Balance - - Intake: Oral 240 / 920 Output: Urine 300 / 800 Urine Amount (Catheter) / 2124 Byrne/Indwelling 2124 Other: Weight 91.2 kg Weight Measurement Method Built in [facility]
[2023-05-24] MEDS: lisinopril 20 MG TAB PO SCH (08:33)
[2023-05-24] MEDS: SPIRONOLACTONE 25 MG TAB PO SCH (08:33)
[2023-05-24] MEDS: ENOXAPARIN INJ 40 MG/0.4 ML SYR SQ SCH (08:34)
[2023-05-24] MEDS: FUROSEMIDE 40 MG/4 ML VIAL IV SCH ×2 (08:34→16:41)
[2023-05-24] MEDS: POTASSIUM CHLORIDE CRTAB 20 MEQ TABCR PO SCH ×2 (10:31→19:42)
--- NOTE | 2023-05-24 13:46 | XRay Report ---
SINGLE VIEW CHEST CLINICAL HISTORY: Pulmonary edema FINDINGS: 2 AP, portable, upright chest radiographs are compared to study dated 05/23/2023 and correla jackelyn with chest CT dated 05/20/2023. The heart is enlarged. There is pulmonary vascular congestion. The re are layering pleural effusions with dependent consolidation. No pneumothorax is seen. The skeletal structures are osteopenic. The bony thorax is grossly intact. Advanced arthritic change is noted in the shoulders. IMPRESSION: 1. Cardiomegaly with evidence of congestive failure. This is similar to yesterday. 2. Layering pleural effusions with dependent consolidation. ACT 112: Negative or not required by law. Electronically signed by: Cristian Dover M.D. 05/24/2023 1:45 PM
--- NOTE | 2023-05-24 18:13 | Hospitalist Progress Note ---
Date of Service May 24, 2023 Assessment & Plan (1) Acute respiratory failure with hypoxia and hypercapnia: (2) Pulmonary edema: (3) Shortness of breath: (4) HTN (hypertension): (5) HLD (hyperlipidemia): (6) CML (chronic myelocytic leukemia): Plan: Patient is an 82 yr male with H/O CML on Bosulif, HTN, HLD, BPH, who has had swelling in his legs starting at least at the beginning of March. He has been followed by cardiology as an outpatient, and had a recent echocardiogram completed on 04/07/2023 for such. Presented with increased worsening shortness of breath and edema in legs. 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 No central pulmonary emboli identified. Cardiomegaly with volume overload manifested by pulmonary edema, moderate to large pleural effusions, anasarca and small volume of upper abdominal ascites. Consolidation with volume loss of the lower lobes suggestive of compressive atelectasis. Bilateral pleural calcifications. --ECHO: EF 55 to 60%. Mild concentric LVH. Mild tricuspid regurgitation. Estimated systolic pulmonary pressure 39 mmHg. Large left pleural effusion. No pericardial effusion. Normal IVC diameter with reduced respiratory variation suggesting a right atrial pressure of 8 mmHg --BNP elevated --Continue Fluid restriction Appreciate cardiology input Monitor I's and O's, daily weight Atenolol transition to metoprolol 12.5 mg daily Monitor volume status, electrolytes, renal function Continue IV Lasix 40 mg twice a day Added spironolactone Weaned off of supplemental oxygen May need to adjust dose of metoprolol given bradycardia Aldactone dose increased to 25 mg daily Cardiology following Acute metabolic encephalopathy Likely secondary to above Mental status seem to be back to baseline Monitor Sinus bradycardia Monitor while on metoprolol Mild elevation of troponin Likely secondary to demand ischemia due to CHF, hypoxia HTN Continue lisinopril, metoprolol Resume amlodipine as able Monitor HLP Continue Lipitor CML, 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 Trending of BCRABL 1, P2 Y0 has been negative and has not showed any progression of disease Discussed with Dr. Christiano Navarrete on 05/21/2023: Can hold bosutinib for now. Recommends to follow-up with oncology on discharge DVT Px: Lovenox SQ CODE STATUS: Full code Admission and Anticipated Discharge Date Admission Date: May 20, 2023 Subjective Patient is seen and examined at bedside Continues to diurese well Saturating well on room air Dyspnea resolved Discussed with patient's family at bedside Denies any chest pain, cough, dizziness, nausea, vomiting, abdominal pain Review of Systems Review of Systems: All systems reviewed & are unremarkable except as noted in Subjective Physical Exam Physical Exam: Physical Exam: Vitals signs as noted above General Appearance:Moderately built and nourished, no apparent distress Head: normocephalic, Atraumatic Eyes: normal inspection, EOMI Neck: supple, Trachea midline Respiratory/Chest: Decreased breath sounds B/L bases, no accessory muscle use Cardiovascular: S1, S2, No murmur,+Bradycardia Abdomen/GI:Soft, Non tender, Bowel sounds present Extremities/Musculoskeletal:normal inspection, 2+ B/L LE edema Neurologic/Psych:AAOX3, grossly no focal neurological deficits Skin: normal color, warm Results & Data Results & Data Vital Signs (Past 12 Hours) Vital Signs Temp Pulse Resp BP Pulse Ox Pulse Ox O2 Del Method 05/24/23 15:48 36.9 C 54 L 18 163/79 H 91 Room Air 05/24/23 16:00 95 05/24/23 11:37 36.7 C 47 L 18 120/66 97 Nasal Cannula 05/24/23 08:00 Room Air 05/24/23 07:26 36.8 C 50 L 18 130/71 98 BiPAP O2 Del Method O2 Flow Rate 05/24/23 15:48 05/24/23 16:00 Room Air 05/24/23 11:37 2 05/24/23 08:00 05/24/23 07:26 Laboratory Results Short CBC 05/24/23 Range/Units 05:22 WBC 6.62 (4.8-10.8) K/ul Hgb 11.2 L (14.0-18.0) g/dl Hct 34.6 L (42.0-52.0) % Plt Count 118 L (130-400) K/uL BMP 05/24/23 05:22 Sodium 138 Potassium 3.5 Chloride 96 L Carbon Dioxide 39 H BUN 20 Creatinine 1.02 Glucose 92 Calcium 8.2 L
[2023-05-24] MEDS: ATORVASTATIN 20 MG TAB PO SCH (19:42)
[2023-05-24] MEDS: METOPROLOL SUCC 25MG EXT REL TAB PO SCH (20:30)
[2023-05-25 06:35] LABS: Hematocrit (blood only) 35.5 % (42.0-52.0); Hemoglobin 11.6 g/dl (14.0-18.0); Mean Corpuscular Hemoglobin 27.1 pg (25.0-34.0); Mean Corpuscular Hgb Conc 32.7 g/dL (32.0-36.0); Mean Corpuscular Volume 82.9 fL (80.0-100.0); Mean Platelet Volume 11.1 fL (9.4-12.4); Platelet Count 123 K/uL (130-400); RDW Coefficient of Variation 17.4 % (11.5-14.5); RDW Standard Deviation 52.3 fL (36.4-46.3); Red Blood Count 4.28 M/uL (4.70-6.10); White Blood Count 6.52 K/ul (4.8-10.8)
[2023-05-25 06:53] LABS: BUN Creatinine Ratio 21.6 (10-20); Calcium 8.2 mg/dl (8.6-10.3); Creatinine Clr Calc Pharmacy 63.4 ml/min; Est GFR (African American) 80.1 ml/min; Est GFR (Non-African American) 69.1 ml/min; Magnesium 1.9 mg/dl (1.7-2.4); Potassium 4.1 mmol/L (3.5-5.1)
--- NOTE | 2023-05-25 07:23 | Cardiology Progress Note ---
Date of Service May 25, 2023 Assessment & Plan (1) Acute heart failure with preserved ejection fraction: (2) Pleural effusion, bilateral: (3) Sinus bradycardia: Plan 82-year-old patient admitted with acute respiratory failure secondary to heart failure with preserved ejection fraction. 05/25/2023 Ongoing diuresis with IV Lasix- patient approaching euvolemia. Continue IV Lasix 40 mg BID today, will consider transitioning to oral tomorrow am. Continue increased dose of spironolactone 25 mg daily. Bradycardia and PVCs noted on telemetry- patient asymptomatic. Continue metoprolol succinate as ordered. 05/24/2023: Ongoing diuresis with IV Lasix, putting out about 1-2L/day. BP and electrolytes stable. -Continue IV Lasix 40 mg twice daily. -Increase spironolactone to 25 mg daily. -BMP in the am. Potassium goal of 4.0 and mag goal of 2.0, replace as indicated. Bradycardia and PVCs noted on telemetry- patient asymptomatic. Continue metoprolol succinate as ordered. 05/23/2023 Continued improvement in respiratory status and diuresis. Would continue IV diuretics. We will add spironolactone 12.5 mg daily 05/22/2023 Acute respiratory failure improving, renal function tolerating diuresis Patient responding to IV diuretics would continue Change atenolol to metoprolol succinate, CHF indicated beta-tony Repeat chest x-ray a.m. Case discussed with Dr. Fay- will follow. Admission and Anticipated Discharge Date Admission Date: May 20, 2023 Supervising Physician Co-Signing Physician Notes Patient was seen and personally examined. Clinical status continues to improve with diuresis. Respiratory status much improved now oxygenating on room air. Better aeration on examination both base We will discontinue IV furosemide after p.m. dose today Change medications to oral in a.m. Subjective Patient seen and examined, chart, medications, telemetry reviewed. 05/25: Upon entrance into the room patient sleeping in bed. Woke easily. No acute concerns. No chest pain, dyspnea improving. Still requiring supplemental o2. Tele: SR/SB with PVCs in a bigeminy pattern, rates 40-60s I&O: -10.7L (~1.2L over last 24 hrs) Weight: 96 kg >>91.2 kg (05/25) Labs: BMP and K level stable with increase in Spironolactone 05/24: Ongoing diuresis with IV Lasix- improvement in respiratory status. Spironolactone increased to 25 mg daily 05/23: Ongoing diuresis with IV Lasix- CXR improving. Spironolactone 12.5 mg daily started. 05/22: Continued IV diursis Atenolol transitioned to metoprolol succinate. Review of Systems Review of Systems: All systems reviewed & are unremarkable except as noted in HPI & below Physical Exam Constitutional: well nourished; no acute distress Respiratory: no respiratory distress, no labored breathing and no retractions Auscultation: + diminished lung sounds (Bases bilateral); no rales, no rhonchi and no wheezes Cardiovascular: Rate/Rhythm: regular rate and regular rhythm Heart Sounds: normal S1 and normal S2; no murmur Vessels: radial pulses present; no JVD and no carotid bruit Extremities: + edema (trace BLLE) Gastrointestinal (Abdomen): Inspection/Auscultation: normal bowel sounds; + abdomen abnormal to inspection and abdomen not distended Percussion/Palpation: abdomen soft; abdomen nontender, no guarding and abdomen not rigid Neurologic: CN's II-XI intact bilaterally and moves all extremities; no focal motor deficits Psychiatric: A+Ox3, euthymic affect Results & Data Vital Signs (Past 12 Hours) Vital Signs Temp Pulse Pulse Resp BP Pulse Ox O2 Del Method 05/24/23 22:00 58 L 05/25/23 02:46 37.1 C 65 20 102/60 96 Nasal Cannula 05/24/23 22:55 36.6 C 55 L 18 106/62 97 BiPAP 05/24/23 22:08 61 24 95 05/24/23 19:47 Room Air 05/24/23 19:40 37.3 C 58 L 18 116/52 L 90 Room Air FiO2 05/24/23 22:00 05/25/23 02:46 05/24/23 22:55 05/24/23 22:08 30 05/24/23 19:47 05/24/23 19:40 Laboratory Results CBC 05/25/23 Range/Units 06:00 WBC 6.52 (4.8-10.8) K/ul RBC 4.28 L (4.70-6.10) M/uL Hgb 11.6 L (14.0-18.0) g/dl Hct 35.5 L (42.0-52.0) % Plt Count 123 L (130-400) K/uL Comprehensive Metabolic Panel 05/25/23 Range/Units 05:57 Sodium 139 (136-145) mmol/L Potassium 4.1 (3.5-5.1) mmol/L Chloride 96 L (98-107) mmol/L Carbon Dioxide 40 H (21-32) mmol/L BUN 22 (6-23) mg/dl Creatinine 1.02 (0.6-1.4) mg/dl Glucose 96 (70-99(Fasting)) mg/dl Calcium 8.2 L (8.6-10.3) mg/dl Intake and Output 05/24/23 05/25/23 05/25/23 22:59 06:59 14:59 Intake Total 420 / 1230 60 / 1230 Output Total 2100 / 2400 300 / 2400 Balance -1680 / -1170 -240 / -1170 Intake: Oral 420 / 1230 60 / 1230 Output: Urine Amount (Catheter) 2100 / 2400 300 / 2400 Byrne/Indwelling 2100 / 2400 300 / 2400 Other: Weight 91.2 kg
[2023-05-25] MEDS: SPIRONOLACTONE 25 MG TAB PO SCH (08:45)
[2023-05-25] MEDS: lisinopril 20 MG TAB PO SCH (08:45)
[2023-05-25] MEDS: FUROSEMIDE 40 MG/4 ML VIAL IV SCH ×2 (08:45→16:06)
[2023-05-25] MEDS: ENOXAPARIN INJ 40 MG/0.4 ML SYR SQ SCH (08:46)
[2023-05-25] MEDS ORDERED: POLYETHYLENE (MIRALAX) 17 GM PACK PO PRN (15:14)
--- NOTE | 2023-05-25 15:31 | Hospitalist Progress Note ---
Date of Service May 25, 2023 Assessment & Plan (1) Acute respiratory failure with hypoxia and hypercapnia: (2) Pulmonary edema: (3) Shortness of breath: (4) HTN (hypertension): (5) HLD (hyperlipidemia): (6) CML (chronic myelocytic leukemia): Plan: Patient is an 82 yr male with H/O CML on Bosulif, HTN, HLD, BPH, who has had swelling in his legs starting at least at the beginning of March. He has been followed by cardiology as an outpatient, and had a recent echocardiogram completed on 04/07/2023 for such. Presented with increased worsening shortness of breath and edema in legs. 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 No central pulmonary emboli identified. Cardiomegaly with volume overload manifested by pulmonary edema, moderate to large pleural effusions, anasarca and small volume of upper abdominal ascites. Consolidation with volume loss of the lower lobes suggestive of compressive atelectasis. Bilateral pleural calcifications. --ECHO: EF 55 to 60%. Mild concentric LVH. Mild tricuspid regurgitation. Estimated systolic pulmonary pressure 39 mmHg. Large left pleural effusion. No pericardial effusion. Normal IVC diameter with reduced respiratory variation suggesting a right atrial pressure of 8 mmHg --BNP elevated --Continue Fluid restriction Appreciate cardiology input Monitor I's and O's, daily weight Atenolol transition to metoprolol 12.5 mg daily Monitor volume status, electrolytes, renal function Continue IV Lasix 40 mg twice a day Added spironolactone Weaned off of supplemental oxygen May need to adjust dose of metoprolol given bradycardia Aldactone dose increased to 25 mg daily Likely transition to p.o. 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 Trending of BCRABL 1, P2 Y0 has been negative and has not showed any progression of disease Discussed with Dr. Christiano Navarrete on 05/21/2023: Can hold bosutinib for now. Recommends to follow-up with oncology on discharge DVT Px: Lovenox SQ CODE STATUS: Full code Admission and Anticipated Discharge Date Admission Date: May 20, 2023 Subjective Patient is seen and examined at bedside Reports constipation Denies any dyspnea Diuresing well Denies any chest pain, cough, dizziness, nausea, vomiting, abdominal pain Saturating low 90s on room air Review of Systems Review of Systems: All systems reviewed & are unremarkable except as noted in Subjective Physical Exam Physical Exam: Physical Exam: Vitals signs as noted above General Appearance:Moderately built and nourished, no apparent distress Head: normocephalic, Atraumatic Eyes: normal inspection, EOMI Neck: supple, Trachea midline Respiratory/Chest: Decreased breath sounds B/L bases, no accessory muscle use Cardiovascular: S1, S2, No murmur,+Bradycardia Abdomen/GI:Soft, Non tender, Bowel sounds present Extremities/Musculoskeletal:normal inspection, 2+ B/L LE edema Neurologic/Psych:AAOX3, grossly no focal neurological deficits Skin: normal color, warm Results & Data Results & Data Vital Signs (Past 12 Hours) Vital Signs Temp Pulse Pulse Resp BP BP Pulse Ox 05/25/23 12:06 36.8 C 50 L 18 111/48 L 92 05/25/23 09:11 62 05/25/23 09:00 05/25/23 08:02 37.0 C 45 L 18 123/62 97 05/25/23 07:40 Pulse Ox O2 Del Method O2 Del Method O2 Flow Rate O2 Flow Rate 05/25/23 12:06 Room Air 05/25/23 09:11 05/25/23 09:00 97 Nasal Cannula 2 05/25/23 08:02 Nasal Cannula 3 05/25/23 07:40 Nasal Cannula 2 Laboratory Results Short CBC 05/25/23 Range/Units 06:00 WBC 6.52 (4.8-10.8) K/ul Hgb 11.6 L (14.0-18.0) g/dl Hct 35.5 L (42.0-52.0) % Plt Count 123 L (130-400) K/uL BMP 05/25/23 05:57 Sodium 139 Potassium 4.1 Chloride 96 L Carbon Dioxide 40 H BUN 22 Creatinine 1.02 Glucose 96 Calcium 8.2 L
[2023-05-25] MEDS: DOCUSATE SODIUM 100 MG CAP PO SCH ×2 (15:36→19:58)
[2023-05-25] MEDS: ATORVASTATIN 20 MG TAB PO SCH (19:58)
[2023-05-25] MEDS: METOPROLOL SUCC 25MG EXT REL TAB PO SCH (19:58)
[2023-05-26 06:50] LABS: Hematocrit (blood only) 36.8 % (42.0-52.0); Hemoglobin 11.8 g/dl (14.0-18.0); Mean Corpuscular Hemoglobin 27.3 pg (25.0-34.0); Mean Corpuscular Hgb Conc 32.1 g/dL (32.0-36.0); Mean Platelet Volume 11.2 fL (9.4-12.4); Platelet Count 133 K/uL (130-400); RDW Coefficient of Variation 17.2 % (11.5-14.5); RDW Standard Deviation 52.9 fL (36.4-46.3); Red Blood Count 4.33 M/uL (4.70-6.10); White Blood Count 6.49 K/ul (4.8-10.8)
[2023-05-26 07:06] LABS: BUN Creatinine Ratio 22.2 (10-20); Calcium 8.4 mg/dl (8.6-10.3); Creatinine Clr Calc Pharmacy 59.9 ml/min; Est GFR (African American) 74.7 ml/min; Est GFR (Non-African American) 64.5 ml/min; Potassium 4.2 mmol/L (3.5-5.1)
--- NOTE | 2023-05-26 07:44 | Cardiology Progress Note ---
Date of Service May 26, 2023 Assessment & Plan (1) Acute heart failure with preserved ejection fraction: (2) Pleural effusion, bilateral: (3) Sinus bradycardia: Plan 82-year-old patient admitted with acute respiratory failure secondary to heart failure with preserved ejection fraction. 05/26/2023: Chronic HFpEF: Euvolemic on exam. Discontinue IV Lasix Start oral Lasix 40 mg daily Continue spironolactone 25 mg daily BMP in 1 week following discharge. Bradycardia and PVCs noted on telemetry- patient asymptomatic. Continue metoprolol succinate 12.5 mg daily as ordered. HTN: Continue Lisinopril 20 mg daily. 05/25/2023: Ongoing diuresis with IV Lasix- patient approaching euvolemia. Continue IV Lasix 40 mg BID today, will consider transitioning to oral tomorrow am. Continue increased dose of spironolactone 25 mg daily. Bradycardia and PVCs noted on telemetry- patient asymptomatic. Continue metoprolol succinate as ordered. 05/24/2023: Ongoing diuresis with IV Lasix, putting out about 1-2L/day. BP and electrolytes stable. -Continue IV Lasix 40 mg twice daily. -Increase spironolactone to 25 mg daily. -BMP in the am. Potassium goal of 4.0 and mag goal of 2.0, replace as indicated. Bradycardia and PVCs noted on telemetry- patient asymptomatic. Continue metoprolol succinate as ordered. 05/23/2023: Continued improvement in respiratory status and diuresis. Would continue IV diuretics. We will add spironolactone 12.5 mg daily 05/22/2023: Acute respiratory failure improving, renal function tolerating diuresis Patient responding to IV diuretics would continue Change atenolol to metoprolol succinate, CHF indicated beta-tony Repeat chest x-ray a.m. Case discussed with Dr. Fay. No further recommendations from a cardiology standpoint. Will arrange for follow up as an outpatient in our clinic in 4 weeks. Admission and Anticipated Discharge Date Admission Date: May 20, 2023 Supervising Physician Co-Signing Physician Notes Patient seen and personally examined. Continues to manifest improvement with medication switched to oral today Additional adjustments to beta-tony as above change to metoprolol succinate 12 and half milligrams daily No further intervention directed Subjective Patient seen and examined, chart, medications, telemetry reviewed. 05/26: Upon entrance to the room patient resting comfortably in the chair. No acute co ncerns. No chest pain, dyspnea improving. Now on room air. Eager for discharge Tele: SR/SB with PVCs in a bigeminy pattern, rates 50s I&O: -12L (~1.4L over last 24 hrs) Weight: 96 kg >>91.1 kg (05/26) Labs: BMP and K level stable. 05/25: Patient approaching euvolemia. IV Lasix held after evening dose. 05/24: Ongoing diuresis with IV Lasix- improvement in respiratory status. Spironolactone increased to 25 mg daily 05/23: Ongoing diuresis with IV Lasix- CXR improving. Spironolactone 12.5 mg daily started. 05/22: Continued IV diursis Atenolol transitioned to metoprolol succinate Review of Systems Review of Systems: All systems reviewed & are unremarkable except as noted in HPI & below Physical Exam Constitutional: well nourished; no acute distress Respiratory: no respiratory distress, no labored breathing and no retractions Auscultation: + diminished lung sounds (Bases bilateral); no rales, no rhonchi and no wheezes Cardiovascular: Rate/Rhythm: regular rate and regular rhythm Heart Sounds: normal S1 and normal S2; no murmur Vessels: radial pulses present; no JVD and no carotid bruit Extremities: + edema (trace BLLE) Gastrointestinal (Abdomen): Inspection/Auscultation: normal bowel sounds; + abdomen abnormal to inspection and abdomen not distended Percussion/Palpation: abdomen soft; abdomen nontender, no guarding and abdomen not rigid Neurologic: CN's II-XI intact bilaterally and moves all extremities; no focal motor deficits Psychiatric: A+Ox3, euthymic affect Results & Data Vital Signs (Past 12 Hours) Vital Signs Temp Pulse Pulse Resp BP Pulse Ox O2 Del Method 05/26/23 07:09 37.0 C 51 L 19 155/73 H 98 Room Air 05/26/23 02:35 36.8 C 50 L 18 127/62 97 Nasal Cannula 05/25/23 22:00 52 L 05/25/23 22:56 23 97 05/25/23 22:36 37.1 C 53 L 18 142/72 H 92 Nasal Cannula 05/25/23 20:09 Room Air FiO2 08/30/23 07:09 05/26/23 02:35 05/25/23 22:00 05/25/23 22:56 30 05/25/23 22:36 05/25/23 20:09
[2023-05-26] MEDS: DOCUSATE SODIUM 100 MG CAP PO SCH (08:29)
[2023-05-26] MEDS: lisinopril 20 MG TAB PO SCH (08:30)
[2023-05-26] MEDS: SPIRONOLACTONE 25 MG TAB PO SCH (08:30)
[2023-05-26] MEDS: ENOXAPARIN INJ 40 MG/0.4 ML SYR SQ SCH (08:30)
[2023-05-26] MEDS ORDERED: FUROSEMIDE 40 MG TAB PO SCH (10:00)
[2023-05-26] MEDS ORDERED: FUROSEMIDE 40 MG TAB PO ONE (12:00)
--- NOTE | 2023-05-26 14:54 | Discharge Summary ---
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 He has been followed by cardiology as an outpatient, and had a recent echocardiogram completed on 04/07/2023 for such. Pt 's nurse, Louann, is present with him at bedside. She cares for the patients who has dementia 4d per week in their home. Pt started developing noticeable worsening breathing on Wednesday with ambulation when she was there with him, at that time asked for CXR from pcp. This was not done as an outpatient to her knowledge. she did not see him on Wednesday. Today when she saw him he was 78 % on RA and does not wear supplemental O2. He was significantly short of breath at rest, with increased respiratory rate. She notices swelling in his legs worsening today compared to previously, but that lower extremity edema has been ongoing since beginning of the summer. His PCP reduced amlodipine to 2.5 mg in beginning of March, however the patient has not reduce this medication per her report. Today he is confused, unable to answer the name of the nurse who is present at bedside, opens his eyes when asked to, but otherwise does not follow commands. She states this is not at all his baseline. Patient did take his morning amlodipine and lisinopril this morning and is due to take atenolol this evening. He takes possible if in the evenings, and has been on this since at least September 2020 per medication review in [facility]. Pt was recently away on a 10 day fishing trip to [place], and returned about 10 days ago well. Nurse reports that he ambulates without assistance at home, does not wear supplemental O2, no recent falls, eats and drinks well, no complaints recently with bowel or bladder habits. Social history: Patient is a former smoker, Smoked many years ago and stopped when he was 52 years ago. no alcohol use. Admission Exam Per Admitting Provider General: awakens briefly to verbal stimuli, lethargic, confused, no apparent distress on bipap Head: Normocephalic, atraumatic ENT: PERRL, EOMI, pharynx not examined due to BiPAP, mucous membranes appear moist, Chest: + Crackles throughout in upper chanel, diminished breath sounds at bases bilaterally, on BiPAP Cardiac: Regular rate and rhythm with few PVCs, + TANNER, +JVD, normal peripheral pulses, good capillary refill Abdominal: NABS x 4 quadrants, soft, nondistended, nontender to palpation, no rebound or guarding Extremities: 2+ pitting peripheral edema up to hips bilaterally, no erythema, + left avalos region with healing abrasion, calfs nontender to palpation Psych: Normal mood and affect Neuro: Awakens to verbal stimuli, confused, cannot name nurse at bedside, knows he is in the hospital and states the year is 2022. Principal Dx & Hospital Course #1 = Principal Diagnosis (1) Acute respiratory failure with hypoxia and hypercapnia: (2) Pulmonary edema: (3) Shortness of breath: (4) HTN (hypertension): (5) HLD (hyperlipidemia): (6) CML (chronic myelocytic leukemia): Mr. Skinner is an 82 yr male with H/O CML on Bosulif, HTN, HLD, BPH, who experienced progressive leg edema since 03/2023. He has been followed by cardiology as an outpatient, and had a recent echocardiogram completed on 04/07/2023 for such. Patient was admitted on 05/20/2023 due to concern for acute heart failure exacerbation as supported by CTA imaging with edema as well as BNP of 878. #Acute respiratory failure with hypoxia and hypercarbia * resolved #Acute heart failure with preserved ejection fraction #Bilateral pleural effusion/pulmonary edema Thought to be related to Bosutinib as patient has no known history of COPD, asthma, obstructive sleep apnea --CTA:Limited study secondary to respiratory motion artifact. No central pulmonary emboli identified. Cardiomegaly with volume overload manifested by pulmonary edema, moderate to large pleural effusions, anasarca and small volume of upper abdominal ascites. Consolidation with volume loss of the lower lobes suggestive of compressive atelectasis. Bilateral pleural calcifications. --ECHO: EF 55 to 60%. Mild concentric LVH. Mild tricuspid regurgitation. Estimated systolic pulmonary pressure 39 mmHg. Large left pleural effusion. No pericardial effusion. Normal IVC diameter with reduced respiratory variation suggesting a right atrial pressure of 8 mmHg Appreciate cardiology input Atenolol transition to metoprolol 12.5 mg daily Transition to PO Lasix 40mg daily with plans to follow up for BMP as OP Started spironolactone, uptitrated to 25mg daily Weaned off of supplemental oxygen Plan for follow-up with cardiology and Oncology upon discharge #Acute metabolic encephalopathy *resolved Likely secondary to above heart failure exacerbation At baseline upon discharge #Sinus bradycardia *stable PVCs on monitor, averaging 50-60s- asymptomatic #Constipation Improved* Started on bowel regimen #Mild elevation of troponin resolved* Likely secondary to demand ischemia due to CHF, hypoxia #HTN Continue lisinopril, metoprolol Resume amlodipine as able on outpatient basis Monitor #HLD Continue Lipitor #CML, 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 Trending of BCRABL 1, P2 Y0 has been negative and has not showed any progression of disease Discussed with Dr. Christiano Navarrete on 05/21/2023: Can hold bosutinib for now. Re commends to follow-up with oncology on discharge Discharge home Discharge Exam Physical Exam: Vitals signs as noted above General Appearance:Moderately built and nourished, no apparent distress Head: normocephalic, Atraumatic Eyes: normal inspection, EOMI Neck: supple, Trachea midline Respiratory/Chest: clear breath sound, slight bibasilar crackles , no accessory muscle use Cardiovascular: S1, S2, No murmur,+Bradycardia Abdomen/GI:Soft, Non tender, Bowel sounds present Extremities/Musculoskeletal:normal inspection, 1+ B/L LE edema Neurologic/Psych:AAOX3, grossly no focal neurological deficits Skin: normal color, warm Updated Medication List Medication Instructions Recorded Confirmed Type coenzyme Q10 75 mg capsule 75 mg PO DAILY #0 caps 11/22/14 05/20/23 History bosutinib 400 mg tablet (Bosulif) 400 mg PO HS 05/20/23 05/20/23 History atorvastatin 20 mg tablet (Lipitor) 20 mg PO HS #30 tabs 05/26/23 05/20/23 Rx furosemide 40 mg tablet 40 mg PO QAM #30 tabs 05/26/23 Rx lisinopril 20 mg tablet 20 mg PO QAM #30 tabs 05/26/23 05/20/23 Rx metoprolol succinate 25 mg 12.5 mg PO QPM #30 tabs 05/26/23 Rx tablet,extended release 24 hr polyethylene glycol 3350 17 gram 17 g PO DAILY PRN constipation #30 05/26/23 Rx oral powder packet (Miralax) ea spironolactone 25 mg tablet 25 mg PO DAILY #30 tabs 05/26/23 Rx Hospital Stay Data Consultations 05/20/23 14:36 ED Decision to Admit Stat 05/20/23 16:04 Consult Cardiology Routine Diagnostic Imagining Performed 05/20/23 11:22 CT for pulmonary embolism PE [CT angio chest PE protocol] Stat Pending Results Patient Have Any Pending Studies at Discharge: No Discharge Instructions Given to Patient (Per Discharging Provider) You were treated for an acute heart failure exacerbation, which can result in sy mptoms like leg swelling and shortness of breath. We started you on Furosemide (Lasix) 40mg daily, which will help keep fluid from accumulating. We also discontinued your Atenolol and transitioned to Metoprolol succinate 12.5mg at bedtime. Please be sure to discontinue amlodipine. This medication may be resumed in the future, but for now your current medication is managing your blood pressure. Please be sure to weight yourself daily. If you notice a 2lb weight gain, please take an additional lasix (waterpill) and call your PCP. If your weight increased by greater than 5lb, please contact your PCP and discuss if you need to go to the ED. You will need to follow up with the [facility], as well as your PCP. You will need blood work in 1 week from your PCP to monitor your kidneys and electrolytes. Regarding your CML, please hold bosutinib for now and follow up oncology. Total Time Total Time Spent Total Time Spent (In Minutes): I have personally spent 45 minutes total time today in preparation, patient care, and documentation for this discharge, including the following: independently reviewing and interpreting medical tests/procedures/services, performing med reconciliation,counseling and educating the patient, documenting clinical information, and performing medically appropriate medical examination
[2023-05-27] MEDS ORDERED: FUROSEMIDE 40 MG TAB PO SCH (09:00)
== END 2023-05-26 14:00 | disposition home health service (06) | DRG 291 ==
LOC: ED 11:02 → SUATTDRO 15:10 → 4W 15:10

== ENCOUNTER 2025-08-15 12:59 | Inpatient (IN) ==
[2025-08-15] MEDS: SODIUM CHLORIDE 0.9% 500 ML IV ONE ×2 (13:34→16:14)
[2025-08-15] MEDS: ACETAMINOPHEN 1,000 MG/100 ML VIAL IV STA (13:34)
[2025-08-15 13:37] LABS: Hematocrit (blood only) 28.5 % (42.0-52.0); Hemoglobin 9.6 g/dL (14.0-18.0); Immature Granulocytes # (auto) 0.09 K/uL (0.01-0.20); Immature Granulocytes % (auto) 0.4 %; Mean Corpuscular Hemoglobin 28.9 pg (25.0-34.0); Mean Corpuscular Volume 85.8 fL (80.0-100.0); Platelet Count 175 K/uL (130-400); RDW Standard Deviation 49.1 fL (36.4-46.3); Red Blood Count 3.32 M/uL (4.70-6.10); White Blood Count 21.46 K/ul (4.8-10.8)
--- NOTE | 2025-08-15 13:39 | Emergency Department Note ---
Impression & Plan Fracture of femur, left, closed, Fall, Anemia ED Provider Note NAME: JACK BANEGAS AGE: 84 SEX: M : 1940 ARRIVES VIA: Ambulance INFORMANT: Patient, ED PROVIDER(S): Vinicius Arteaga MD CHIEF COMPLAINT: Fall, hip pain MEDICAL DECISION MAKING: Patient presents due to concern for ground-level fall. IV was established and blood work was obtained. The patient did have a hip and pelvis x-ray. Patient did have a slightly lower blood pressure but was asymptomatic. Patient was ordered 500 of IV fluids. The patient does have an intertrochanteric fracture of the left hip. The patient does have a white count of 21. This may be reactive from the fall the patient denies any infectious symptoms. Patient's hemoglobin of 9.6. 2 years ago it was 11.8. Platelet count is unremarkable. Kidney function unremarkable. That has been with the on-call hospitalist as well as orthopedist and the patient was admitted to the medicine service. And his family who are comfortable plan of care. Discussion w/ other healthcare providers: Dr. Burciaga orthopedics Sivan Faulkner PA-C and Dr. Harper inpatient medicine service Prior /Outside records reviewed: None Differential diagnosis: Fracture, sprain, strain, subluxation, dislocation, contusion, ligamentous injury, neurovascular, as well as other etiologies were considered. Diagnostics, as interpreted by me: ECG: Normal sinus rhythm, rate of 67, normal intervals, normal axis no ST elevations. Cardiac monitoring: An order was placed for continuous cardiac monitoring. The monitor shows a rate of 69 with sinus rhythm. Patient was placed on pulse oximetry Medical decision rules: None Imaging studies: I informally interpreted the patient's left hip x-ray does show intertrochanteric fracture with formal report to follow. HPI: Patient presents due to concern for fall and hip and knee pain. The patient reports that he tripped falling onto his left hip. The patient states that he did try to get up but he was unable to do so. He states that this occurred around 8 this morning. His son-in-law came over with somebody else and they were able to help him up. He denies any chest pain or shortness of breath no head strike or LOC. He does not take any blood thinning medications. PAST MEDICAL HISTORY: See Below PAST SURGICAL HISTORY: See Below SOCIAL HISTORY: See Below HOME MEDICATIONS: See Below ALLERGIES: See Below VITALS: See Below PHYSICAL EXAMINATION: GENERAL: NAD, non-toxic. Wearing glasses. EYE EXAM: Normal conjunctiva. PERRL, no anisocoria and EOM's grossly intact w/o pain. OROPHARYNX: Moist mucus membranes, poor dentition. NECK: Trachea midline, no stridor. LUNGS: Clear to auscultation. Normal chest wall mechanics. HEART: NSR, no MRG. ABDOMEN: Abdomen soft, non-tender, no masses, no rebound or guarding. BACK: No CVA TTP. SKIN: No rashes and no bruising. UPPER EXTREMITIES: Upper extremities are grossly normal. LOWER EXTREMITIES: No obvious likely discrepancy but with pain to palpation over the left hip and mid femur. Mild pain to palpation to the left knee but no obvious deformity. Neurovascular intact distally to SP, DP and tibialis nerves in the left foot. Sensation normal with good pedal pulse. NEURO EXAM: Awake and alert, follows commands, no obvious facial asymmetry, normal speech, moves all 4 extremities. Past Med/Surg History Problem List (Updated 08/15/25 @ 17:44 by Vinicius Arteaga MD) Anemia (Acute) Chronic heart failure with preserved ejection fraction (HFpEF) Acute on chronic anemia Fall (Acute) Fracture of femur, left, closed (Acute) Sinus bradycardia Pleural effusion, bilateral Acute heart failure with preserved ejection fraction HLD (hyperlipidemia) CML (chronic myelocytic leukemia) HTN (hypertension) Medical History CKD (chronic kidney disease), stage III Acute respiratory failure with hypoxia and hypercapnia Non-ST elevation [place] (NSTEMI) Pulmonary edema Shortness of breath Surgical History Hx of colonoscopy Hx of repair of rotator cuff History of carpal tunnel surgery Family History Other Family history non-contributory Social History Smoking Status: Former smoker Hx Alcohol Use: No Hx Substance Use: No Preferred Language: Mohawk Communication Ability: Effective Beliefs That Will Affect Care: None Current Living Situation: Spouse Feels Safe at Home: Yes Assistive Devices: None Allergies Allergies Allergy/AdvReac Type Severity Reaction Status Date / Time bee venom protein (honey bee) Allergy Unknown Verified 08/15/25 15:31 hydrochlorothiazide AdvReac Severe caused LADONNA Verified 08/15/25 15:31 ivory soap Allergy Rash Uncoded 08/15/25 15:31 Home Meds Home Medications Medication Instructions Recorded Confirmed coenzyme Q10 75 mg capsule 75 mg PO QAM #0 caps 11/22/14 08/15/25 bosutinib 400 mg tablet (Bosulif) 400 mg PO DAILY 05/20/23 08/15/25 furosemide 40 mg tablet 20 mg PO QAM PRN Fluid Retention 08/15/25 08/15/25 loperamide 2 mg tablet (Imodium 2 mg PO DAILY PRN Diarrhea 08/15/25 08/15/25 A-D) vitamins A,C,P-hybv-houmga 2,148 1 tab PO DAILY 08/15/25 08/15/25 mcg-113 mg-45 mg-17.4 mg tablet (PreserVision AREDS) Previous Rx's Medication Instructions Recorded atorvastatin 20 mg tablet (Lipitor) 20 mg PO HS #30 tabs 05/26/23 Results & Data (ED) Vital Signs Vital Signs - 24 hr 08/15/25 13:08 08/15/25 13:11 08/15/25 13:20 Pulse Rate 76 66 Pulse Rate from SpO2 Sensor Respiratory Rate 24 Blood Pressure 88/53 L Blood Pressure [Left Arm] 112/61 Blood Pressure Mean 64 Blood Pressure Mean [Left Arm] 78 Pulse Oximetry 99 Oxygen Delivery Method Sepsis Recent Fever Within 48 Hours No Sepsis New/Unexplained Change in Mental Status No Sepsis Action Taken by Nursing No Action Required 08/15/25 13:21 08/15/25 13:30 Pulse Rate 67 64 Pulse Rate from SpO2 Sensor 67 65 Respiratory Rate 25 H 19 Blood Pressure 102/59 L 115/80 Blood Pressure [Left Arm] Blood Pressure Mean 73 91 Blood Pressure Mean [Left Arm] Pulse Oximetry 100 100 Oxygen Delivery Method Room Air Room Air Sepsis Recent Fever Within 48 Hours Sepsis New/Unexplained Change in Mental Status Sepsis Action Taken by Halfway Medications Current Medication List: was personally reviewed by me Laboratory Data Attestation: I reviewed the patient's lab results. 08/15/25 13:20 08/15/25 13:20 Lab Results 08/15/25 Range/Units 13:20 WBC 21.46 H (4.8-10.8) K/ul RBC 3.32 L (4.70-6.10) M/uL Hgb 9.6 L (14.0-18.0) g/dL Hct 28.5 L (42.0-52.0) % MCV 85.8 (80.0-100.0) fL MCH 28.9 (25.0-34.0) pg MCHC 33.7 (32.0-36.0) g/dL RDW Std Deviation 49.1 H (36.4-46.3) fL RDW Coeff of Ebony 15.6 H (11.5-14.5) % Plt Count 175 (130-400) K/uL MPV 10.8 (9.4-12.4) fL Immature Gran % (Auto) 0.4 % Neut % (Auto) 84.5 % Lymph % (Auto) 9.3 % [place] % (Auto) 5.6 % Eos % (Auto) 0.0 % Baso % (Auto) 0.2 % Neut # (Auto) 18.10 H (1.40-6.50) K/uL Lymph # (Auto) 2.00 (1.20-3.40) K/uL [place] # (Auto) 1.21 H (0.11-0.59) K/uL Eos # (Auto) 0.01 (0.00-0.50) K/uL Baso # (Auto) 0.05 (0.00-0.20) K/uL Immature Gran # (Auto) 0.09 (0.01-0.20) K/uL PT 11.1 (9.0-12.0) Seconds INR 1.1 (0.9-1.1) APTT 24 (21-31) Seconds PTT Ratio 0.9 Sodium 138 (136-145) mmol/L Potassium 4.5 (3.5-5.1) mmol/L Chloride 104 (98-107) mmol/L Carbon Dioxide 25 (21-32) mmol/L Anion Gap 9 (3-11) BUN 21 (6-23) mg/dl Creatinine 1.33 (0.6-1.4) mg/dl Est Cr Clr Drug Dosing 47.0 ml/min eGFR 53.37 BUN/Creatinine Ratio 15.8 (10-20) Glucose 129 H (70-99(Fasting)) mg/dl Calcium 8.7 (8.6-10.3) mg/dl Iron 45 (35-175) mcg/dl Transferrin 233 (200-360) mg/dl Ferritin 25.0 (8-388) ng/ml Total Bilirubin 0.7 (0.2-1.0) mg/dl AST 22 (13-39) U/L ALT 13 (7-52) U/L Alkaline Phosphatase 105 H (34-104) U/L Total Protein 6.5 (6.0-8.3) gm/dl Albumin 3.6 (3.4-5.0) gm/dl Globulin 2.9 (2.5-4.0) gm/dl Albumin/Globulin Ratio 1.2 (0.9-2) Administered Medications Discontinued Medications Acetaminophen (Ofirmev) 1,000 mg in 100 mls @ 400 mls/hr IV NOW STA Stop: 08/15/25 13:33 Last Infusion: 08/15/25 15:00 Dose: Infused Documented By: mbu Admin: 08/15/25 13:34 Dose: 400 mls/hr Documented By: mbu Sodium Chloride (Nss) 500 mls @ 999 mls/hr IV .Q31M ONE Stop: 08/15/25 13:52 Last Infusion: 08/15/25 15:00 Dose: Infused Documented By: mbu Admin: 08/15/25 13:34 Dose: 999 mls/hr Documented By: mbu Sodium Chloride (Nss) 500 mls @ 999 mls/hr IV .Q31M ONE Stop: 08/15/25 16:29 Last Infusion: 08/15/25 16:46 Dose: Infused Documented By: mbu Admin: 08/15/25 16:14 Dose: 999 mls/hr Documented By: [facility]IA Imaging Data Radiologist's Impression: Femur X-Ray 08/15/25 13:19 XR femur LT 2V routine CLINICAL HISTORY: pain post fall COMPARISON: None FINDINGS: There is an acute mildly displaced mildly comminuted intertrochanteric fracture proximal left femur. There is blanket artifact at the distal femur. No other fracture or dislocation seen of the left femur. 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 IMPRESSION: Acute fracture proximal left femur. ACT 112: Negative or not required by law. Electronically signed by: Liang Beverly M.D. 08/15/2025 3:03 PM Hip/Pelvis X-Ray 08/15/25 13:19 XR hip LT 2V w pelvis CLINICAL HISTORY: pain post fall COMPARISON: None FINDINGS: There is an acute mildly comminuted mildly displaced intertrochanteric fracture proximal left femur. There is a fracture at the proximal right femur/right greater trochanter of uncertain chronicity. No dislocation seen at the hips. No pelvic fracture seen. There are severe degenerative changes at the left hip. IMPRESSION: 1. Acute fracture proximal left femur. 2. Fracture of uncertain chronicity proximal right femur/right greater trochanter. ACT 112: Negative or not required by law. Electronically signed by: Liang Beverly M.D. 08/15/2025 3:02 PM Knee X-Ray 08/15/25 13:19 XR knee LT 1 or 2V routine CLINICAL HISTORY: pain post fall COMPARISON: None FINDINGS: There is overlying skin fold and blanket artifact. There is severe osteoarthritis. No acute fracture or dislocation seen at the left knee. IMPRESSION: No fracture seen at the left knee. ACT 112: Negative or not required by law. Electronically signed by: Liang Beverly M.D. 08/15/2025 3:04 PM Chest X-Ray 08/15/25 15:26 EXAM: Portable AP chest radiograph TECHNIQUE: AP portable radiograph of the chest was obtained. INDICATION: Shortness of breath Comparison: Chest radiograph May 24, 2023 FINDINGS: LINES and TUBES: None CARDIOVASCULAR: Cardiac silhouette is stably mildly enlarged in size. LUNGS/PLEURA: No focal consolidation identified. Chronic interstitial lung changes. No significant pleural fluid. No discernible pneumothorax. OSSEOUS/OTHER: No displaced acute osseous process identified. Unchanged elevation of the left hemidiaphragm. IMPRESSION: No radiographic evidence of acute cardiopulmonary or osseous Electronically signed by Byron Juan 08-15-2025 4:[address] 08/15/25 15:45 CT PELVIS WITHOUT CONTRAST: TECHNIQUE: Un-enhanced CT examination of the pelvis was performed. IV CONTRAST: None HISTORY: Trauma COMPARISON: Pertinent radiographs from earlier in the same day are not viewable in our system. FINDINGS: OSSEOUS STRUCTURES: Acute traumatic and comminuted intertrochanteric fractures of the left femur with impaction and varus angulation. Surrounding intramuscular hematomas. Multiple corticated osseous bodies are noted by the right femoral trochanters likely representing sequela of chronic injuries and dystrophic/heterotopic ossifications Grade 1 anterolisthesis of L5 on S1 with associated chronic pars defects URINARY BLADDER: Unremarkable REPRODUCTIVE ORGANS: Unremarkable AORTA and ILIAC ARTERIES: No aneurysmal dilatation of the visualized portion of the aorta or iliac arteries seen. LYMPH NODES: No pelvic lymph adenopathy identified. GASTROINTESTINAL: The visualized bowel is normal in caliber. PERITONEUM: No ascites is seen. No peritoneal masses seen. PELVIC WALL: No hernia is identified IMPRESSION: Acute traumatic and comminuted intertrochanteric fractures of the LEFT femur with impaction and varus angulation. Surrounding intramuscular hematomas. Multiple corticated osseous bodies are noted by the RIGHT femoral trochanters likely representing sequela of chronic injuries and dystrophic/heterotopic ossificationsThis is Electronically signed by Byron Juan 08-15-2025 5:37 PM Discharge Plan Visit Data Chief Complaint: Fall Stated Complaint: fall ED Provider: Vinicius Arteaga Discharge Problem: Fracture of femur, left, closed, Fall, Anemia Patient Disposition: Admitted As Inpatient Condition: Good Forms Stand Alone Forms: [facility] [employer] Prescriptions Prescriptions: No Action coenzyme Q10 75 mg Capsule 75 mg PO QAM Qty: 0 Patient Comments: UNSURE OF DOSAGE Bosulif 400 mg Tablet 400 mg PO DAILY Hold Instructions: Resume on 06/30/23. Resume when directed by Oncologist Rx Instructions: must administer with a meal/food atorvastatin [Lipitor] 20 mg Tablet 20 mg PO HS Qty: 30 0RF furosemide 40 mg tablet 20 mg PO QAM PRN (Reason: Fluid Retention) PreserVision AREDS 2,148 mcg-113 mg-45 mg-17.4mg Tablet 1 tab PO DAILY loperamide [Imodium A-D] 2 mg Tablet 2 mg PO DAILY PRN (Reason: Diarrhea) Referrals Referrals: Nimco Machado MD [Primary Care Provider] - Discharge Problem: Fracture of femur, left, closed Qualifiers: Encounter type: initial encounter Femur location: unspecified portion of femur Fracture morphology: unspecified fracture morphology Qualified Code(s): S72.92XA - Unspecified fracture of left femur, initial encounter for closed fracture Fall Qualifiers: Encounter type: initial encounter Qualified Code(s): W19.XXXA - Unspecified fall, initial encounter Anemia Qualifiers: Anemia type: unspecified type Qualified Code(s): D64.9 - Anemia, unspecified
[2025-08-15 13:52] LABS: Alanine Aminotransferase 13.0 U/L (7-52); Albumin Globulin Ratio 1.2 (0.9-2); Albumin Level 3.6 gm/dl (3.4-5.0); Alkaline Phosphatase 105.0 U/L (34-104); Anion Gap 9.0 (3-11); Bilirubin,Total 0.7 mg/dl (0.2-1.0); Blood Urea Nitrogen 21.0 mg/dl (6-23); Calcium 8.7 mg/dl (8.6-10.3); Carbon Dioxide 25.0 mmol/L (21-32); Chloride 104.0 mmol/L (98-107); Creatinine Clr Calc Pharmacy 47.0 ml/min; Globulin 2.9 gm/dl (2.5-4.0); Glucose 129.0 mg/dl (70-99(Fasting)); Potassium 4.5 mmol/L (3.5-5.1); Sodium 138.0 mmol/L (136-145); Total Protein 6.5 gm/dl (6.0-8.3)
[2025-08-15 14:02] LABS: INR 1.1 (0.9-1.1); Partial Thromboplastin Time 24 Seconds (21-31); Prothrombin Time 11.1 Seconds (9.0-12.0)
--- NOTE | 2025-08-15 15:03 | XRay Report ---
XR hip LT 2V w pelvis CLINICAL HISTORY: pain post fall COMPARISON: None FINDINGS: There is an acute mildly comminuted mildly displaced intertrochanteric fracture proximal l eft femur. There is a fracture at the proximal right femur/right greater trochanter of uncertain media reconciliation specialist nicity. No dislocation seen at the hips. No pelvic fracture seen. There are severe degenerative dawn es at the left hip. IMPRESSION: 1. Acute fracture proximal left femur. 2. Fracture of uncertain chronicity proximal right femur/right greater trochanter. ACT 112: Negative or not required by law. Electronically signed by: Liang Beverly M.D. 08/15/2025 3:02 PM
--- NOTE | 2025-08-15 15:04 | XRay Report ---
XR femur LT 2V routine CLINICAL HISTORY: pain post fall COMPARISON: None FINDINGS: There is an acute mildly displaced mildly comminuted intertrochanteric fracture proximal l eft femur. There is blanket artifact at the distal femur. No other fracture or dislocation seen of th e left femur. 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 IMPRESSION: Acute fracture proximal left femur. ACT 112: Negative or not required by law. Electronically signed by: Liang Beverly M.D. 08/15/2025 3:03 PM
--- NOTE | 2025-08-15 15:05 | XRay Report ---
XR knee LT 1 or 2V routine CLINICAL HISTORY: pain post fall COMPARISON: None FINDINGS: There is overlying skin fold and blanket artifact. There is severe osteoarthritis. No acut e fracture or dislocation seen at the left knee. IMPRESSION: No fracture seen at the left knee. ACT 112: Negative or not required by law. Electronically signed by: Liang Beverly M.D. 08/15/2025 3:04 PM
--- NOTE | 2025-08-15 15:20 | History & Physical Report ---
Date of Service August 15, 2025 Assessment & Plan (1) Fracture of femur, left, closed: (2) Fall: Plan: Patient is 84 year old male with PMH CML, HTN, dyslipidemia, HFpEF, CKD III, BPH presented to ER with c/o mechanical fall and left hip pain today. Left femur x-ray: Acute fracture proximal left femur Hip/pelvis x-ray: Acute fracture proximal left femur. Fracture of uncertain chronicity proximal right femur/right greater trochanter Left knee x-ray: No fracture seen CXR: No acute cardiopulmonary findings CT pelvis pending In ER given 500ml NSS, IV Tylenol Pain control with scheduled Tylenol, oxycodone, morphine as needed moderate- severe pain Bedrest Ortho consult. Discussed with Dr Burciaga who ordered CT pelvis which is pending and would plan for procedure tomorrow CBC, BMP in am (3) CKD (chronic kidney disease), stage III: Plan: Cr: 1.3. Baseline Cr: 1.1-1.2 Monitor renal functions, avoid nephrotoxic agents when possible (4) CML (chronic myelocytic leukemia): (5) Acute on chronic anemia: Plan: On Bosulif daily WBC: 21. (Baseline WBC in 11's.) H/H: 9.6/28. (Baseline Hgb: 11-12's. 11.5 on 04/05/25) Anemia panel pending Denies bleeding, melena, hematochezia Monitor H&H Follows with [facility] hematology (6) HTN (hypertension): Plan: BPs soft in ER and responded to IVF Patient asymptomatic Previously patient was on lisinopril 20 mg daily, metoprolol succinate 25 mg daily, spironolactone 25 mg daily. Patient was unsure if he was taking these. I called his [facility] and these medications have not been filled since 2022 and 2023 Monitor off medications (7) HLD (hyperlipidemia): Plan: Continue atorvastatin (8) Chronic heart failure with preserved ejection fraction (HFpEF): Plan: 05/20/2023 echo: EF: 55-60%, mild concentric LVH, mild aortic valve sclerosis without significant stenosis, mild tricuspid regurgitation, estimated systolic pulmonary pressure 39 mmHg, large left pleural effusion, no pericardial effusion Takes lasix intermittently, pt reports takes every couple of months for BLE edema Appears euvolemic to slightly dry today Not followed with cardiology for couple of years DVT Prophylaxis SCDs Admit med surg DNR/DNI as per discussion with pt Follows with Dr Machado for routine care Pt was seen and care coordinated with Dr Harper. See addendum I spent a total of 70 minutes reviewing notes, outpatient records, labs, medication, coordinating, documenting and providing care for this patient excluding time spent in the performance of separately billed services and excluding time spent by another provider/QHP. History of Present Illness Chief Complaint: Fall Primary Care Provider: Nimco Machado MD Patient is 84 year old male with PMH CML, HTN, dyslipidemia, HFpEF, CKD III, BPH presented to ER with c/o fall and left hip pain today. Patient states he was gathering his garbage when he slipped on floor falling onto left side. Reports instant pain to left hip. He was able to sit up however unable to get himself up off the floor. He reports his son-in-law came approximately 30 minutes later and with the assistance of his daughter they were able to get him up however he was unable to bear weight. Denies any dizziness, SOB or chest pain prior to fall. Denies hitting head, LOC. Patient reports prior history of right knee pain requiring injections in past however denies any right hip pain. Reports chronic loose stools from his Bosulif and he takes Imodium approximately once a week. States takes Lasix very rarely for BLE edema. Denies fever/chills, diaphoresis, N/V/C, VALDIVIA, dizziness, syncope, vision changes, neck pain, CP, SOB, palpitations, cough, sore throat, otalgia, rhinorrhea, abdominal pain, paresthesias, weakness, rashes, urinary symptoms. Discussed with ER physician, patient with mechanical fall and left femur fracture and ortho has been notified. Allergies Allergy/AdvReac Type Severity Reaction Status Date / Time bee venom protein (honey bee) Allergy Unknown Verified 08/15/25 15:31 hydrochlorothiazide AdvReac Severe caused LADONNA Verified 08/15/25 15:31 ivory soap Allergy Rash Uncoded 08/15/25 15:31 Home Medications Medication Instructions Recorded Confirmed Type coenzyme Q10 75 mg capsule 75 mg PO QAM #0 caps 11/22/14 08/15/25 History bosutinib 400 mg tablet (Bosulif) 400 mg PO DAILY 05/20/23 08/15/25 History atorvastatin 20 mg tablet (Lipitor) 20 mg PO HS #30 tabs 05/26/23 08/15/25 Rx furosemide 40 mg tablet 20 mg PO QAM PRN Fluid Retention 08/15/25 08/15/25 History loperamide 2 mg tablet (Imodium 2 mg PO DAILY PRN Diarrhea 08/15/25 08/15/25 History A-D) vitamins A,C,F-zzkx-fhzawh 2,148 1 tab PO DAILY 08/15/25 08/15/25 History mcg-113 mg-45 mg-17.4 mg tablet (PreserVision AREDS) Past Med/Surg History Problem List (Updated 08/15/25 @ 17:58 by Willie Burciaga DO) Anemia (Acute) Chronic heart failure with preserved ejection fraction (HFpEF) Acute on chronic anemia Fall (Acute) Fracture of femur, left, closed (Acute) Sinus bradycardia Pleural effusion, bilateral Acute heart failure with preserved ejection fraction HLD (hyperlipidemia) CML (chronic myelocytic leukemia) HTN (hypertension) Medical History CKD (chronic kidney disease), stage III Acute respiratory failure with hypoxia and hypercapnia Non-ST elevation ME (NSTEMI) Pulmonary edema Shortness of breath Surgical History Hx of colonoscopy Hx of repair of rotator cuff History of carpal tunnel surgery Family History Other Family history non-contributory Social History Smoking Status: Former smoker Hx Alcohol Use: No Hx Substance Use: No Preferred Language: Latvian Communication Ability: Effective Beliefs That Will Affect Care: None Current Living Situation: Spouse Feels Safe at Home: Yes Assistive Devices: None Review of Systems Review of Systems: All systems reviewed & are unremarkable except as noted in HPI & below Physical Exam Physical Exam: General: no acute distress sitting up in bed, WDWN Head: normocephalic, atraumatic Eyes: conjunctiva non-injected, anicteric ENT: normal inspection external ears, nose, mucous membranes mildly dry Neck: supple, trachea midline Lungs: clear, no respiratory distress, no wheezing/rhonchi/rales CV: RRR, no murmur, no pretibial edema Abd: normal BS, soft, non-tender Ext: no cyanosis, no calf tenderness; LLE: +shortened and externally rotated foot. +edema to left hip and thigh, +tenderness to palpation left anterior and lateral hip. No ROM attempted. +tenderness palpation left knee. Distal pulses palpable. RLE: normal appearance, non-tender to palpation, Full active ROM hip and knee without tenderness, distal pulses palpable. Neuro: A&O x 3, no focal deficits noted, normal affect Skin: pale, warm, dry Results & Data Results & Data Vital Signs (Past 12 Hours) Vital Signs Pulse Resp BP BP Pulse Ox 08/15/25 13:20 66 08/15/25 13:11 112/61 08/15/25 13:08 76 24 88/53 L 99 Laboratory Results Short CBC 08/15/25 Range/Units 13:20 WBC 21.46 H (4.8-10.8) K/ul Hgb 9.6 L (14.0-18.0) g/dL Hct 28.5 L (42.0-52.0) % Plt Count 175 (130-400) K/uL BMP 08/15/25 13:20 Sodium 138 Potassium 4.5 Chloride 104 Carbon Dioxide 25 BUN 21 Creatinine 1.33 Glucose 129 H Calcium 8.7 Liver Function 08/15/25 Range/Units 13:20 Total Bilirubin 0.7 (0.2-1.0) mg/dl AST 22 (13-39) U/L ALT 13 (7-52) U/L Alkaline Phosphatase 105 H (34-104) U/L Albumin 3.6 (3.4-5.0) gm/dl Diagnostic Findings Femur X-Ray 08/15/25 13:19 XR femur LT 2V routine CLINICAL HISTORY: pain post fall COMPARISON: None FINDINGS: There is an acute mildly displaced mildly comminuted intertrochanteric fracture proximal left femur. There is blanket artifact at the distal femur. No other fracture or dislocation seen of the left femur. 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 IMPRESSION: Acute fracture proximal left femur. ACT 112: Negative or not required by law. Electronically signed by: Liang Beverly M.D. 08/15/2025 3:03 PM Hip/Pelvis X-Ray 08/15/25 13:19 XR hip LT 2V w pelvis CLINICAL HISTORY: pain post fall COMPARISON: None FINDINGS: There is an acute mildly comminuted mildly displaced intertrochanteric fracture proximal left femur. There is a fracture at the proximal right femur/right greater trochanter of uncertain chronicity. No dislocation seen at the hips. No pelvic fracture seen. There are severe degenerative changes at the left hip. IMPRESSION: 1. Acute fracture proximal left femur. 2. Fracture of uncertain chronicity proximal right femur/right greater trochanter. ACT 112: Negative or not required by law. Electronically signed by: Liang Beverly M.D. 08/15/2025 3:02 PM Knee X-Ray 08/15/25 13:19 XR knee LT 1 or 2V routine CLINICAL HISTORY: pain post fall COMPARISON: None FINDINGS: There is overlying skin fold and blanket artifact. There is severe osteoarthritis. No acute fracture or dislocation seen at the left knee. IMPRESSION: No fracture seen at the left knee. ACT 112: Negative or not required by law. Electronically signed by: Liang Beverly M.D. 08/15/2025 3:04 PM Chest X-Ray 08/15/25 15:26 EXAM: Portable AP chest radiograph TECHNIQUE: AP portable radiograph of the chest was obtained. INDICATION: Shortness of breath Comparison: Chest radiograph May 24, 2023 FINDINGS: LINES and TUBES: None CARDIOVASCULAR: Cardiac silhouette is stably mildly enlarged in size. LUNGS/PLEURA: No focal consolidation identified. Chronic interstitial lung changes. No significant pleural fluid. No discernible pneumothorax. OSSEOUS/OTHER: No displaced acute osseous process identified. Unchanged elevation of the left hemidiaphragm. IMPRESSION: No radiographic evidence of acute cardiopulmonary or osseous Electronically signed by Byron Juan 08-15-2025 4:24 PM ECG Additional Comments: sinus rhythm, rate 67, no ST elevation per my interpretation Supervising Physician Co-Signing Physician Notes Attending addendum: The patient was seen and examined in emergency room in the presence of the family member He tripped and fell resulting in fracture of the left hip Complains of pain in the left hip with movement of the left lower extremity but denies any other significant symptoms On examination Lying in bed without any acute distress Hemodynamically stable Chestclear to auscultate bilaterally HeartS1-S2, regular Abdomenbenign Extremitiesno swelling. Any movement of the left lower extremity causes pain in the left hip. Right lower extremity movement did not produce any pain in the hip or knee joint His admission labs, EKG and imaging studies reviewed Has acute fracture proximal left femurOrtho consulted and will have possible repair tomorrow. CT of the pelvis has been ordered to rule out any fracture of the right hip CKDremains stable and will give cautious amount of intravenous fluid CML with chronic anemiaremains stable Agree with assessment and plan as outlined above by Sivan Everett PA-C and take the full responsibility of care in the hospital Total time taken to review the chart, medications, examining the patient and discussion with the patient about the plan was [address] Debby Harper
--- NOTE | 2025-08-15 16:24 | XRay Report ---
EXAM: Portable AP chest radiograph TECHNIQUE: AP portable radiograph of the chest was obtained. INDICATION: Shortness of breath Comparison: Chest radiograph May 24, 2023 FINDINGS: LINES and TUBES: None CARDIOVASCULAR: Cardiac silhouette is stably mildly enlarged in size. LUNGS/PLEURA: No focal consolidation identified. Chronic interstitial lung changes. No significant pleural fluid. No discernible pneumothorax. OSSEOUS/OTHER: No displaced acute osseous process identified. Unchanged elevation of the left hemidiaphragm. IMPRESSION: No radiographic evidence of acute cardiopulmonary or osseous Electronically signed by Byron Juan 08-15-2025 4:24 PM
[2025-08-15] MEDS ORDERED: NALOXONE HCL 0.4 MG/1 ML VIAL/CARP IV PRN (16:32)
[2025-08-15 17:09] LABS: Iron 45.0 mcg/dl (35-175); Transferrin 233.0 mg/dl (200-360)
[2025-08-15 17:27] LABS: Ferritin 25.0 ng/ml (8-388)
--- NOTE | 2025-08-15 17:37 | CT Scan Report ---
CT PELVIS WITHOUT CONTRAST: TECHNIQUE: Un-enhanced CT examination of the pelvis was performed. IV CONTRAST: None HISTORY: Trauma COMPARISON: Pertinent radiographs from earlier in the same day are not viewable in our system. FINDINGS: OSSEOUS STRUCTURES: Acute traumatic and comminuted intertrochanteric fractures of the left femur with impaction and varus angulation. Surrounding intramuscular hematomas. Multiple corticated osseous bodies are noted by the right femoral trochanters likely representing sequela of chronic injuries and dystrophic/heterotopic ossifications Grade 1 anterolisthesis of L5 on S1 with associated chronic pars defects URINARY BLADDER: Unremarkable REPRODUCTIVE ORGANS: Unremarkable AORTA and ILIAC ARTERIES: No aneurysmal dilatation of the visualized portion of the aorta or iliac arteries seen. LYMPH NODES: No pelvic lymph adenopathy identified. GASTROINTESTINAL: The visualized bowel is normal in caliber. PERITONEUM: No ascites is seen. No peritoneal masses seen. PELVIC WALL: No hernia is identified IMPRESSION: Acute traumatic and comminuted intertrochanteric fractures of the LEFT femur with impaction and varus angulation. Surrounding intramuscular hematomas. Multiple corticated osseous bodies are noted by the RIGHT femoral trochanters likely representing sequela of chronic injuries and dystrophic/heterotopic ossificationsThis is Electronically signed by Byron Juan 08-15-2025 5:37 PM
[2025-08-15] MEDS ORDERED: MAGNESIUM HYDROXIDE SUSP 30 ML UDC PO PRN (18:01)
--- NOTE | 2025-08-15 18:01 | Orthopedic Consultation ---
Date of Consultation August 15, 2025 Assessment & Plan (1) Fracture of femur, left, closed: Impression: Left displaced intertrochanteric femur fracture, likely secondary to osteoporosis Multimodal pain control, ice hip PRN Bedrest, non-weightbearing to affected lower extremity until after surgery Admit to hospital under hospitalist service OR planned for 08/16/2025 for left hip closed versus open reduction internal fixation with a cephalomedullary nail. Preoperative labs, EKG, chest x-ray obtained NPO and hold any anticoagulation for procedure Informed consent for surgery obtained CM/SW for discharge planning Perioperative antibiotics with Ancef, and perioperative TXA IV ordered I discussed the risk, benefits, and alternatives to surgery which is a left hip closed versus open reduction internal fixation with a cephalomedullary nail. Risks include but are not limited to infection, pain, bleeding, blood loss, nerve or blood vessel damage, stiffness, weakness, wound healing issues, hardware failure, need for additional procedures, malunion, nonunion, limited mobility, blood clots, heart attack, stroke, and even . Signed informed consent will be obtained prior to surgery. History of Present Illness History of Present Illness Patient is an 84-year-old male with history of CML, HTN, dyslipidemia, heart failure, CKD 3, BPH who presented to the emergency department today after ground-level fall. He was getting his garbage to take out he was wearing socks, he slipped on his floor fell directly onto his left side. He had immediate pain in his left hip. He is unable to get himself up off the floor. He eventually came to the emergency department due to disability and pain with attempted weightbearing. He denies any dizziness. Denies striking his head or loss of consciousness. Denies any history of left hip pain in the past. He does have a history of right knee pain but no right hip pain or injury that he is aware of. He denies any pain in his right hip at this time. He does complain of pain about his left hip which is worse with any movement and is better with rest and immobilization. He denies any numbness or tingling about his left foot. Denies any history of left hip injury in the past. PMH: CML, HTN, HLD, CHF, CKD 3, BPH PSH: Left shoulder rotator cuff repair, hernia surgery, cataract surgery SH: Former smoker, denies alcohol use, denies illicit drug use. Lives independent denies use of any assistive devices. Allergies: NKDA Medications: Denies any blood thinning medications Allergies Allergy/AdvReac Type Severity Reaction Status Date / Time bee venom protein (honey bee) Allergy Unknown Verified 08/15/25 15:31 hydrochlorothiazide AdvReac Severe caused LADONNA Verified 08/15/25 15:31 ivory soap Allergy Rash Uncoded 08/15/25 15:31 Home Medications Medication Instructions Recorded Confirmed Type coenzyme Q10 75 mg capsule 75 mg PO QAM #0 caps 11/22/14 08/15/25 History bosutinib 400 mg tablet (Bosulif) 400 mg PO DAILY 05/20/23 08/15/25 History atorvastatin 20 mg tablet (Lipitor) 20 mg PO HS #30 tabs 05/26/23 08/15/25 Rx furosemide 40 mg tablet 20 mg PO QAM PRN Fluid Retention 08/15/25 08/15/25 History loperamide 2 mg tablet (Imodium 2 mg PO DAILY PRN Diarrhea 08/15/25 08/15/25 History A-D) vitamins A,C,G-izay-cmwtzr 2,148 1 tab PO DAILY 08/15/25 08/15/25 History mcg-113 mg-45 mg-17.4 mg tablet (PreserVision AREDS) Patient History Medical History CKD (chronic kidney disease), stage III Acute respiratory failure with hypoxia and hypercapnia Non-ST elevation [place] (NSTEMI) Pulmonary edema Shortness of breath Surgical History Hx of colonoscopy Hx of repair of rotator cuff History of carpal tunnel surgery Family History Other Family history non-contributory Social History Smoking Status: Former smoker Hx Alcohol Use: No Hx Substance Use: No Preferred Language: Maori Communication Ability: Effective Beliefs That Will Affect Care: None Current Living Situation: Spouse Feels Safe at Home: Yes Assistive Devices: None Physical Exam Physical Exam: General: Vital signs stable, afebrile, no acute distress, A&Ox3 Musculoskeletal: Left lower Extremity: Skin is clean and intact, no evidence of open fracture Tenderness to palpation about the left lateral hip No tenderness to palpation about the left knee, ankle, foot L4-S1: SILT EHL/FHL/GS/TA motor intact with at least 3/5 strength DP/PT pulses palpable Lower leg and thigh compartments soft & compressible, no pain with passive extension/extension of the ankle Left leg rests in a leg shortened and externally rotated position Left hip pain with log roll A secondary survey was performed. The patient has no tenderness palpation about the right foot, ankle, lower leg, knee, thigh, or hip. He exhibits full flexion and extension of the hip and knee without any pain. Passively I flexed his right hip to 100 degrees with 20 degrees internal rotation 30 degrees external rotation. This was completely pain-free. He has no tenderness to palpation about the hands, wrist, forearms, elbows, humerus, or shoulders of the bilateral upper extremities. He has no tenderness to palpation over the bilateral clavicles. He exhibits full pain-free range of motion of the bilateral upper extremities actively. Results & Data Vital Signs (Past 12 Hours) Vital Signs Pulse Resp BP BP Pulse Ox O2 Del Method 08/15/25 13:30 64 19 115/80 100 Room Air 08/15/25 13:21 67 25 H 102/59 L 100 Room Air 08/15/25 13:20 66 08/15/25 13:11 112/61 08/15/25 13:08 76 24 88/53 L 99 Diagnostic Findings AP pelvis, AP and lateral x-rays of the left hip, AP and lateral x-rays of the left femur, AP and lateral x-ray of the left knee were independently reviewed and interpreted by myself demonstrating a displaced standard obliquity fracture of the intertrochanteric left femur involving both the greater and lesser trochanter. No other fracture or dislocation is seen. No evidence of lytic lesions seen about the left hip or femur. Generalized osteopenia. 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 I do not appreciate an acute fracture. CT scan of the pelvis was obtained due to wanting to further evaluate the right hip given the heterotopic bone. This certainly could have represented a fracture. I did obtain a CT scan which I independently reviewed there is heterotopic bone noted about the posterior right hip. I do not appreciate any acute fracture. All of the bone as well as sites that may have come from appear to be well-corticated and chronic in nature. I do not appreciate any evidence of an acute injury. Femur X-Ray 08/15/25 13:19 XR femur LT 2V routine CLINICAL HISTORY: pain post fall COMPARISON: None FINDINGS: There is an acute mildly displaced mildly comminuted intertrochanteric fracture proximal left femur. There is blanket artifact at the distal femur. No other fracture or dislocation seen of the left femur. 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 IMPRESSION: Acute fracture proximal left femur. ACT 112: Negative or not required by law. Electronically signed by: Liang Beverly M.D. 08/15/2025 3:03 PM Hip/Pelvis X-Ray 08/15/25 13:19 XR hip LT 2V w pelvis CLINICAL HISTORY: pain post fall COMPARISON: None FINDINGS: There is an acute mildly comminuted mildly displaced intertrochanteric fracture proximal left femur. There is a fracture at the proximal right femur/right greater trochanter of uncertain chronicity. No dislocation seen at the hips. No pelvic fracture seen. There are severe degenerative changes at the left hip. IMPRESSION: 1. Acute fracture proximal left femur. 2. Fracture of uncertain chronicity proximal right femur/right greater trochanter. ACT 112: Negative or not required by law. Electronically signed by: Liang Beverly M.D. 08/15/2025 3:02 PM Knee X-Ray 08/15/25 13:19 XR knee LT 1 or 2V routine CLINICAL HISTORY: pain post fall COMPARISON: None FINDINGS: There is overlying skin fold and blanket artifact. There is severe osteoarthritis. No acute fracture or dislocation seen at the left knee. IMPRESSION: No fracture seen at the left knee. ACT 112: Negative or not required by law. Electronically signed by: Liang Beverly M.D. 08/15/2025 3:04 PM Chest X-Ray 08/15/25 15:26 EXAM: Portable AP chest radiograph TECHNIQUE: AP portable radiograph of the chest was obtained. INDICATION: Shortness of breath Comparison: Chest radiograph May 24, 2023 FINDINGS: LINES and TUBES: None CARDIOVASCULAR: Cardiac silhouette is stably mildly enlarged in size. LUNGS/PLEURA: No focal consolidation identified. Chronic interstitial lung changes. No significant pleural fluid. No discernible pneumothorax. OSSEOUS/OTHER: No displaced acute osseous process identified. Unchanged elevation of the left hemidiaphragm. IMPRESSION: No radiographic evidence of acute cardiopulmonary or osseous Electronically signed by Byron Juan 08-15-2025 4:[address] 08/15/25 15:45 CT PELVIS WITHOUT CONTRAST: TECHNIQUE: Un-enhanced CT examination of the pelvis was performed. IV CONTRAST: None HISTORY: Trauma COMPARISON: Pertinent radiographs from earlier in the same day are not viewable in our system. FINDINGS: OSSEOUS STRUCTURES: Acute traumatic and comminuted intertrochanteric fractures of the left femur with impaction and varus angulation. Surrounding intramuscular hematomas. Multiple corticated osseous bodies are noted by the right femoral trochanters likely representing sequela of chronic injuries and dystrophic/heterotopic ossifications Grade 1 anterolisthesis of L5 on S1 with associated chronic pars defects URINARY BLADDER: Unremarkable REPRODUCTIVE ORGANS: Unremarkable AORTA and ILIAC ARTERIES: No aneurysmal dilatation of the visualized portion of the aorta or iliac arteries seen. LYMPH NODES: No pelvic lymph adenopathy identified. GASTROINTESTINAL: The visualized bowel is normal in caliber. PERITONEUM: No ascites is seen. No peritoneal masses seen. PELVIC WALL: No hernia is identified IMPRESSION: Acute traumatic and comminuted intertrochanteric fractures of the LEFT femur with impaction and varus angulation. Surrounding intramuscular hematomas. Multiple corticated osseous bodies are noted by the RIGHT femoral trochanters likely representing sequela of chronic injuries and dystrophic/heterotopic ossificationsThis is Electronically signed by Byron Juan 08-15-2025 5:37 PM (1) Fracture of femur, left, closed Encounter type: initial encounter Femur location: intertrochanteric Fracture alignment: displaced Qualified Code(s): S72.142A - Displaced intertrochanteric fracture of left femur, initial encounter for closed fracture
[2025-08-15 18:07] LABS: Folate (Folic Acid),Ser orPlas 16.93 ng/ml (>5.38)
[2025-08-15 18:08] LABS: Vitamin B12 355.0 pg/ml (180-914)
[2025-08-15] MEDS: SODIUM CHLORIDE 0.9% 1,000 ML IV SCH (18:14)
[2025-08-15] MEDS: MoRPHine SULFATE 2 MG/ML CARP IV PRN (18:16)
[2025-08-15] MEDS: ONDANSETRON INJ 2 MG/ML 2 ML VIAL IV PRN (18:49)
--- NOTE | 2025-08-15 22:11 | Electrocardiogram Report ---
Test Reason : Blood Pressure : */* mmHG Vent. Rate : 67 BPM Atrial Rate : 67 BPM P-R Int : 152 ms QRS Dur : 108 ms QT Int : 442 ms P-R-T Axes : 98 53 62 degrees QTcB Int : 467 ms Normal sinus rhythm Normal ECG When compared with ECG of 20-May-2023 11:26, Premature ventricular complexes are no longer Present Questionable change in QRS axis Nonspecific T wave abnormality no longer evident in Inferior leads Confirmed by Sam West ([id number]) on 08/15/2025 10:11:07 PM Referred By: REFERRED SELF Confirmed By: Sam West
[2025-08-15] MEDS: ATORVASTATIN 20 MG TAB PO SCH (23:19)
[2025-08-15] MEDS: ACETAMINOPHEN 500 MG TAB PO SCH (23:19)
[2025-08-15] MEDS: LACTATED RINGER'S 1,000 ML IV SCH (23:21)
[2025-08-16 06:50] LABS: Appearance Urine Turbid (Clear); Bacteria Urine Automated 1+ (None Seen); Glucose Urine UA Negative (Negative); RBC Urine Automated >20 /hpf (0-2); WBC Urine Automated >50 /hpf (0-5)
[2025-08-16 06:53] LABS: Hematocrit (blood only) 21.2 % (42.0-52.0); Hemoglobin 7.1 g/dL (14.0-18.0); Immature Granulocytes # (auto) 0.04 K/uL (0.01-0.20); Immature Granulocytes % (auto) 0.3 %; Mean Corpuscular Hemoglobin 29.0 pg (25.0-34.0); Mean Corpuscular Volume 86.5 fL (80.0-100.0); Platelet Count 137 K/uL (130-400); RDW Standard Deviation 50.1 fL (36.4-46.3); Red Blood Count 2.45 M/uL (4.70-6.10); White Blood Count 15.30 K/ul (4.8-10.8)
[2025-08-16 07:15] LABS: Cast Urine Automated 0-2 /lpf (0-2)
[2025-08-16 07:28] LABS: Anion Gap 6.0 (3-11); Blood Urea Nitrogen 32.0 mg/dl (6-23); Calcium 8.7 mg/dl (8.6-10.3); Carbon Dioxide 27.0 mmol/L (21-32); Chloride 105.0 mmol/L (98-107); Creatinine Clr Calc Pharmacy 31.1 ml/min; Glucose 133.0 mg/dl (70-99(Fasting)); Potassium 5.0 mmol/L (3.5-5.1); Sodium 138.0 mmol/L (136-145)
[2025-08-16] MEDS ORDERED: SODIUM CHLORIDE 0.9% 100 ML IV PRN ×4 (07:31→12:16)
[2025-08-16 07:33] LABS: Polychromasia 1+
[2025-08-16 08:12] LABS: Creatine Kinase 190.0 U/L (30-223)
--- NOTE | 2025-08-16 09:57 | Hospitalist Progress Note ---
Date of Service August 16, 2025 Assessment & Plan (1) Fracture of femur, left, closed: (2) Fall: (3) CKD (chronic kidney disease), stage III: (4) CML (chronic myelocytic leukemia): (5) Acute on chronic anemia: (6) HTN (hypertension): (7) HLD (hyperlipidemia): (8) Chronic heart failure with preserved ejection fraction (HFpEF): Plan Patient is 84 year old male with PMH CML, HTN, dyslipidemia, HFpEF, CKD III, BPH presented to ER with c/o mechanical fall and left hip pain today. Left femur x-ray: Acute fracture proximal left femur CT pelvis: Acute traumatic and comminuted intertrochanteric fractures of the LEFT femur with impaction and varus angulation. Surrounding intramuscular hematomas. #Acute Left Femur fracture, comminuted with impaction and varus angulation #LLE Intramuscular hematoma pt admitted to med/surg maintain NPO, bed rest Ortho consulted - plan for OR later today continue current pain regimen with scheduled APAP and prn oxy IR and IV morphine preop ecg reviewed, nsr 67bpm, no st or t wave changes, CXR: stable RCRI 5% given hx of CHF and elevated cr; benefit of fixation and mobilization>risk of delay of procedure would like to optimize hemoglobin before procedure which can be done this morning Discussed with Dr. Burciaga, plan for OR later today #Acute blood loss anemia in setting of traumatic hematoma/fracture admitting hgb 9.6, down to 7.1 this a.m. Type/Cross and transfuse 1 unit prbc, will repeat h/h post transfusion to optimize for surgery later today pt with known chronic anemia in setting of CML, On Bosulif daily, baseline hgb 11-12s, was 11.5 on anemia panel reveals low normal iron, will check tibc to calculate T sat, pt likely to benefit from oral iron post op #Acute on Chronic CKD-3 baseline cr: 1.1-1.2 cr 2.0 today, suspect possible atn in setting of hypotension, blood loss, low intake pt currently receiving blood and will resume fluid once blood completes avoid nephrotoxic agents, suspect may climb higher before improves, will follow closely #CML follows [facility]/onc, on bosulif daily baseline wbc ~ 11k, monitor cbc Discussed with Dr. Navarrete who recommends to hold bosulif, it is not directly contraindicated with surgery, but he would suggest holding it to reduce risk of bleeding, infection and organ toxicity. He recommends resuming medication 1 week after wound is healed. #Chronic HFpEF 05/20/2023 echo: EF: 55-60%, mild concentric LVH, mild aortic valve sclerosis without significant stenosis, mild tricuspid regurgitation, estimated systolic pulmonary pressure 39 mmHg, large left pleural effusion, no pericardial effusion Takes lasix intermittently, pt reports takes every couple of months for BLE edema Appears euvolemic to slightly dry today Not followed with cardiology for couple of years #HTN Per admitting provider, "Previously patient was on lisinopril 20 mg daily, metoprolol succinate 25 mg daily, spironolactone 25 mg daily. Patient was unsure if he was taking these. I called his [facility] and these medications have not been filled since 2022 and 2023." Monitor off medications bp low normal given blood loss #HLD chronic, stable continue statin DVT Prophylaxis SCDs Dispo: Admit med surg, suspect pt likely to need rehab post surgery DNR/DNI as per discussion with pt Follows with Dr Machado for routine care Pt was seen and care coordinated with Dr Araujo. See addendum I spent a total of 55 minutes reviewing notes, outpatient records, labs, medication, coordinating, documenting and providing care for this patient excluding time spent in the performance of separately billed services and excluding time spent by another provider/QHP. Admission and Anticipated Discharge Date Admission Date: August 15, 2025 Supervising Physician Co-Signing Physician Notes Pt seen and examined by me, care coordinated w/ Yahaira Meyers PA-C, pls refer to her note above for further detail. Pt presents after a fall, found to have left femur fx. Currently lying in bed in NAD. he is awake, alert, able to answer appropriately. Denies any significant pain at this time. Tis AM Hgb down to 7.1, and blood transfusion discussed and planned (about to start), also found to have LADONNA, with Cr of 2 (likely secondary to acute blood los anemia). Pt has a hx of CML and follows w/ Dr. Navarrete (heme/onc), baseline Hgb seems to be about 11), will cont. to closely monitor and will re-check H&H after transfusion.Pt is also receiving gentle fluids.Lungs CTAB, heart sounds regular, abdomen soft, nontender. LLE with thigh edema. Orthopedics consulted and likely plan surgery for later today when pt's H&H improved. MD Gayle Subjective Patient was seen and examined in room 355 bed 1. Follow-up left femur fracture. Patient was sleeping and was easily aroused. Currently at rest and lying he denies any pain. He denies any fever, chills, sweats, lightheadedness, dizziness, chest pain, shortness of breath, nausea, vomiting or abdominal pain. He denies ever receiving a blood transfusion in the past. Risks and benefits of blood transfusion were explained to patient. Review of Systems Review of Systems: All systems reviewed & are unremarkable except as noted in HPI & below Physical Exam Physical Exam: Gen: WD/WN, M, lying in bed, NAD, A&O x3 HEENT: Normocephalic, atraumatic, conjunctivae moist, sclerae anicteric, mucous membranes moist. Lung: Clear to Auscultation bilaterally, no wheezes/rales/rhonchi Heart: Regular rate, regular rhythm, no murmurs, rubs, or gallops Abdomen: Soft, NT, ND +BS x 4 Extremities: LLE proximal lateral thigh significant edema, LLE shortened, not warm to touch, no erythema Skin: Warm, no rash, negative turgor. Results & Data Results & Data Vital Signs (Past 12 Hours) Vital Signs Temp Pulse Pulse Resp BP BP Pulse Ox 08/16/25 09:11 37 C 61 16 119/63 96 08/16/25 08:56 37 C 61 17 103/60 97 08/16/25 08:36 37.0 C 60 17 110/65 97 08/16/25 07:15 37.0 C 62 16 97/55 L 93 08/15/25 22:36 O2 Del Method 08/16/25 09:11 08/16/25 08:56 08/16/25 08:36 08/16/25 07:15 Room Air 08/15/25 22:36 Room Air Laboratory Results I have independently reviewed and interpreted patient's cbc, bmp 08/16/25 08/16/25 08/15/25 Range/Units Unknown 05:50 17:04 WBC 15.30 H (4.8-10.8) K/ul RBC 2.45 L (4.70-6.10) M/uL Hgb 7.1 L (14.0-18.0) g/dL Hct 21.2 L (42.0-52.0) % MCV 86.5 (80.0-100.0) fL MCH 29.0 (25.0-34.0) pg MCHC 33.5 (32.0-36.0) g/dL RDW Std Deviation 50.1 H (36.4-46.3) fL RDW Coeff of Ebony 15.9 H (11.5-14.5) % Plt Count 137 (130-400) K/uL MPV 11.8 (9.4-12.4) fL Immature Gran % (Auto) 0.3 % Neut % (Auto) 59.4 % Lymph % (Auto) 29.9 % [place] % (Auto) 9.9 % Eos % (Auto) 0.3 % Baso % (Auto) 0.2 % Neut # (Auto) 9.10 H (1.40-6.50) K/uL Lymph # (Auto) 4.57 H (1.20-3.40) K/uL [place] # (Auto) 1.51 H (0.11-0.59) K/uL Eos # (Auto) 0.05 (0.00-0.50) K/uL Baso # (Auto) 0.03 (0.00-0.20) K/uL Immature Gran # (Auto) 0.04 (0.01-0.20) K/uL Polychromasia 1+ PT (9.0-12.0) Seconds INR (0.9-1.1) APTT (21-31) Seconds PTT Ratio Sodium 138 (136-145) mmol/L Potassium 5.0 (3.5-5.1) mmol/L Chloride 105 (98-107) mmol/L Carbon Dioxide 27 (21-32) mmol/L Anion Gap 6 (3-11) BUN 32 H (6-23) mg/dl Creatinine 2.01 H D (0.6-1.4) mg/dl Est Cr Clr Drug Dosing 31.1 ml/min eGFR 32.51 BUN/Creatinine Ratio 15.9 (10-20) Glucose 133 H (70-99(Fasting)) mg/dl Calcium 8.7 (8.6-10.3) mg/dl Iron (35-175) mcg/dl Transferrin (200-360) mg/dl Ferritin (8-388) ng/ml Total Bilirubin (0.2-1.0) mg/dl AST (13-39) U/L ALT (7-52) U/L Alkaline Phosphatase (34-104) U/L Total Creatine Kinase 190 (30-223) U/L Total Protein (6.0-8.3) gm/dl Albumin (3.4-5.0) gm/dl Globulin (2.5-4.0) gm/dl Albumin/Globulin Ratio (0.9-2) Vitamin B12 355 (180-914) pg/ml Folate 16.93 (>5.38) ng/ml Urine Color Dark Yellow Urine Appearance Turbid A (Clear) Urine pH 5.0 (4.5-7.5) Ur Specific [place] 1.027 (1.000-1.030) Urine Protein 2+ H (Negative) Urine Glucose (UA) Negative (Negative) Urine Ketones Trace H (Negative) Urine Blood 3+ H (Negative) Urine Nitrite Negative (Negative) Urine Bilirubin Negative (Negative) Urine Urobilinogen Negative (Negative) Ur Leukocyte Esterase 2+ H (Negative) Urine WBC (Auto) >50 H (0-5) /hpf Urine RBC (Auto) >20 H (0-2) /hpf U Hyaline Cast (Auto) 0-2 (0-2) /lpf U Epithel Cells (Auto) 6-10 H (0-2) /hpf Urine Bacteria (Auto) 1+ H (None Seen) Urine Comment Blood Type O Positive Blood Type Recheck O Positive Antibody Screen NEGATIVE Crossmatch See Detail 08/15/25 Range/Units 13:20 WBC 21.46 H (4.8-10.8) K/ul RBC 3.32 L (4.70-6.10) M/uL Hgb 9.6 L (14.0-18.0) g/dL Hct 28.5 L (42.0-52.0) % MCV 85.8 (80.0-100.0) fL MCH 28.9 (25.0-34.0) pg MCHC 33.7 (32.0-36.0) g/dL RDW Std Deviation 49.1 H (36.4-46.3) fL RDW Coeff of Ebony 15.6 H (11.5-14.5) % Plt Count 175 (130-400) K/uL MPV 10.8 (9.4-12.4) fL Immature Gran % (Auto) 0.4 % Neut % (Auto) 84.5 % Lymph % (Auto) 9.3 % [place] % (Auto) 5.6 % Eos % (Auto) 0.0 % Baso % (Auto) 0.2 % Neut # (Auto) 18.10 H (1.40-6.50) K/uL Lymph # (Auto) 2.00 (1.20-3.40) K/uL [place] # (Auto) 1.21 H (0.11-0.59) K/uL Eos # (Auto) 0.01 (0.00-0.50) K/uL Baso # (Auto) 0.05 (0.00-0.20) K/uL Immature Gran # (Auto) 0.09 (0.01-0.20) K/uL Polychromasia PT 11.1 (9.0-12.0) Seconds INR 1.1 (0.9-1.1) APTT 24 (21-31) Seconds PTT Ratio 0.9 Sodium 138 (136-145) mmol/L Potassium 4.5 (3.5-5.1) mmol/L Chloride 104 (98-107) mmol/L Carbon Dioxide 25 (21-32) mmol/L Anion Gap 9 (3-11) BUN 21 (6-23) mg/dl Creatinine 1.33 (0.6-1.4) mg/dl Est Cr Clr Drug Dosing 47.0 ml/min eGFR 53.37 BUN/Creatinine Ratio 15.8 (10-20) Glucose 129 H (70-99(Fasting)) mg/dl Calcium 8.7 (8.6-10.3) mg/dl Iron 45 (35-175) mcg/dl Transferrin 233 (200-360) mg/dl Ferritin 25.0 (8-388) ng/ml Total Bilirubin 0.7 (0.2-1.0) mg/dl AST 22 (13-39) U/L ALT 13 (7-52) U/L Alkaline Phosphatase 105 H (34-104) U/L Total Creatine Kinase (30-223) U/L Total Protein 6.5 (6.0-8.3) gm/dl Albumin 3.6 (3.4-5.0) gm/dl Globulin 2.9 (2.5-4.0) gm/dl Albumin/Globulin Ratio 1.2 (0.9-2) Vitamin B12 (180-914) pg/ml Folate (>5.38) ng/ml Urine Color Urine Appearance (Clear) Urine pH (4.5-7.5) Ur Specific [place] (1.000-1.030) Urine Protein (Negative) Urine Glucose (UA) (Negative) Urine Ketones (Negative) Urine Blood (Negative) Urine Nitrite (Negative) Urine Bilirubin (Negative) Urine Urobilinogen (Negative) Ur Leukocyte Esterase (Negative) Urine WBC (Auto) (0-5) /hpf Urine RBC (Auto) (0-2) /hpf U Hyaline Cast (Auto) (0-2) /lpf U Epithel Cells (Auto) (0-2) /hpf Urine Bacteria (Auto) (None Seen) Urine Comment Blood Type Blood Type Recheck Antibody Screen Crossmatch Medications Administered Current Inpatient Medications Acetaminophen (Acetaminophen 500 Mg Tab) 1,000 mg PO Q8H ERIC Stop: 09/14/25 21:59 Last Admin: 08/16/25 05:44 Dose: 1,000 mg Atorvastatin Calcium (Atorvastatin 20 Mg Tab) 20 mg PO HS ERIC Stop: 09/14/25 21:57 Last Admin: 08/15/25 23:19 Dose: 20 mg Bisacodyl (Bisacodyl 10 Mg Supp) 10 mg PA DAILY PRN PRN Reason: Constipation Stop: 09/14/25 16:31 Cefazolin Sodium (Ancef 2000mg) 2,000 mg in 15 mls @ 3.75 mls/min IV PREOP ERIC; Protocol Stop: 08/17/25 05:59 Tranexamic Acid (Tranexamic Acid / 0.7% Nacl) 1,000 mg in 100 mls @ 600 mls/hr IV TODAY@06 ERIC Stop: 09/15/25 05:59 Tranexamic Acid (Tranexamic Acid / 0.7% Nacl) 1,000 mg in 100 mls @ 600 mls/hr IV TODAY@0630 ERIC Stop: 09/15/25 06:29 Lactated Ringer's (Lr) 1,000 mls @ 80 mls/hr IV .[id number] [facility] Stop: 08/16/25 11:59 Last Admin: 08/15/25 23:21 Dose: 80 mls/hr Sodium Chloride (Nss) 100 mls @ 15 mls/hr IV .Q6H40M PRN PRN Reason: For Transfusion Duration Stop: 08/16/25 15:31 Sodium Chloride (Nss) 100 mls @ 15 mls/hr IV .Q6H40M PRN PRN Reason: For Transfusion Duration Stop: 08/16/25 15:36 Magnesium Hydroxide (Magnesium Hydroxide Susp 30 Ml Udc) 30 ml PO DAILY PRN PRN Reason: Constipation Stop: 09/14/25 16:31 Miscellaneous (Bosutinib [Bosulif]: Order Awaiting Action) 1 each N/A QS [facility] Stop: 09/15/25 07:59 Last Admin: 08/16/25 07:48 Dose: Not Given Morphine Sulfate (Morphine Sulfate 2 Mg/Ml Carp) 2 mg IV Q3H PRN PRN Reason: Severe Pain (Scale 7, 8, 9,10) Stop: 08/29/25 16:31 Last Admin: 08/16/25 03:35 Dose: 2 mg Naloxone HCl (Naloxone Hcl 0.4 Mg/1 Ml Vial/Carp) 0.1 mg IV UD PRN PRN Reason: Opiate Overdose Stop: 09/14/25 16:31 Ondansetron HCl (Ondansetron Inj 2 Mg/Ml 2 Ml Vial) 4 mg IV Q6H PRN PRN Reason: Nausea And Vomiting Stop: 09/14/25 16:31 Last Admin: 08/15/25 18:49 Dose: 4 mg Oxycodone HCl (Oxycodone Hcl Ir 5 Mg Tab (Immediate Release)) 5 mg PO Q4H PRN PRN Reason: MODERATE Pain (4,5,6) & Pre PT Stop: 08/29/25 16:31 Polyethylene Glycol (Polyethylene (Miralax) 17 Gm Pack) 17 gm PO DAILY PRN PRN Reason: Constipation Stop: 09/14/25 21:57 (1) Fracture of femur, left, closed Encounter type: initial encounter Femur location: intertrochanteric Fracture alignment: displaced Qualified Code(s): S72.142A - Displaced intertrochanteric fracture of left femur, initial encounter for closed fracture (2) Fall Encounter type: initial encounter Qualified Code(s): W19.XXXA - Unspecified fall, initial encounter
--- NOTE | 2025-08-16 10:28 | Orthopedic Progress Note ---
<Statement entered by Willie Burciaga, DO - 08/16/25 15:03> I personally saw and evaluated this patient today. He is resting comfortably. He is in no acute distress. He denies chest pain, shortness of breath, or other acute complaints. His pain is well-controlled with medications. General: Vital signs stable, afebrile, no acute distress Musculoskeletal: Left lower Extremity: Skin is clean and intact, no evidence of open fracture Tenderness to palpation about the left hip No tenderness to palpation about the left knee, ankle, foot L4-S1: Sensation is intact to light touch EHL/FHL/GS/TA grossly motor intact DP/PT pulses palpable Thigh is swollen but compartments are soft and compressible Leg shortened and externally rotated Assessment and plan: 1. Left intertrochanteric femur fracture Will proceed to the operating room today for closed versus open reduction internal fixation with cephalomedullary nail of the left hip. N.p.o. for surgery Continue with multimodal pain control Continue with ice to the left hip as needed Hold anticoagulants 2. Anemia Hemoglobin 7.1 this morning. 1 unit PRBCs was transfused, recheck was still low at 7.4. He was transfused another unit of PRBCs. Will continue to follow, shelby due to fracture related bleeding, dilution with IV fluids. Date of Service August 16, 2025 Assessment & Plan (1) Fracture of femur, left, closed: Plan: The patient was educated regarding today's findings. He is currently NPO. Anticipate he will proceed with surgical intervention, specifically trochanteric nail placement, later this afternoon. He will require transfusion pre-ope ratively given his low H&H. This has already been ordered by the hospitalist team. Continue nonweightbearing status at this time. Informed written consent has already been obtained by Dr. Burciaga for surgery. Admission and Anticipated Discharge Date Admission Date: August 15, 2025 Subjective This 84-year-old male was seen today in his room. He is scheduled for a left hip trochanteric nail later today. He currently denies any chest pain, shortness of breath, nausea, vomiting, or abdominal pain. He states he did have some pain medication very early in the morning that made him nauseated and he vomited once. He has had none since. His hip pain is controlled as long as he does not move the leg. He is anxious to get surgery started. No additional complaints. Physical Exam Physical Exam: General: Well-developed, well-nourished, elderly white male, in no acute distress. Laying in bed. Alert and oriented. Conversive. Skin: Warm and dry with good turgor. No open wounds on the left leg. No edema or erythema at this time. Musculoskeletal: The patient has intact motor function of his left ankle and toes. Hip motion was not attempted due to the known fracture. Neurologic: Gross sensation is intact across the left leg by soft touch. Peripheral pulses are 2+. Results & Data Vital Signs (Past 12 Hours) Vital Signs Temp Pulse Pulse Resp BP BP Pulse Ox 08/16/25 09:41 36.8 C 63 17 105/57 L 98 08/16/25 09:11 37 C 61 16 119/63 96 08/16/25 08:56 37 C 61 17 103/60 97 08/16/25 08:36 37.0 C 60 17 110/65 97 08/16/25 07:15 37.0 C 62 16 97/55 L 93 08/15/25 22:36 O2 Del Method 08/16/25 09:41 08/16/25 09:11 08/16/25 08:56 08/16/25 08:36 08/16/25 07:15 Room Air 08/15/25 22:36 Room Air Laboratory Results CBC obtained this morning shows a white count of 15.3. H&H is 7.1 and 21.2. Platelets 137,000. INR is 1.1 from yesterday. Renal profile this morning shows normal electrolytes. BUN of 32 with creatinine 2.01. These are both mild to moderately elevated from his usual level. (1) Fracture of femur, left, closed Encounter type: initial encounter Femur location: intertrochanteric Fracture alignment: displaced Qualified Code(s): S72.142A - Displaced intertrochanteric fracture of left femur, initial encounter for closed fracture
[2025-08-16] MEDS: cefTRIAXone SODIUM 2,000 MG/50 ML BAG IV SCH (11:36)
[2025-08-16 11:58] LABS: Hematocrit (blood only) 22.3 % (42.0-52.0); Hemoglobin 7.5 g/dL (14.0-18.0)
[2025-08-16] MEDS ORDERED: MIDAZOLAM HCL 1 MG/ML 2ML VIAL ONE (12:53)
[2025-08-16] MEDS ORDERED: LIDOCAINE 2% 2 ML VIAL/AMP(20MG/ML) INFIL ONE (14:11)
[2025-08-16] MEDS ORDERED: PROPOFOL IV EMULSION 10 MG/ML 20 ML VIAL IV ONE (14:11)
[2025-08-16] MEDS ORDERED: ONDANSETRON INJ 2 MG/ML 2 ML VIAL ONE (14:11)
[2025-08-16] MEDS ORDERED: ROPIVACAINE 0.5% 5 MG/ML 30 ML VIAL ONE (14:15)
[2025-08-16] MEDS ORDERED: ONDANSETRON INJ 2 MG/ML 2 ML VIAL IV PRN ×3 (14:16→14:40)
[2025-08-16] MEDS ORDERED: ATROPINE SULFATE 0.1 MG/ML 10ML SYR IV PRN ×2 (14:16→14:36)
[2025-08-16] MEDS ORDERED: SODIUM CHLORIDE 0.9% PF INJ 10 ML VIAL ONE (14:16)
--- NOTE | 2025-08-16 14:16 | Anesthesiology Consultation ---
Date of Service August 16, 2025 Assessment & Plan (1) Encounter for pre-operative examination: Chart Review Chart Review: Acceptable Risk for Surgery and Patient NOT seen in Pre Admission Testing Consults Requested none Additional Notes seen in preop, 2/2 PRBCs transfusing History Surgery Operation Date: 08/16/25 14:00 Proposed Procedures p Left Troch Nail - Willie Burciaga DO Height/Weight Height: 6 ft Weight: 86.4 kg Allergies Allergy/AdvReac Type Severity Reaction Status Date / Time bee venom protein (honey bee) Allergy Unknown Verified 08/15/25 15:31 hydrochlorothiazide AdvReac Severe caused LADONNA Verified 08/15/25 15:31 ivory soap Allergy Rash Uncoded 08/15/25 15:31 Medications Home Medications Medication Instructions Recorded Confirmed Last Taken coenzyme Q10 75 mg capsule 75 mg PO QAM #0 caps 11/22/14 08/15/25 08/15/25 bosutinib 400 mg tablet (Bosulif) 400 mg PO DAILY 05/20/23 08/15/25 08/14/25 atorvastatin 20 mg tablet (Lipitor) 20 mg PO HS #30 tabs 05/26/23 08/15/25 08/14/25 furosemide 40 mg tablet 20 mg PO QAM PRN Fluid Retention 08/15/25 08/15/25 Unknown loperamide 2 mg tablet (Imodium 2 mg PO DAILY PRN Diarrhea 08/15/25 08/15/25 Unknown A-D) vitamins A,C,[id number]-ddhu-[id number] 2,148 1 tab PO DAILY 08/15/25 08/15/25 Unknown mcg-113 mg-45 mg-17.4 mg tablet (PreserVision AREDS) Active Medications Generic Name Dose Route Start Last Admin Trade Name Freq PRN Reason Stop Dose Admin Acetaminophen 1,000 mg 08/15/25 22:00 08/16/25 05:44 Acetaminophen 500 Mg Tab PO 09/14/25 21:59 1,000 mg Q8H ERIC Administration Atorvastatin Calcium 20 mg 08/15/25 21:58 08/15/25 23:19 Atorvastatin 20 Mg Tab PO 09/14/25 21:57 20 mg HS EIRC Administration Ceftriaxone Sodium 2,000 mg in 50 mls @ 100 mls/hr 08/16/25 11:00 08/16/25 12:06 Rocephin IV 08/21/25 10:59 Infused Q24H ERIC Infusion Protocol Miscellaneous 1 each 08/16/25 08:00 08/16/25 07:48 Bosutinib [Bosulif]: Order Awaiting Action N/A 09/15/25 07:59 Not Given QS ERIC Morphine Sulfate 2 mg 08/15/25 16:32 08/16/25 12:10 Morphine Sulfate 2 Mg/Ml Carp IV 08/29/25 16:31 2 mg Q3H PRN Administration Severe Pain (Scale 7, 8, 9,10) Ondansetron HCl 4 mg 08/15/25 16:32 08/15/25 18:49 Ondansetron Inj 2 Mg/Ml 2 Ml Vial IV 09/14/25 16:31 4 mg Q6H PRN Administration Nausea And Vomiting NPO Date Last Intake of Fluids: 08/15/25 Time Last Intake of Fluids: 23:00 Date Last Intake of Solids: 08/15/25 Time Last Intake of Solids: 23:00 Past Medical History Medical History CKD (chronic kidney disease), stage III Acute respiratory failure with hypoxia and hypercapnia Non-ST elevation IN (NSTEMI) Pulmonary edema Shortness of breath Past Family History Family History Other Family history non-contributory Past Surgical History Surgical History Hx of colonoscopy Hx of repair of rotator cuff History of carpal tunnel surgery Social History Smoking Status: Former smoker Hx Alcohol Use: No Hx Substance Use: No Physical Exam Vital Signs Last Vital Signs Temp 98.6 F 08/16/25 13:59 Pulse 62 08/16/25 13:59 Resp 16 08/16/25 13:59 BP 139/57 L 08/16/25 13:59 Pulse Ox 96 08/16/25 13:59 O2 Del Method Room Air 08/16/25 13:25 Testing Laboratory Results 08/16/25 11:45 08/16/25 05:50 PT 11.1 Seconds (9.0-12.0) 08/15/25 13:20 INR 1.1 (0.9-1.1) 08/15/25 13:20 APTT 24 Seconds (21-31) 08/15/25 13:20 Urine Color Dark Yellow 08/16/25 Unknown Urine Appearance Turbid (Clear) A 08/16/25 Unknown Urine pH 5.0 (4.5-7.5) 08/16/25 Unknown Ur Specific [place] 1.027 (1.000-1.030) 08/16/25 Unknown Urine Protein 2+ (Negative) H 08/16/25 Unknown Urine Glucose (UA) Negative (Negative) 08/16/25 Unknown Urine Ketones Trace (Negative) H 08/16/25 Unknown Urine Nitrite Negative (Negative) 08/16/25 Unknown Ur Leukocyte Esterase 2+ (Negative) H 08/16/25 Unknown Urine WBC (Auto) >50 /hpf (0-5) H 08/16/25 Unknown Urine RBC (Auto) >20 /hpf (0-2) H 08/16/25 Unknown U Hyaline Cast (Auto) 0-2 /lpf (0-2) 08/16/25 Unknown U Epithel Cells (Auto) 6-10 /hpf (0-2) H 08/16/25 Unknown Urine Bacteria (Auto) 1+ (None Seen) H 08/16/25 Unknown Blood Type O Positive 08/15/25 17:04 Antibody Screen NEGATIVE 08/15/25 17:04
[2025-08-16] MEDS: TRANEXAMIC ACID / 0.7% NACL 1,000 MG/100 ML BAG IV SCH ×2 (14:58→17:30)
[2025-08-16] MEDS ORDERED: ROCURONIUM BROMIDE 10 MG/ML 5 ML VIAL IV ONE ×2 (15:06→16:12)
[2025-08-16] MEDS ORDERED: PHENYLEPHRINE 100MCG/ML 5ML SYR ONE (15:41)
[2025-08-16] MEDS ORDERED: PHENYLEPHRINE HCL 10 MG/ML VIAL ONE (15:41)
[2025-08-16] MEDS ORDERED: SUGAMMADEX SODIUM 200 MG/2 ML VIAL IV ONE (17:34)
--- NOTE | 2025-08-16 18:11 | Post Operative Brief Note ---
Immediate Post Op Note Date of Surgery August 16, 2025 Pre & Post Diagnosis Operation Date: 08/16/25 14:00 Pre-Op Diagnosis: Left intertrochanteric femur fracture Post-Op Diagnosis: Left intertrochanteric femur fracture I identified the patient and participated in the time-out.: Yes Procedure Operation Date: 08/16/25 14:00 Actual Procedures p Left Troch Nail(Left) - Willie Burciaga DO Surgeon Willie Burciaga DO Director Television Mayito Chery PA-C Estimated Blood Loss 200 Findings Consistent with Post-Op Diagnosis Fluids 1100cc crystalloid, 1 unit PRBC's Anesthesia Type General Regional Complications None Disposition Disposition: Recovery Room
--- NOTE | 2025-08-16 18:37 | Operative Report ---
Post Operative Report Pre & Post Diagnosis Operation Date: 08/16/25 14:00 Pre-Op Diagnosis: Left intertrochanteric femur fracture Post-Op Diagnosis: Left intertrochanteric femur fracture I identified the patient and participated in the time-out.: Yes Procedure Operation Date: 08/16/25 14:00 Actual Procedures p Left Troch Nail(Left) - Willie Burciaga DO Surgeon Willie Burciaga DO Cytometry Technologist Mayito Chery PA-C Estimated Blood Loss 200 Findings Consistent with Post-Op Diagnosis Specimens None Description of Procedure I was present for the entire case. I assisted with patient positioning, prepping, draping, retraction, suctioning, irrigation, hardware management, wound closure, dressing application. Please refer to Dr. Burciaga's procedure note for full details. I attest to the content of the Intraoperative Record and any orders documented therein. Any exceptions are noted below.
--- NOTE | 2025-08-16 18:42 | XRay Report ---
INDICATION: Postoperative evaluation TECHNIQUE: 2 views of the left femur were obtained. COMPARISON: CT of the pelvis 1 day previous. FINDINGS: Interval ORIF of the left femur with intramedullary anni and screws stabilizing the traumatic intertrochanteric fracture. There is a displaced osseous fragment of the lesser trochanter again seen. Expected postsurgical changes of the soft tissues with soft tissue air and swelling. Overlying skin echo. 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 IMPRESSION: Expected findings following interval ORIF of the left femur. Electronically signed by Byron Juan 08-16-2025 6:41 PM
--- NOTE | 2025-08-16 18:44 | Anesthesiology Progress Note ---
Date of Service August 16, 2025 Anesthesia Post Procedure Vital Signs Vital Signs: Temp Pulse Pulse Pulse Resp BP BP 08/16/25 18:35 74 13 08/16/25 18:25 72 22 08/16/25 18:15 36 C L 69 15 08/16/25 14:59 36.9 C 64 17 141/114 H 08/16/25 13:59 37 C 62 16 139/57 L 08/16/25 13:29 36.9 C 64 20 129/57 L 08/16/25 13:25 36.9 C 62 20 08/16/25 13:14 36.9 C 63 20 137/62 08/16/25 13:07 36.7 C 58 L 17 122/64 08/16/25 11:08 37 C 62 18 116/63 08/16/25 11:05 37.1 C 61 18 122/66 08/16/25 10:41 37.1 C 60 18 118/62 08/16/25 09:41 36.8 C 63 17 105/57 L 08/16/25 09:11 37 C 61 16 119/63 08/16/25 08:56 37 C 61 17 103/60 08/16/25 08:36 37.0 C 60 17 110/65 08/16/25 07:15 37.0 C 62 16 97/55 L 08/15/25 22:36 08/15/25 20:07 36.8 C 68 110/53 L 08/15/25 19:50 67 18 107/50 L 08/15/25 19:00 67 18 116/57 L BP Pulse Ox O2 Del Method O2 Flow Rate 08/16/25 18:35 146/63 H 99 Oxymask 5 08/16/25 18:25 154/77 H 99 Oxymask 5 08/16/25 18:15 142/81 H 92 Oxymask 11 08/16/25 14:59 99 08/16/25 13:59 96 08/16/25 13:29 99 08/16/25 13:25 98 Room Air 08/16/25 13:14 99 08/16/25 13:07 98 08/16/25 11:08 95 08/16/25 11:05 95 08/16/25 10:41 97 08/16/25 09:41 98 08/16/25 09:11 96 08/16/25 08:56 97 08/16/25 08:36 97 08/16/25 07:15 93 Room Air 08/15/25 22:36 Room Air 08/15/25 20:07 96 Room Air 08/15/25 19:50 97 Room Air 08/15/25 19:00 97 Pain Intensity Left Hip: Pain Intensity: 8 Transfer of Care Handoff Completed per policy Notes Mental Status: alert / awake / arousable and participated in evaluation Patient Amnestic to Procedure: Yes Nausea / Vomiting: adequately controlled Pain: adequately controlled Airway Patency, RR, SpO2: stable & adequate BP & HR: stable & adequate Hydration State: stable & adequate Anesthetic Complications: no major complications apparent and Pt Satisfied with anesthetic care
[2025-08-16 20:38] LABS: Hematocrit (blood only) 26.7 % (42.0-52.0); Hemoglobin 9.2 g/dL (14.0-18.0); Mean Corpuscular Hemoglobin 29.2 pg (25.0-34.0); Mean Corpuscular Volume 84.8 fL (80.0-100.0); Platelet Count 111 K/uL (130-400); RDW Standard Deviation 47.2 fL (36.4-46.3); Red Blood Count 3.15 M/uL (4.70-6.10); White Blood Count 17.12 K/ul (4.8-10.8)
[2025-08-16 20:45] LABS: Anion Gap 8.0 (3-11); Blood Urea Nitrogen 34.0 mg/dl (6-23); Calcium 8.1 mg/dl (8.6-10.3); Carbon Dioxide 24.0 mmol/L (21-32); Chloride 105.0 mmol/L (98-107); Creatinine Clr Calc Pharmacy 33.6 ml/min; Glucose 136.0 mg/dl (70-99(Fasting)); Potassium 5.0 mmol/L (3.5-5.1); Sodium 137.0 mmol/L (136-145)
--- NOTE | 2025-08-16 23:11 | Operative Report ---
Post Operative Report Pre & Post Diagnosis Operation Date: 08/16/25 14:00 Pre-Op Diagnosis: Left intertrochanteric femur fracture Post-Op Diagnosis: Left intertrochanteric femur fracture I identified the patient and participated in the time-out.: Yes Procedure Operation Date: 08/16/25 14:00 Actual Procedures p Left Troch Nail(Left) - Willie Burciaga DO Surgeon Willie Burciaga DO Auger Machine Offbearer Mayito Chery PA-C Estimated Blood Loss 200 Findings Consistent with Post-Op Diagnosis Specimens None Indications The patient is a 84year old male who sustained a left intertrochanteric hip fracture from a ground level fall. The patients treatment options of conservative versus surgical intervention were discussed. Since the patient was an ambulatory prior to the injury and to avoid the risks of bed sores, pulmonary complications, and to give the best chance for ambulation, I recommended surgery. The patient understands the risks of surgery, which include but are not limited to: bleeding, infection, re-operation, damage to nerves and arteries, continued pain, failure of the hardware, mal-union, non-union, DVT, and . In addition, the patient is aware of the 20-30% morbidity associated with hip fracture for up to 1 year following a hip fracture. The patient has elected to proceed with surgery closed versus open reduction internal fixation left hip fracture and the informed consent was signed. The patient understands all these instructions and explanations, all their questions have been satisfactorily addressed. Description of Procedure Mayito Chery PA-C is assisting with positioning and closure due to resident/fellow not available. IMPLANTS: 1) 12 mm 130 degree 205 mm length left TFNA troch nail (Synthes). 2) 130 mm Helical screw. 3) 5 x 42 mm Locking screw. Procedure: The patient was met in the preoperative holding area. We identified the left hip as the intended operative site. Patient and I agreed upon this. Operative site was marked with my initials. Patient was then taken to the Operating Room and placed in the supine position on the fracture table after anesthesia was administered. A multidisciplinary time-out was performed identifying my initials on the left lower limb as the correct and operative limb. Prior to the incision being made, 2 grams of intravenous Ancef and 1g TXA were given. Fluoroscopy was brought in to ensure adequate x-rays images could be obtained. Due to the patient's knee effusion we did obtain repeat x-rays of his left knee with fluoroscopy. There were no fractures seen. A reduction was performed with traction, adduction, and internal rotation of the operative limb. Once this was confirmed with biplanar fluoroscopy, the left lower extremity was prepped in the standard fashion. The trochanter was marked as was the planned incision. The planned incision prox imal to the greater trochanter was made 5 cm in length and carried down through the Tensor Fascia Hafsa and IT band to expose the tip of the greater trochanter and the starting position. A starting guide wire was placed in the appropriate position, verified with biplanar fluoroscopy, and the starting reamer was used to create the entry hole for the intermediate length implant. A long ball tipped guidewire was introduced into the femoral shaft and advanced to the distal femur. I then extended my incision another approximately 5 cm distally so that I could use a bone hook to improve reduction of the femoral neck. Using fluoroscopic guidance and keeping the tip of the instrument against bone I utilized traction to help improve fracture reduction with bone hook. I then reamed the femoral canal starting with a size 11.5 mm, progressing upwards in 1mm increments until appropriate chatter was appreciated. A size 12 mm implant was selected. The implant was then inserted over the long ball-tipped guidewire without difficulty. A second and third incision were made for placement of the helical blade and distal locking screw. These were placed through the aiming guide in the standard fashion. The Helical blade was statically locked in place. The traction was released. Final x-rays were obtained showing TAD of less than 25mm. The wounds were copiously irrigated. Hemostasis was ensured. The IT band was closed with 0 Vicryl in running fashion. The subcutaneous tissue was closed with 2-0 Vicryl in layered fashion. The skin was closed with echo. The incisions were covered with Xeroform, 4x4s, Tegaderm. The patient was transferred to his hospital bed and taken to the PACU in stable condition. The sponge and needle counts were correct. It should be noted that the patient received an additional 1 unit PRBCs intraoperatively given his repeated low hemoglobin and anticipation of intraoperative blood loss. Post-op Instructions: The patient was re-admitted to the Hospitalist service. The patient will be WBAT with a walker. The patient will be seen by PT/OT. Labs will be checked in the am. DVT prophylaxis will be with TEDs, mechanical devices and Lovenox will be started. I did request that the patient not be given Lovenox until postoperative day 2 given the significant effusion in his knee and that the swelling in his thigh. This was communicated with the hospitalist service PA. I attest to the content of the Intraoperative Record and any orders documented therein. Any exceptions are noted below.
[2025-08-17 07:12] LABS: Hematocrit (blood only) 20.9 % (42.0-52.0); Hemoglobin 7.3 g/dL (14.0-18.0); Mean Corpuscular Hemoglobin 29.6 pg (25.0-34.0); Mean Corpuscular Volume 84.6 fL (80.0-100.0); Platelet Count 104 K/uL (130-400); RDW Standard Deviation 46.9 fL (36.4-46.3); Red Blood Count 2.47 M/uL (4.70-6.10); White Blood Count 16.00 K/ul (4.8-10.8)
[2025-08-17 07:18] LABS: Anion Gap 7.0 (3-11); Blood Urea Nitrogen 38.0 mg/dl (6-23); Calcium 8.2 mg/dl (8.6-10.3); Carbon Dioxide 24.0 mmol/L (21-32); Chloride 103.0 mmol/L (98-107); Creatinine Clr Calc Pharmacy 37.9 ml/min; Glucose 129.0 mg/dl (70-99(Fasting)); Magnesium 1.8 mg/dl (1.7-2.4); Potassium 4.7 mmol/L (3.5-5.1); Sodium 134.0 mmol/L (136-145)
[2025-08-17 07:24] LABS: Immature Granulocytes # (auto) 0.06 K/uL (0.01-0.20); Immature Granulocytes % (auto) 0.4 %
[2025-08-17] MEDS ORDERED: SODIUM CHLORIDE 0.9% 100 ML IV PRN (07:51)
--- NOTE | 2025-08-17 08:19 | Fluoroscopy Report ---
FL hip LT 2-3V CLINICAL HISTORY: LT TROCH NAIL COMPARISON STUDY: 08/15/2025 FLUOROSCOPY TIME: 188 seconds FLUOROSCOPY IMAGES: 9 EXPOSURE DOSE: 89 mGy FINDINGS: Fluoroscopy was provided for left femoral gamma nail. IMPRESSION: Intraoperative fluoroscopy. ACT 112: Negative or not required by law. Electronically signed by: Liang Beverly M.D. 08/17/2025 8:18 AM
--- NOTE | 2025-08-17 09:42 | Orthopedic Progress Note ---
<Statement entered by Willie Burciaga, DO - 08/18/25 00:10> I personally saw and evaluated this patient today. He is resting comfortably in a bedside chair. He denies significant pain in his thigh or hip. He is not having any knee pain. His pain is well controlled with oral medications. He denies and chest pain, shortness of breath. He denies any numbness or tingling in his right leg. Physical exam: General: Awake, alert, NAD, Afebrile, VSS. L LE: -Sugical dressings wiht gauze and Tegaderms are clean, dry, and intact. No strikethrough is present -The thigh is swollen, but compartments are compressible. He has no pain with passive knee flexion/extension -Large knee effusion is present, but has no pain with palpation of the distal femur, tibial plateua, or patella -5/5 strength with ankle PF/DF -Sensation is intact to light touch in L4-S1 dermatomes -DP and PT pulses are 2+ -Knee ROM is at least 0-45 degrees with no pain. -Calf soft and nontender Assessment/Plan: 1. POD#1 s/p L hip closed reduction with internal fixation for IT fx -Working with PT/OT. Appreciate recommendations -WBAT L LE with Assistive device -Maintain BRANDON hose for 4 weeks post operatively -Maintain gauze and Tegaderm Dressings -Lovenox and SCD's for DVT prophylaxis. Recommend starting POD#2 due to thigh swelling and anemia. -Multimodal pain control with Tylenol, as needed oxycodone for severe breakthrough pain -Anticipate discharge to rehab when medically stable 2. L knee effusion -Likley due to contusion from fall -X rays negative -No pain with palpation and ROM -Did not have significant pain with weight bearing today -Consider CT if knee becomes painful -PA discussed aspiration, pt declined at this time 3. 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 medication DVT prophylaxis with Lovenox May need additional transfusions due to low hemoglobin Ice with easy wrap PT/OT Case management eval for placement Keep postoperative dressings in place. If they become saturated may change Will need a 2-week follow-up with Dr. Burciaga at [facility]. A message has been sent to [employer] for this With questions contact our clinic at [phone] (2) Swelling of joint, knee, left: Plan: Advised the patient that he does have a large effusion in his left knee. However, he has no pain and improved range of motion today. I told him that potentially we could aspirate the knee either in-house or in the outpatient setting. At this point he would prefer to hold off on having the knee drained. Admission and Anticipated Discharge Date Admission Date: August 15, 2025 Subjective This 84-year-old male seen day 1 status post left hip trochanteric nailing for a intra troches fracture. Patient states that he is doing very well. He states that his pain is well-controlled with p.o. pain medication. States that his knee is also swollen but the pain is much less than it was yesterday. States that he is able actually to bend at the knee. Diagnostically the patient received 3 units of packed red blood cells yesterday and his hemoglobin was up to 9.2 however this morning it is at 7.3. He may need additional transfusions. Currently he denies chest pain, shortness of breath, fever, chills, sweats, nausea, vomiting, diarrhea or numbness or tingling in his left lower extremity. Review of Systems Review of Systems: All systems reviewed & are unremarkable except as noted in Subjective Physical Exam Physical Exam: Left hip: Postoperative dressings are clean dry intact and left in place. Patient has difficulty performing active straight leg raise test. He is able to actively dorsi and plantarflex his foot. He tolerates passive leg extension. Patient experiences some slight discomfort with passive hip flexion to about 70 degrees as well as with light passive internal and external hip rotation. Left knee: Patient has a large palpable effusion which could potentially be blood. Active knee range of motion is from 0 degrees of extension to about 80 degrees of flexion. He has no discomfort with palpation over the medial or lateral joint space. His calf is soft and supple nontender to palpation. He is neurovascularly intact in the left lower extremity. Results & Data Vital Signs (Past 12 Hours) Vital Signs Temp Pulse Pulse Resp BP BP Pulse Ox 08/17/25 08:03 37.2 C 66 68 12 136/62 97 08/17/25 07:13 37.0 C 66 16 125/64 97 08/17/25 00:14 36.8 C 66 18 125/66 93 08/16/25 22:18 37 C 70 18 112/66 97 O2 Del Method 08/17/25 08:03 Room Air 08/17/25 07:13 Room Air 08/17/25 00:14 Room Air 08/16/25 22:18 Room Air Diagnostic Findings Laboratory Results WBC 16.00 K/ul (4.8-10.8) H 08/17/25 06:13 RBC 2.47 M/uL (4.70-6.10) L 08/17/25 06:13 Hgb 7.3 g/dL (14.0-18.0) L 08/17/25 06:13 Hct 20.9 % (42.0-52.0) L* 08/17/25 06:13 MCV 84.6 fL (80.0-100.0) 08/17/25 06:13 MCH 29.6 pg (25.0-34.0) 08/17/25 06:13 MCHC 34.9 g/dL (32.0-36.0) 08/17/25 06:13 RDW Std Deviation 46.9 fL (36.4-46.3) H 08/17/25 06:13 RDW Coeff of Ebony 15.3 % (11.5-14.5) H 08/17/25 06:13 Plt Count 104 K/uL (130-400) L 08/17/25 06:13 MPV 11.8 fL (9.4-12.4) 08/17/25 06:13 Immature Gran % (Auto) 0.4 % 08/17/25 06:13 Neut % (Auto) 67.2 % 08/17/25 06:13 Lymph % (Auto) 21.1 % 08/17/25 06:13 [place] % (Auto) 10.9 % 08/17/25 06:13 Eos % (Auto) 0.1 % 08/17/25 06:13 Baso % (Auto) 0.3 % 08/17/25 06:13 Neut # (Auto) 10.76 K/uL (1.40-6.50) H 08/17/25 06:13 Lymph # (Auto) 3.38 K/uL (1.20-3.40) 08/17/25 06:13 [place] # (Auto) 1.74 K/uL (0.11-0.59) H 08/17/25 06:13 Eos # (Auto) 0.02 K/uL (0.00-0.50) 08/17/25 06:13 Baso # (Auto) 0.04 K/uL (0.00-0.20) 08/17/25 06:13 Immature Gran # (Auto) 0.06 K/uL (0.01-0.20) 08/17/25 06:13 Polychromasia 1+ 08/16/25 05:50 PT 11.1 Seconds (9.0-12.0) 08/15/25 13:20 INR 1.1 (0.9-1.1) 08/15/25 13:20 APTT 24 Seconds (21-31) 08/15/25 13:20 PTT Ratio 0.9 08/15/25 13:20 Sodium 134 mmol/L (136-145) L 08/17/25 06:13 Potassium 4.7 mmol/L (3.5-5.1) 08/17/25 06:13 Chloride 103 mmol/L (98-107) 08/17/25 06:13 Carbon Dioxide 24 mmol/L (21-32) 08/17/25 06:13 Anion Gap 7 (3-11) 08/17/25 06:13 BUN 38 mg/dl (6-23) H 08/17/25 06:13 Creatinine 1.65 mg/dl (0.6-1.4) H 08/17/25 06:13 Est Cr Clr Drug Dosing 37.9 ml/min 08/17/25 06:13 eGFR 41.20 08/17/25 06:13 BUN/Creatinine Ratio 23.0 (10-20) H 08/17/25 06:13 Glucose 129 mg/dl (70-99(Fasting)) H 08/17/25 06:13 Calcium 8.2 mg/dl (8.6-10.3) L 08/17/25 06:13 Phosphorus 3.2 mg/dl (2.5-4.9) 08/17/25 06:13 Magnesium 1.8 mg/dl (1.7-2.4) 08/17/25 06:13 Iron 45 mcg/dl (35-175) 08/15/25 13:20 Unsaturated IBC 194 mcg/dl (155-355) 08/17/25 06:13 Transferrin 233 mg/dl (200-360) 08/15/25 13:20 Ferritin 25.0 ng/ml (8-388) 08/15/25 13:20 Total Bilirubin 0.7 mg/dl (0.2-1.0) 08/15/25 13:20 AST 22 U/L (13-39) 08/15/25 13:20 ALT 13 U/L (7-52) 08/15/25 13:20 Alkaline Phosphatase 105 U/L (34-104) H 08/15/25 13:20 Total Creatine Kinase 190 U/L (30-223) 08/16/25 05:50 Total Protein 6.5 gm/dl (6.0-8.3) 08/15/25 13:20 Albumin 3.6 gm/dl (3.4-5.0) 08/15/25 13:20 Globulin 2.9 gm/dl (2.5-4.0) 08/15/25 13:20 Albumin/Globulin Ratio 1.2 (0.9-2) 08/15/25 13:20 Vitamin B12 355 pg/ml (180-914) 08/15/25 17:04 Folate 16.93 ng/ml (>5.38) 08/15/25 17:04 Urine Color Dark Yellow 08/16/25 Unknown Urine Appearance Turbid (Clear) A 08/16/25 Unknown Urine pH 5.0 (4.5-7.5) 08/16/25 Unknown Ur Specific [place] 1.027 (1.000-1.030) 08/16/25 Unknown Urine Protein 2+ (Negative) H 08/16/25 Unknown Urine Glucose (UA) Negative (Negative) 08/16/25 Unknown Urine Ketones Trace (Negative) H 08/16/25 Unknown Urine Blood 3+ (Negative) H 08/16/25 Unknown Urine Nitrite Negative (Negative) 08/16/25 Unknown Urine Bilirubin Negative (Negative) 08/16/25 Unknown Urine Urobilinogen Negative (Negative) 08/16/25 Unknown Ur Leukocyte Esterase 2+ (Negative) H 08/16/25 Unknown Urine WBC (Auto) >50 /hpf (0-5) H 08/16/25 Unknown Urine RBC (Auto) >20 /hpf (0-2) H 08/16/25 Unknown U Hyaline Cast (Auto) 0-2 /lpf (0-2) 08/16/25 Unknown U Epithel Cells (Auto) 6-10 /hpf (0-2) H 08/16/25 Unknown Urine Bacteria (Auto) 1+ (None Seen) H 08/16/25 Unknown Urine Comment 08/16/25 Unknown Blood Type O Positive 08/15/25 17:04 Blood Type Recheck O Positive 08/16/25 05:50 Antibody Screen NEGATIVE 08/15/25 17:04 Crossmatch See Detail 08/15/25 17:04 Impressions Hip/Pelvis X-Ray 08/15/25 13:19 XR hip LT 2V w pelvis CLINICAL HISTORY: pain post fall COMPARISON: None FINDINGS: There is an acute mildly comminuted mildly displaced intertrochanteric fracture proximal left femur. There is a fracture at the proximal right femur/right greater trochanter of uncertain chronicity. No dislocation seen at the hips. No pelvic fracture seen. There are severe degenerative changes at the left hip. IMPRESSION: 1. Acute fracture proximal left femur. 2. Fracture of uncertain chronicity proximal right femur/right greater trochanter. ACT 112: Negative or not required by law. Electronically signed by: Liang Beverly M.D. 08/15/2025 3:02 PM Knee X-Ray 08/15/25 13:19 XR knee LT 1 or 2V routine CLINICAL HISTORY: pain post fall COMPARISON: None FINDINGS: There is overlying skin fold and blanket artifact. There is severe osteoarthritis. No acute fracture or dislocation seen at the left knee. IMPRESSION: No fracture seen at the left knee. ACT 112: Negative or not required by law. Electronically signed by: Liang Beverly M.D. 08/15/2025 3:04 PM Chest X-Ray 08/15/25 15:26 EXAM: Portable AP chest radiograph TECHNIQUE: AP portable radiograph of the chest was obtained. INDICATION: Shortness of breath Comparison: Chest radiograph May 24, 2023 FINDINGS: LINES and TUBES: None CARDIOVASCULAR: Cardiac silhouette is stably mildly enlarged in size. LUNGS/PLEURA: No focal consolidation identified. Chronic interstitial lung changes. No significant pleural fluid. No discernible pneumothorax. OSSEOUS/OTHER: No displaced acute osseous process identified. Unchanged elevation of the left hemidiaphragm. IMPRESSION: No radiographic evidence of acute cardiopulmonary or osseous Electronically signed by Byron Juan 08-15-2025 4:[address] 08/15/25 15:45 CT PELVIS WITHOUT CONTRAST: TECHNIQUE: Un-enhanced CT examination of the pelvis was performed. IV CONTRAST: None HISTORY: Trauma COMPARISON: Pertinent radiographs from earlier in the same day are not viewable in our system. FINDINGS: OSSEOUS STRUCTURES: Acute traumatic and comminuted intertrochanteric fractures of the left femur with impaction and varus angulation. Surrounding intramuscular hematomas. Multiple corticated osseous bodies are noted by the right femoral trochanters likely representing sequela of chronic injuries and dystrophic/heterotopic ossifications Grade 1 anterolisthesis of L5 on S1 with associated chronic pars defects URINARY BLADDER: Unremarkable REPRODUCTIVE ORGANS: Unremarkable AORTA and ILIAC ARTERIES: No aneurysmal dilatation of the visualized portion of the aorta or iliac arteries seen. LYMPH NODES: No pelvic lymph adenopathy identified. GASTROINTESTINAL: The visualized bowel is normal in caliber. PERITONEUM: No ascites is seen. No peritoneal masses seen. PELVIC WALL: No hernia is identified IMPRESSION: Acute traumatic and comminuted intertrochanteric fractures of the LEFT femur with impaction and varus angulation. Surrounding intramuscular hematomas. Multiple corticated osseous bodies are noted by the RIGHT femoral trochanters likely representing sequela of chronic injuries and dystrophic/heterotopic ossificationsThis is Electronically signed by Byron Juan 08-15-2025 5:37 PM Hip X-Ray 08/16/25 00:00 FL hip LT 2-3V CLINICAL HISTORY: LT TROCH NAIL COMPARISON STUDY: 08/15/2025 FLUOROSCOPY TIME: 188 seconds FLUOROSCOPY IMAGES: 9 EXPOSURE DOSE: 89 mGy FINDINGS: Fluoroscopy was provided for left femoral gamma nail. IMPRESSION: Intraoperative fluoroscopy. ACT 112: Negative or not required by law. Electronically signed by: Liang Beverly M.D. 08/17/2025 8:18 AM Femur X-Ray 08/16/25 18:11 INDICATION: Postoperative evaluation TECHNIQUE: 2 views of the left femur were obtained. COMPARISON: CT of the pelvis 1 day previous. FINDINGS: Interval ORIF of the left femur with intramedullary anni and screws stabilizing the traumatic intertrochanteric fracture. There is a displaced osseous fragment of the lesser trochanter again seen. Expected postsurgical changes of the soft tissues with soft tissue air and swelling. Overlying skin echo. 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 IMPRESSION: Expected findings following interval ORIF of the left femur. Electronically signed by Byron Juan 08-16-2025 6:41 PM
--- NOTE | 2025-08-17 12:39 | Hospitalist Progress Note ---
Date of Service August 17, 2025 Assessment & Plan (1) Fracture of femur, left, closed: (2) Fall: (3) CKD (chronic kidney disease), stage III: (4) CML (chronic myelocytic leukemia): (5) Acute on chronic anemia: (6) HTN (hypertension): (7) HLD (hyperlipidemia): (8) Chronic heart failure with preserved ejection fraction (HFpEF): Plan Patient is an 84y/o M with PMHx significant for CML, HTN, HLD, HFpEF, CKD stage III and BPH who presented to the ED on 08/15/25 with c/o L hip pain s/p mechanical fall. L femur XR: Acute fracture proximal left femur. Pelvis CT: Acute traumatic and comminuted intertrochanteric fractures of the LEFT femur with impaction and varus angulation. Surrounding intramuscular hematomas. Multiple corticated osseous bodies are noted by the RIGHT femoral trochanters likely representing sequela of chronic injuries and dystrophic/heterotopic ossifications. Acute L femur fracture s/p mechanical fall S/p L troch nail repair on 08/[address] Burciaga. Ortho recs: WBAT with walker assistance, as needed analgesia, ice with easy wrap, PT/OT evals. Suspect patient will require rehab placement upon DC however will await PT/OT evals. Will need a 2-week follow-up with Dr. Burciaga at [facility] >> commu nication sent regarding this. ABLA in setting of traumatic LLE intramuscular hematomas and expected intraoperative loss Large L knee joint effusion >> Could potentially be bloody vs serous component. S/p 3U PRBCs so far, received 1U intraoperatively 2/2 repeated low Hgb and anticipation of intraoperative blood loss. D/w ortho >> requesting patient not be started on Lovenox until POD #2 given significant effusion of L knee, swelling in L thigh. Hgb again downtrended to 7.3 this morning so going to transfuse another 1U PRBCs, follow repeat H/H later this afternoon. Patient with known chronic anemia in setting of CML >> on Bosulif daily. Baseline Hgb 11-12s per chart review, was 11.5 as of 03/2025. Anemia panel did reveal low normal Fe, ferritin 25; calculated TSAT 23.196 >> would likely benefit from oral Fe, will consider. Ortho did offer to aspirate his large L knee effusion however he elected to hold off on having this done as an IP since he is not having much pain with this. Acute on chronic CKD stage III, improving Slowly improving s/p IVF and transfusions, Cr 1.65 this morning (baseline 1.1- 1.2). Suspect possible ATN in setting of hypotension, blood loss and low intake. Continue to monitor and avoid nephrotoxic agents as able. CML Follows with [facility], on Bosulif daily. Baseline WBC ~11k. D/w Dr. Navarrete who recommends holding Bosulif. -It is not directly contraindicated with surgery however he suggest holding it to reduce risk of bleeding, infection and organ toxicity. -He recommends resuming the medication 1 week after his surgical wound has healed. Chronic HFpEF TTE, 04/2023: EF 55-60%, mild concentric LVH, mild aortic valve sclerosis w/o significant stenosis, mild TR, large left pleural effusion, no pericardial effusion. Takes lasix intermittently, patient reports takes every couple of months for BLE edema. Appears euvolemic to slightly dry again today on exam. Has not followed with cardiology for couple of years >> would benefit from reestablishing. HTN Per admitting provider,: "Previously patient was on lisinopril 20mg daily, metoprolol succinate 25mg daily and spironolactone 25 mg daily. Patient was unsure if he was taking these. I called [facility] pharmacy[facility], and these medications have not been filled since 2022 and 2023." BP remains low to normal. Continue to monitor BP off the above medications. HLD Continue statin therapy. DVT Prophylaxis: SCDs/TEDs only ISO above Code Status: DNR/DNI PCP: Nimco Machado MD Disposition: Awaiting PT/OT evals for routine DC planning needs Patient seen in collaboration with Dr. Araujo. Please see addendum. I spent a total of 56 minutes coordinating, documenting, and providing care for this patient excluding time spent in the performance of separately billed services or time spent by another provider/QHP. This included personally reviewing all current laboratories and imaging studies, medical reconciliation, outpatient chart review and discussion with specialists. This chart was completed in part utilizing Speech Voice Recognition Software. Grammatical errors, random word insertions, pronoun errors, and incomplete sentences are an occasional consequence of this system due to software limitations, ambient noise, and hardware issues. Any formal questions or concerns about the content, text, or information contained within the body of this dictation should be directly addressed to the provider for clarification. Admission and Anticipated Discharge Date Admission Date: August 15, 2025 Supervising Physician Co-Signing Physician Notes Pt seen and examined by me, care coordinated w/ Yahaira Allen PA-C, pls refer to her note above for further detail. Pt presents after a fall, found to have left femur fx. Underwent surgery yesterday with orthopedics. Currently pt seen sitting up in chair, he is awake, alert, able to answer appropriately. Denies any significant pain at this time. This AM Hgb down to 7.3 and pt is getting blood transfusion right now. Cr down to 1.65. Pt has a hx of CML and follows w/ Dr. Navarrete (heme/onc), baseline Hgb seems to be about 11, will cont. to closely monitor and will re-check H&H this PM. Lungs CTAB, heart sounds regular, abdomen soft, nontender. LLE with thigh and knee edema. Orthopedics following, lovenox on hold for now. MD Gayle Subjective Patient seen and examined in room W355-1. Lying down in bed. Denies any significant pain at rest. S/p L hip fracture repair yesterday. Review of Systems Review of Systems: At least ten systems reviewed and negative, except as noted in the subjective section. Physical Exam Physical Exam: General: Elderly M. NAD, laying down in bed. A&Ox3, pleasant and conversing appropriately. HEENT: Normocephalic, atraumatic. Moist mucous membranes. Respiratory: Normal respiratory effort, CTAB. Cardiovascular: RRR, normal peripheral pulses. Abdomen/GI: Normal bowel sounds, soft, nontender to palpation in all quadrants. Extremities/Musculoskeletal: + LLE proximal lateral thigh swelling, + large L knee effusion which is nontender to palpation. Postop dressings C/D/I. Neurologic: No overt focal deficits, CN's II-XI not formally tested but appear grossly intact bilaterally. Results & Data Results & Data Vital Signs (Past 12 Hours) Vital Signs Temp Pulse Pulse Pulse Resp BP BP 08/17/25 11:05 36.6 C 70 16 124/64 08/17/25 10:49 36.8 C 71 16 08/17/25 08:03 37.2 C 66 68 12 136/62 08/17/25 07:13 37.0 C 66 16 BP Pulse Ox O2 Del Method 08/17/25 11:05 97 08/17/25 10:49 126/63 99 Room Air 08/17/25 08:03 97 Room Air 08/17/25 07:13 125/64 97 Room Air Laboratory Results Short CBC 08/16/25 08/17/25 Range/Units 20:12 06:13 WBC 17.12 H 16.00 H (4.8-10.8) K/ul Hgb 9.2 L 7.3 L (14.0-18.0) g/dL Hct 26.7 L 20.9 L* (42.0-52.0) % Plt Count 111 L 104 L (130-400) K/uL BMP 08/16/25 08/17/25 20:12 06:13 Sodium 137 134 L Potassium 5.0 4.7 Chloride 105 103 Carbon Dioxide 24 24 BUN 34 H 38 H Creatinine 1.86 H 1.65 H Glucose 136 H 129 H Calcium 8.1 L 8.2 L Medications Administered Current Inpatient Medications Acetaminophen (Acetaminophen 500 Mg Tab) 1,000 mg PO Q8H ERIC Stop: 09/14/25 21:59 Last Admin: 08/17/25 05:38 Dose: 1,000 mg Atorvastatin Calcium (Atorvastatin 20 Mg Tab) 20 mg PO HS ERIC Stop: 09/14/25 21:57 Last Admin: 08/16/25 20:02 Dose: 20 mg Bisacodyl (Bisacodyl 10 Mg Supp) 10 mg W[place] DAILY PRN PRN Reason: Constipation Stop: 09/14/25 16:31 Ceftriaxone Sodium (Rocephin) 2,000 mg in 50 mls @ 100 mls/hr IV Q24H ERIC; Protocol Stop: 08/21/25 10:59 Last Infusion: 08/17/25 11:49 Dose: Infused Sodium Chloride (Nss) 100 mls @ 15 mls/hr IV .Q6H40M PRN PRN Reason: For Transfusion Duration Stop: 08/17/25 15:51 Magnesium Hydroxide (Magnesium Hydroxide Susp 30 Ml Udc) 30 ml PO DAILY PRN PRN Reason: Constipation Stop: 09/14/25 16:31 Miscellaneous (Bosutinib [Bosulif]: Order Awaiting Action) 1 each N/A QS ERIC Stop: 09/15/25 07:59 Last Admin: 08/16/25 07:48 Dose: Not Given Morphine Sulfate (Morphine Sulfate 2 Mg/Ml Carp) 2 mg IV Q3H PRN PRN Reason: Severe Pain (Scale 7, 8, 9,10) Stop: 08/29/25 16:31 Last Admin: 08/16/25 20:02 Dose: 2 mg Naloxone HCl (Naloxone Hcl 0.4 Mg/1 Ml Vial/Carp) 0.1 mg IV UD PRN PRN Reason: Opiate Overdose Stop: 09/14/25 16:31 Ondansetron HCl (Ondansetron Inj 2 Mg/Ml 2 Ml Vial) 4 mg IV Q6H PRN PRN Reason: Nausea And Vomiting Stop: 09/15/25 14:39 Oxycodone HCl (Oxycodone Hcl Ir 5 Mg Tab (Immediate Release)) 5 mg PO Q4H PRN PRN Reason: MODERATE Pain (4,5,6) & Pre PT Stop: 08/29/25 16:31 Last Admin: 08/17/25 11:46 Dose: 5 mg Polyethylene Glycol (Polyethylene (Miralax) 17 Gm Pack) 17 gm PO DAILY PRN PRN Reason: Constipation Stop: 09/14/25 21:57 (1) Fracture of femur, left, closed Encounter type: initial encounter Femur location: intertrochanteric Fracture alignment: displaced Qualified Code(s): S72.142A - Displaced intertrochanteric fracture of left femur, initial encounter for closed fracture (2) Fall Encounter type: initial encounter Qualified Code(s): W19.XXXA - Unspecified fall, initial encounter
[2025-08-17 15:56] LABS: Hematocrit (blood only) 24.6 % (42.0-52.0); Hemoglobin 8.3 g/dL (14.0-18.0)
--- NOTE | 2025-08-17 17:10 | Communication Note ---
Date of Service: August 17, 2025 Was to be included in today's progress note: Abnormal UA UA on 08/16 with 2+ LE, >50 WBC, 1+ bacteria. Started on IV Rocephin on 08/16 >> will continue pending final urine culture results.
[2025-08-17 23:21] LABS: Hematocrit (blood only) 20.6 % (42.0-52.0); Hemoglobin 7.1 g/dL (14.0-18.0)
[2025-08-18 07:01] LABS: Hematocrit (blood only) 20.5 % (42.0-52.0); Hemoglobin 7.1 g/dL (14.0-18.0); Mean Corpuscular Hemoglobin 29.7 pg (25.0-34.0); Mean Corpuscular Volume 85.8 fL (80.0-100.0); Platelet Count 108 K/uL (130-400); RDW Standard Deviation 47.3 fL (36.4-46.3); Red Blood Count 2.39 M/uL (4.70-6.10); White Blood Count 11.01 K/ul (4.8-10.8)
[2025-08-18 07:38] LABS: Immature Granulocytes # (auto) 0.03 K/uL (0.01-0.20); Immature Granulocytes % (auto) 0.3 %; Polychromasia 1+
[2025-08-18 07:40] LABS: Anion Gap 6.0 (3-11); Blood Urea Nitrogen 31.0 mg/dl (6-23); Calcium 7.9 mg/dl (8.6-10.3); Carbon Dioxide 26.0 mmol/L (21-32); Chloride 103.0 mmol/L (98-107); Creatinine Clr Calc Pharmacy 48.1 ml/min; Glucose 119.0 mg/dl (70-99(Fasting)); Magnesium 2.0 mg/dl (1.7-2.4); Potassium 4.3 mmol/L (3.5-5.1); Sodium 135.0 mmol/L (136-145)
--- NOTE | 2025-08-18 07:46 | Orthopedic Progress Note ---
Date of Service August 18, 2025 Assessment & Plan (1) Status post-operative repair of closed hip fracture: Plan: 1. POD #2 status post left hip closed reduction with intramedullary nailing for IT fracture Weightbearing as tolerated left lower extremity with assistive device Continue multimodal pain control with Tylenol, oxycodone as needed for severe breakthrough pain DVT prophylaxis with Lovenox, this is okay to start today from an orthopedic perspective. Also continue with SCDs Ice left hip Continue physical therapy and Occupational Therapy, they are recommending rehab placement Case management working on placement Maintain postoperative gauze with Tegaderm dressings. These may be changed if they become significantly saturated. Follow-up with Dr. Burciaga 2 weeks postoperatively, appointment details and discharge instructions. 2. Anemia Anemia is multifactorial, likely dilutional, blood loss related, and does have chronic anemia with his CML -Recommend saline locking IV when taking enough PO fluids No chest pain or shortness of breath, has not been hypotensive. Hemoglobin stable at 7.1 this morning Status post 4 units PRBCs Will defer additional transfusion ordering to medicine team 3. Left knee effusion Likely secondary to contusion from fall X-rays negative Continues to be pain-free with palpation and range of motion of the knee Did not have significant pain with weightbearing on 08/[address] of the knee if he becomes acutely painful with weightbearing and ambulation Patient declining aspiration at this time. Continue to monitor. Effusion slightly smaller today than previous day. 4. Urinary tract infection Started on Rocephin per medicine 5.other medical comorbidities: CKD, HLD, HTN, heart failure, CML Management per medicine, continue to monitor. Admission and Anticipated Discharge Date Admission Date: August 15, 2025 Subjective I personally saw and evaluated the patient at bedside today. He is resting comfortably. He is sleeping at my arrival. He awakens easily. His pain is well-controlled. He denies any chest pain or shortness of breath. Tolerated sitting up in the chair well yesterday as well as some ambulation with therapy. Physical Exam Physical Exam: General: Patient awakens easily to verbal stimulus, he is alert, he is in no acute distress. He is afebrile and his vital signs are stable. Musculoskeletal: Left lower extremity: Surgical dressings about the incisions on the lateral aspect of the hip and thigh are clean, dry, and intact with gauze and Tegaderms. There is no strikethrough present. The thigh is swollen however less so than on 08/17. Compartments are soft and compressible. He has no pain with passive knee flexion and extension. The lower leg compartments are soft and compressible. There is a moderate to large knee effusion present. He has no pain with palpation of the distal femur, tibial plateau, or patella. He has no pain with passive flexion of the knee from 0 to 45 degrees. 5 out of 5 strength with ankle dorsiflexion and plantarflexion, 5 out of 5 EHL/FHL strength Sensation is intact to light touch in the L4-S1 dermatomes Calf is soft and nontender DP and PT pulses are 2+ Results & Data Vital Signs (Past 12 Hours) Vital Signs Temp Pulse Resp BP Pulse Ox O2 Del Method 08/17/25 23:26 36.9 C 71 18 120/50 L 96 Room Air
[2025-08-18] MEDS ORDERED: SODIUM PHOSPHATE 3 MMOL/1 ML INFUSION IV STA (07:50)
[2025-08-18] MEDS: SODIUM PHOSPHATE 9 MMOL in SODIUM CHLORIDE 0.9% 250 ML IV ONE (08:38)
[2025-08-18] MEDS: ADVANCED PROBIOTIC 625 MG CAPSULE PO SCH (08:38)
[2025-08-18] MEDS ORDERED: SODIUM CHLORIDE 0.9% 100 ML IV PRN (10:00)
--- NOTE | 2025-08-18 11:38 | Hospitalist Progress Note ---
Date of Service August 18, 2025 Assessment & Plan (1) Fracture of femur, left, closed: (2) Fall: (3) CKD (chronic kidney disease), stage III: (4) CML (chronic myelocytic leukemia): (5) Acute on chronic anemia: (6) HTN (hypertension): (7) HLD (hyperlipidemia): (8) Chronic heart failure with preserved ejection fraction (HFpEF): Plan Patient is an 84y/o M with PMHx significant for CML, HTN, HLD, HFpEF, CKD stage III and BPH who presented to the ED on 08/15/25 with c/o L hip pain s/p mechanical fall. L femur XR: Acute fracture proximal left femur. Pelvis CT: Acute traumatic and comminuted intertrochanteric fractures of the LEFT femur with impaction and varus angulation. Surrounding intramuscular hematomas. Multiple corticated osseous bodies are noted by the RIGHT femoral trochanters likely representing sequela of chronic injuries and dystrophic/heterotopic ossifications. Age-related osteoporosis with current pathologic fracture, left femur, s/p mechanical fall S/p L hip closed reduction with intramedullary nailing on 08/[address] Burciaga. Ortho recs: WBAT with walker assistance, as needed analgesia, ice with easy wrap, PT/OT evals. Will need a 2-week follow-up with Dr. Burciaga at [facility] orthopedics >> communication has been sent regarding this. PT/OT recommending rehab, appreciate CM assistance with arranging this. ABLA in setting of traumatic LLE intramuscular hematomas and expected intraoperative loss Hgb 7.1 this AM, s/p 4U PRBCs so far. Received 1U intraoperatively 2/2 repeated low Hgb and anticipation of intraoperative blood loss. Will give another 1U PRBCs this morning and monitor repeat H/H later this afternoon. Going to hold off on any chemical DVT prophylaxis for now until H/H uptrends, maintain SCDs/TEDs >> will d/w attending as well. Patient with known chronic anemia in setting of CML >> on Bosulif daily. Baseline Hgb 11-12s per chart review, was 11.5 as of 03/2025. Anemia panel did reveal low normal Fe, ferritin 25; calculated TSAT 23.196 >> would likely benefit from oral Fe, will consider. Large L knee joint effusion >> Could potentially be bloody vs serous component. Suspect traumatic 2/2 fall. Ortho did offer to aspirate his large L knee effusion however he elected to hold off on having this done as an IP since he is not having much pain with this. Per ortho >> consider CT of the knee if he becomes acutely painful with weightbearing and ambulation. Effusion does appear somewhat smaller today when compared to yesterday, continue to monitor. Acute on chronic CKD stage III, improving Continuing to improve s/p IVF and transfusions, Cr 1.3 this morning (baseline 1.1-1.2). Suspect possible ATN in setting of hypotension, blood loss and low intake. Continue to monitor and avoid nephrotoxic agents as able. Abnormal UA UA on 08/16 with 2+ LE, >50 WBC, 1+ bacteria. Empirically was started on IV Rocephin on 08/16. Final urine culture grew Gram negative bacilli, NO sensitivities to follow. Continue IV Rocephin for now. Will consider transition to po ABX tomorrow, possibly cipro >> will d/w attending. CML Follows with [facility], on Bosulif daily. Baseline WBC ~11k. D/w Dr. Navarrete who recommends holding Bosulif. -It is not directly contraindicated with surgery however he suggest holding it to reduce risk of bleeding, infection and organ toxicity. -He recommends resuming the medication 1 week after his surgical wound has healed. Chronic HFpEF TTE, 04/2023: EF 55-60%, mild concentric LVH, mild aortic valve sclerosis w/o significant stenosis, mild TR, large left pleural effusion, no pericardial effusion. Takes lasix intermittently, patient reports takes every couple of months for BLE edema. Appears euvolemic today on exam. Has not followed with cardiology for couple of years >> would benefit from reestablishing. HTN Per admitting provider,: "Previously patient was on lisinopril 20mg daily, metoprolol succinate 25mg daily and spironolactone 25 mg daily. Patient was uns ure if he was taking these. I called [facility], and these medications have not been filled since 2022 and 2023." BP remains low to normal. Continue to monitor BP off the above medications. HLD Continue statin therapy. DVT Prophylaxis: SCDs/TEDs only ISO anemia Code Status: DNR/DNI PCP: Nimco Machado MD Disposition: Not yet medically stable for DC, still requiring PRBC transfusions. Possible DC to rehab in the next 1-2 days depending on H/H trend, ? [facility]. Patient seen in collaboration with Dr. Araujo. Please see addendum. I spent a total of 50 minutes coordinating, documenting, and providing care for this patient excluding time spent in the performance of separately billed services or time spent by another provider/QHP. This included personally reviewing all current laboratories and imaging studies, medical reconciliation, outpatient chart review and discussion with specialists. This chart was completed in part utilizing Speech Voice Recognition Software. Grammatical errors, random word insertions, pronoun errors, and incomplete sentences are an occasional consequence of this system due to software limitations, ambient noise, and hardware issues. Any formal questions or concerns about the content, text, or information contained within the body of this dictation should be directly addressed to the provider for clarification. Admission and Anticipated Discharge Date Admission Date: August 15, 2025 Supervising Physician Co-Signing Physician Notes Pt seen and examined by me, care coordinated w/ Yahaira Allen PA-C, pls refer to her note above for further detail. Pt presents after a fall, found to have left femur fx. Underwent surgery with orthopedics. Currently pt seen lying in bed in NAD, he is awake, alert, able to answer appropriately. Denies any significant pain at this time. This AM Hgb down to 7.1. Plan for another blood transfusion today. Cr down to 1.3. Pt has a hx of CML and follows w/ Dr. Navarrete (heme/onc), baseline Hgb seems to be about 11, will cont. to closely monitor his H&H. Lungs CTAB, heart sounds regular, abdomen soft, nontender. LLE with thigh and knee edema/ knee effusion. Orthopedics following, lovenox on hold for now. MD Gayle Subjective Patient seen and examined in room W355-1. Resting comfortably. Feeling well this morning, pain well-controlled. Offers no major complaints. Review of Systems Review of Systems: At least ten systems reviewed and negative, except as noted in the subjective section. Physical Exam Physical Exam: General: Elderly M. NAD, laying down in bed. A&Ox3, pleasant and conversing appropriately. HEENT: Normocephalic, atraumatic. Moist mucous membranes. Respiratory: Normal respiratory effort, CTAB. Cardiovascular: RRR, normal peripheral pulses. Abdomen/GI: Normal bowel sounds, soft, nontender to palpation in all quadrants. Extremities/Musculoskeletal: + LLE proximal lateral thigh swelling, + large L knee effusion which is nontender to palpation (slightly smaller today). Postop dressings C/D/I. Neurologic: No overt focal deficits, CN's II-XI not formally tested but appear grossly intact bilaterally. Results & Data Results & Data Vital Signs (Past 12 Hours) Vital Signs Temp Pulse Resp BP Pulse Ox O2 Del Method 08/18/25 07:30 37.0 C 70 16 126/65 97 Room Air Laboratory Results Short CBC 08/17/25 08/17/25 08/18/25 Range/Units 15:41 22:53 06:39 WBC 11.01 H (4.8-10.8) K/ul Hgb 8.3 L 7.1 L 7.1 L (14.0-18.0) g/dL Hct 24.6 L 20.6 L* 20.5 L* (42.0-52.0) % Plt Count 108 L (130-400) K/uL BMP 08/18/25 06:39 Sodium 135 L Potassium 4.3 Chloride 103 Carbon Dioxide 26 BUN 31 H Creatinine 1.30 D Glucose 119 H Calcium 7.9 L Medications Administered Current Inpatient Medications Acetaminophen (Acetaminophen 500 Mg Tab) 1,000 mg PO Q8H ERIC Stop: 09/14/25 21:59 Last Admin: 08/18/25 05:38 Dose: Not Given Atorvastatin Calcium (Atorvastatin 20 Mg Tab) 20 mg PO HS ERIC Stop: 09/14/25 21:57 Last Admin: 08/17/25 20:52 Dose: 20 mg Bisacodyl (Bisacodyl 10 Mg Supp) 10 mg ID DAILY PRN PRN Reason: Constipation Stop: 09/14/25 16:31 Ceftriaxone Sodium (Rocephin) 2,000 mg in 50 mls @ 100 mls/hr IV Q24H ERIC; Protocol Stop: 08/21/25 10:59 Last Infusion: 08/18/25 11:52 Dose: Infused Sodium Chloride (Nss) 100 mls @ 15 mls/hr IV .Q6H40M PRN PRN Reason: For Transfusion Duration Stop: 08/18/25 18:00 Lactobacillus Acidophilus (Advanced Probiotic 625 Mg Capsule) 1,250 mg PO DAILY [facility] Stop: 09/17/25 08:59 Last Admin: 08/18/25 08:38 Dose: 1,250 mg Magnesium Hydroxide (Magnesium Hydroxide Susp 30 Ml Udc) 30 ml PO DAILY PRN PRN Reason: Constipation Stop: 09/14/25 16:31 Miscellaneous (Bosutinib [Bosulif]: Order Awaiting Action) 1 each N/A QS [facility] Stop: 09/15/25 07:59 Last Admin: 08/16/25 07:48 Dose: Not Given Morphine Sulfate (Morphine Sulfate 2 Mg/Ml Carp) 2 mg IV Q3H PRN PRN Reason: Severe Pain (Scale 7, 8, 9,10) Stop: 08/29/25 16:31 Last Admin: 08/16/25 20:02 Dose: 2 mg Naloxone HCl (Naloxone Hcl 0.4 Mg/1 Ml Vial/Carp) 0.1 mg IV UD PRN PRN Reason: Opiate Overdose Stop: 09/14/25 16:31 Ondansetron HCl (Ondansetron Inj 2 Mg/Ml 2 Ml Vial) 4 mg IV Q6H PRN PRN Reason: Nausea And Vomiting Stop: 09/15/25 14:39 Oxycodone HCl (Oxycodone Hcl Ir 5 Mg Tab (Immediate Release)) 5 mg PO Q4H PRN PRN Reason: MODERATE Pain (4,5,6) & Pre PT Stop: 08/29/25 16:31 Last Admin: 08/17/25 11:46 Dose: 5 mg Polyethylene Glycol (Polyethylene (Miralax) 17 Gm Pack) 17 gm PO DAILY PRN PRN Reason: Constipation Stop: 09/14/25 21:57 (1) Fracture of femur, left, closed Encounter type: initial encounter Femur location: intertrochanteric Fracture alignment: displaced Qualified Code(s): S72.142A - Displaced intertrochanteric fracture of left femur, initial encounter for closed fracture (2) Fall Encounter type: initial encounter Qualified Code(s): W19.XXXA - Unspecified fall, initial encounter
--- NOTE | 2025-08-18 14:34 | XRay Report ---
Frontal images of the chest Comparison made to prior exam dated 08/15/2025 Impression No acute pulmonary pathology. Degenerativechanges left shoulder. Electronically signed by Jesus Alberto Phipps 08-18-2025 2:30 PM
--- NOTE | 2025-08-18 14:51 | Communication Note ---
Date of Service: August 18, 2025 1U PRBCs ordered for today. Upon chart review, did have documented temperature of 37.7oC prior to the transfusion being started. Case discussed via TT with RN. Temperature was rechecked 30min after starting transfusion and was recorded as 37.1oC. CXR was ordered >> personally reviewed and grossly unremarkable. LLE venous doppler ordered and pending. Repeat temperature checks within normal parameters. Pt tolerating transfusion without issue, no indication to stop the transfusion.
[2025-08-18 16:50] LABS: Hematocrit (blood only) 20.8 % (42.0-52.0); Hemoglobin 7.2 g/dL (14.0-18.0)
--- NOTE | 2025-08-18 17:05 | Communication Note ---
Date of Service: August 18, 2025 S/p 5U PRBCs so far this admission without significant improvement in anemia, Hgb still trending in the low 7s. Pt remains clinically stable however need to r/o active bleeding in the LLE, especially given his prior intramuscular hematomas. CT LLE with contrast pending >> RN updated via TT. Also will check BLE venous duplex US.
--- NOTE | 2025-08-18 21:03 | Ultrasound Report ---
DVT ULTRASOUND BILATERAL LOWER EXTREMITY INDICATION: Pain TECHNIQUE: Grayscale and color Doppler evaluation of the BILATERAL femoral-popliteal venous system was performed. A duplex Doppler study was performed, consisting of integrated two-dimensional (2D) real-time imaging: Color flow Doppler and Doppler spectral analysis. COMPARISON: FINDINGS: RIGHT common femoral, femoral and popliteal veins: Normal compressibility, color flow, respiratory variation. No intraluminal echogenic material. There is a popliteal fossa Romano's cyst measuring 6.7 x 2.6 x 2.5 cm. LEFT common femoral, femoral and popliteal veins: Normal compressibility, color flow, respiratory variation. No intraluminal echogenic material. There is a popliteal fossa Romano's cyst measuring 6.9 x 2.0 x 1.8 cm. IMPRESSION: No evidence of deep venous thrombus in bilateral femoral-popliteal venous systems. Bilateral popliteal fossa Romano's cysts. Electronically signed by Byron Juan 08-18-2025 9:03 PM
[2025-08-18] MEDS: OPTIRAY 320 100ml IV ONE (22:20)
[2025-08-18 23:44] LABS: Hematocrit (blood only) 22.8 % (42.0-52.0); Hemoglobin 7.7 g/dL (14.0-18.0)
--- NOTE | 2025-08-19 00:05 | CT Scan Report ---
Exam(s): CT EXTREMITY LEFT LOWER With Contrast IV Amt: 93cc opti 320 EXAM: CT Left Lower Extremity With Intravenous Contrast CLINICAL HISTORY: Reason for exam: Persistent anemia, r/o bleed. TECHNIQUE: Axial computed tomography images of the left lower extremity with intravenous contrast. CTDI is 10.94 mGy and DLP is 1121.67 mGy-cm. Automated exposure control was utilized for the study. A dose lowering technique was utilized adhering to the principles of ALARA. CONTRAST: Patient received 93cc opti 320 of IV contrast COMPARISON: No relevant prior studies available. FINDINGS: Bones/joints: postoperative changes ORIF left intertrochanteric hip fracture. Soft tissue swelling and inflammatory changes about the left hip neither expected given patient's recent operative state. No dislocation. Soft tissues: See above. Other findings: No evidence of contrast extravasation identified on this exam. IMPRESSION: No acute findings in the left lower extremity. Electronically signed by: Jesus Alberto Phipps MD 08/19/25 00:05 AM
--- NOTE | 2025-08-19 00:06 | CT Scan Report ---
Exam(s): CT EXTREMITY LEFT LOWER With Contrast IV Amt: 93cc opti 320 EXAM: CT Left Lower Extremity With Intravenous Contrast CLINICAL HISTORY: Reason for exam: Persistent anemia, r/o bleed. TECHNIQUE: Axial computed tomography images of the left lower extremity with intravenous contrast. Automated exposure control was utilized for the study. A dose lowering technique was utilized adhering to the principles of ALARA. CONTRAST: Patient received 93cc opti 320 of IV contrast COMPARISON: No relevant prior studies available. FINDINGS: Bones/joints: Unremarkable. No acute fracture. No dislocation. Soft tissues: Unremarkable. No abnormal contrast enhancement. IMPRESSION: Normal left lower extremity CT. Electronically signed by: Jesus Alberto Phipps MD 08/19/25 00:05 AM
[2025-08-19 07:19] LABS: Hematocrit (blood only) 22.6 % (42.0-52.0); Hemoglobin 7.3 g/dL (14.0-18.0); Mean Corpuscular Hemoglobin 28.5 pg (25.0-34.0); Mean Corpuscular Volume 88.3 fL (80.0-100.0); Platelet Count 133 K/uL (130-400); RDW Standard Deviation 49.5 fL (36.4-46.3); Red Blood Count 2.56 M/uL (4.70-6.10); White Blood Count 7.97 K/ul (4.8-10.8)
[2025-08-19 07:36] LABS: Anion Gap 5.0 (3-11); Blood Urea Nitrogen 21.0 mg/dl (6-23); Calcium 7.7 mg/dl (8.6-10.3); Carbon Dioxide 25.0 mmol/L (21-32); Chloride 105.0 mmol/L (98-107); Creatinine Clr Calc Pharmacy 62.5 ml/min; Glucose 113.0 mg/dl (70-99(Fasting)); Magnesium 2.0 mg/dl (1.7-2.4); Potassium 3.9 mmol/L (3.5-5.1); Sodium 135.0 mmol/L (136-145)
--- NOTE | 2025-08-19 08:13 | Hospitalist Progress Note ---
Date of Service August 19, 2025 Assessment & Plan (1) Fracture of femur, left, closed: (2) Fall: (3) CKD (chronic kidney disease), stage III: (4) CML (chronic myelocytic leukemia): (5) Acute on chronic anemia: (6) HTN (hypertension): (7) HLD (hyperlipidemia): (8) Chronic heart failure with preserved ejection fraction (HFpEF): Plan Patient is an 84y/o M with PMHx significant for CML, HTN, HLD, HFpEF, CKD stage III and BPH who presented to the ED on 08/15/25 with c/o L hip pain s/p mechanical fall. L femur XR: Acute fracture proximal left femur. Pelvis CT: Acute traumatic and comminuted intertrochanteric fractures of the LEFT femur with impaction and varus angulation. Surrounding intramuscular hematomas. Multiple corticated osseous bodies are noted by the RIGHT femoral trochanters likely representing sequela of chronic injuries and dystrophic/heterotopic ossifications. Age-related osteoporosis with current pathologic fracture, left femur, s/p mechanical fall S/p L hip closed reduction with intramedullary nailing on 08/[address] Burciaga. Ortho recs: WBAT with walker assistance, as needed analgesia, ice with easy wrap, PT/OT evals. Will need a 2-week follow-up with Dr. Burciaga at [facility] orthopedics >> communication has been sent regarding this. PT/OT recommending rehab, appreciate CM assistance with arranging this >> [facility]. ABLA in setting of traumatic LLE intramuscular hematomas and expected intraoperative loss Hgb 7.3 this AM s/p 5U PRBCs so far this hospitalization (3U on 08/16, 1U on 08/17, 1U on 08/18). Did rescan LLE with CT last evening as Hgb not greatly improving which ultimately came back unremarkable, no evidence of active bleeding. Pt remains clinically stable despite this and grossly asymptomatic. Anemia is multifactorial >> dilutional component, blood loss related (EBL: 200cc). Patient with known chronic anemia in setting of CML >> on Bosulif daily. Baseline Hgb 11-12s per chart review, was 11.5 as of 03/2025. Will recheck H/H later this afternoon and hold off on additional transfusions for now as there is no s/sx of active bleeding. Anemia panel did reveal low normal Fe, ferritin 25; calculated TSAT 23.196 >> would likely benefit from oral Fe, ? consifer IV Venofer. Large L knee joint effusion >> Could potentially be bloody vs serous component. Suspect traumatic 2/2 fall. Ortho did offer to aspirate his large L knee effusion however he elected to hold off on having this done as an IP since he is not having any pain with this. Effusion does appear to be improving somewhat compared to days prior. Penile swelling Made aware by RN later this morning that the pt's penis is swollen with some redness around the glans. Also noted to have some scrotal bruising and swelling. Pt denying any pain with this. Byrne cath remains functioning without issue, no PVR on bladder scan. Will check scrotal US. Scrotal elevation/support ordered. Will also give a small dose of IV Lasix as all the IVF he received could be contributing, 20mg IV. Acute on chronic CKD stage III, resolved Cr improved s/p IVF and transfusions, Cr 1.0 this morning (baseline 1.1-1.2). Suspect was 2/2 possible ATN in setting of hypotension, blood loss and low intake. Continue to monitor and avoid nephrotoxic agents as able. Abnormal UA UA on 08/16 with 2+ LE, >50 WBC, 1+ bacteria. Empirically was started on IV Rocephin on 08/16. Final urine culture grew Gram negative bacilli, NO sensitivities to follow. Continue IV Rocephin for now (day 4) >> will d/w attending regarding transition to po ABX, length of treatment. CML Follows with [facility], on Bosulif daily. Baseline WBC ~11k. D/w Dr. Navarrete who recommends holding Bosulif. -It is not directly contraindicated with surgery however he suggest holding it to reduce risk of bleeding, infection and organ toxicity. -He recommends resuming the medication 1 week after his surgical wound has healed. Chronic HFpEF TTE, 04/2023: EF 55-60%, mild concentric LVH, mild aortic valve sclerosis w/o significant stenosis, mild TR, large left pleural effusion, no pericardial effusion. Takes lasix intermittently, patient reports takes every couple of months for BLE edema. Small dose of IV Lasix ordered for today, as per above. Has not followed with cardiology for couple of years >> would benefit from reestablishing. HTN Per admitting provider,: "Previously patient was on lisinopril 20mg daily, metoprolol succinate 25mg daily and spironolactone 25 mg daily. Patient was unsure if he was taking these. I called his pharmacy[facility], and these medications have not been filled since 2022 and 2023." BP remains low to normal. Continue to monitor BP off the above medications. HLD Continue statin therapy. DVT Prophylaxis: SCDs/TEDs Clear for DVT prophylaxis per ortho standpoint; if repeat H/H stable this afternoon, will consider initiating SQ Lovenox. Code Status: DNR/DNI PCP: Nimco Machado MD Disposition: Possible DC to [facility] in the next 1-2 days if H/H remains stable, d/w CM. Patient seen in collaboration with Dr. Araujo. Please see addendum. I spent a total of 50 minutes coordinating, documenting, and providing care for this patient excluding time spent in the performance of separately billed services or time spent by another provider/QHP. This included personally reviewing all current laboratories and imaging studies, medical reconciliation, outpatient chart review and discussion with specialists. This chart was completed in part utilizing Speech Voice Recognition Software. Grammatical errors, random word insertions, pronoun errors, and incomplete sentences are an occasional consequence of this system due to software limitations, ambient noise, and hardware issues. Any formal questions or concerns about the content, text, or information contained within the body of this dictation should be directly addressed to the provider for clarification. Admission and Anticipated Discharge Date Admission Date: August 15, 2025 Supervising Physician Co-Signing Physician Notes Pt seen and examined by nd, care coordinated w/ B. PHOEBE Allen, pls refer to her note above for further detail. Pt presents after a fall, found to have left femur fx. Underwent surgery with orthopedics. Currently pt seen lying in bed in NAD, he is awake, alert, able to answer appropriately. Denies any significant pain at this time. Continues to have thigh edema and knee edema (effusion). This AM pt also with scrotal/penile edema. Hgb continues to b down ~7. Dopplers obtained yesterday as well as CT of LLE. Lungs CTAB, heart sounds regular, abdomen soft, nontender. Orthopedics following. Given edema, and BP much improved/ elevated, will give small dose lasix, will provide scrotal support/elevation, obtain scrotal US. MD Gayle Subjective Patient is seen and examined in room W355-1. Tired but overall feeling well, offers no major complaints. 2-person assist with walker OOB, mentions he ambulated the hallways yesterday with PT/OT. Review of Systems Review of Systems: At least ten systems reviewed and negative, except as noted in the subjective section. Physical Exam Physical Exam: General: Elderly M. NAD, laying down in bed. A&Ox3, pleasant and conversing appropriately. HEENT: Normocephalic, atraumatic. Moist mucous membranes. Respiratory: Normal respiratory effort, CTAB. Cardiovascular: RRR, normal peripheral pulses. Abdomen/GI: Normal bowel sounds, soft, nontender to palpation in all quadrants. : Byrne catheter intact and draining yellow urine output. Extremities/Musculoskeletal: + LLE proximal lateral thigh swelling (improving), + large L knee effusion which is nontender to palpation. Postop dressings C/D/I on L hip. Neurologic: No overt focal deficits, CN's II-XI not formally tested but appear grossly intact bilaterally. Results & Data Results & Data Vital Signs (Past 12 Hours) Vital Signs Temp Pulse Resp BP Pulse Ox O2 Del Method 08/18/25 22:54 37.0 C 64 18 144/56 H 98 Room Air Laboratory Results Short CBC 08/18/25 08/18/25 08/19/25 Range/Units 15:48 22:32 06:18 WBC 7.97 (4.8-10.8) K/ul Hgb 7.2 L 7.7 L 7.3 L (14.0-18.0) g/dL Hct 20.8 L* 22.8 L 22.6 L (42.0-52.0) % Plt Count 133 (130-400) K/uL BMP 08/19/25 06:18 Sodium 135 L Potassium 3.9 Chloride 105 Carbon Dioxide 25 BUN 21 Creatinine 1.00 D Glucose 113 H Calcium 7.7 L Diagnostic Findings Femur X-Ray 08/15/25 13:19 XR femur LT 2V routine CLINICAL HISTORY: pain post fall COMPARISON: None FINDINGS: There is an acute mildly displaced mildly comminuted intertrochanteric fracture proximal left femur. There is blanket artifact at the distal femur. No other fracture or dislocation seen of the left femur. 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 IMPRESSION: Acute fracture proximal left femur. ACT 112: Negative or not required by law. Electronically signed by: Liang Beverly M.D. 08/15/2025 3:03 PM Hip/Pelvis X-Ray 08/15/25 13:19 XR hip LT 2V w pelvis CLINICAL HISTORY: pain post fall COMPARISON: None FINDINGS: There is an acute mildly comminuted mildly displaced intertrochanteric fracture proximal left femur. There is a fracture at the proximal right femur/right greater trochanter of uncertain chronicity. No dislocation seen at the hips. No pelvic fracture seen. There are severe degenerative changes at the left hip. IMPRESSION: 1. Acute fracture proximal left femur. 2. Fracture of uncertain chronicity proximal right femur/right greater trochante r. ACT 112: Negative or not required by law. Electronically signed by: Liang Beverly M.D. 08/15/2025 3:02 PM Knee X-Ray 08/15/25 13:19 XR knee LT 1 or 2V routine CLINICAL HISTORY: pain post fall COMPARISON: None FINDINGS: There is overlying skin fold and blanket artifact. There is severe osteoarthritis. No acute fracture or dislocation seen at the left knee. IMPRESSION: No fracture seen at the left knee. ACT 112: Negative or not required by law. Electronically signed by: Liang Beverly M.D. 08/15/2025 3:04 PM Chest X-Ray 08/15/25 15:26 EXAM: Portable AP chest radiograph TECHNIQUE: AP portable radiograph of the chest was obtained. INDICATION: Shortness of breath Comparison: Chest radiograph May 24, 2023 FINDINGS: LINES and TUBES: None CARDIOVASCULAR: Cardiac silhouette is stably mildly enlarged in size. LUNGS/PLEURA: No focal consolidation identified. Chronic interstitial lung changes. No significant pleural fluid. No discernible pneumothorax. OSSEOUS/OTHER: No displaced acute osseous process identified. Unchanged elevation of the left hemidiaphragm. IMPRESSION: No radiographic evidence of acute cardiopulmonary or osseous Electronically signed by Byron Juan 08-15-2025 4:[address] 08/15/25 15:45 CT PELVIS WITHOUT CONTRAST: TECHNIQUE: Un-enhanced CT examination of the pelvis was performed. IV CONTRAST: None HISTORY: Trauma COMPARISON: Pertinent radiographs from earlier in the same day are not viewable in our system. FINDINGS: OSSEOUS STRUCTURES: Acute traumatic and comminuted intertrochanteric fractures of the left femur with impaction and varus angulation. Surrounding intramuscular hematomas. Multiple corticated osseous bodies are noted by the right femoral trochanters likely representing sequela of chronic injuries and dystrophic/heterotopic ossifications Grade 1 anterolisthesis of L5 on S1 with associated chronic pars defects URINARY BLADDER: Unremarkable REPRODUCTIVE ORGANS: Unremarkable AORTA and ILIAC ARTERIES: No aneurysmal dilatation of the visualized portion of the aorta or iliac arteries seen. LYMPH NODES: No pelvic lymph adenopathy identified. GASTROINTESTINAL: The visualized bowel is normal in caliber. PERITONEUM: No ascites is seen. No peritoneal masses seen. PELVIC WALL: No hernia is identified IMPRESSION: Acute traumatic and comminuted intertrochanteric fractures of the LEFT femur with impaction and varus angulation. Surrounding intramuscular hematomas. Multiple corticated osseous bodies are noted by the RIGHT femoral trochanters likely representing sequela of chronic injuries and dystrophic/heterotopic ossificationsThis is Electronically signed by Byron Juan 08-15-2025 5:37 PM Hip X-Ray 08/16/25 00:00 FL hip LT 2-3V CLINICAL HISTORY: LT TROCH NAIL COMPARISON STUDY: 08/15/2025 FLUOROSCOPY TIME: 188 seconds FLUOROSCOPY IMAGES: 9 EXPOSURE DOSE: 89 mGy FINDINGS: Fluoroscopy was provided for left femoral gamma nail. IMPRESSION: Intraoperative fluoroscopy. ACT 112: Negative or not required by law. Electronically signed by: iLang Beverly M.D. 08/17/2025 8:18 AM Femur X-Ray 08/16/25 18:11 INDICATION: Postoperative evaluation TECHNIQUE: 2 views of the left femur were obtained. COMPARISON: CT of the pelvis 1 day previous. FINDINGS: Interval ORIF of the left femur with intramedullary anni and screws stabilizing the traumatic intertrochanteric fracture. There is a displaced osseous fragment of the lesser trochanter again seen. Expected postsurgical changes of the soft tissues with soft tissue air and swelling. Overlying skin echo. 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 IMPRESSION: Expected findings following interval ORIF of the left femur. Electronically signed by Byron Juan 08-16-2025 6:41 PM Chest X-Ray 08/18/25 13:06 Frontal images of the chest Comparison made to prior exam dated 08/15/2025 Impression No acute pulmonary pathology. Degenerativechanges left shoulder. Electronically signed by Jesus Alberto Phipps 08-18-2025 2:30 PM Venous Doppler Study 08/18/25 13:06 DVT ULTRASOUND BILATERAL LOWER EXTREMITY INDICATION: Pain TECHNIQUE: Grayscale and color Doppler evaluation of the BILATERAL femoral-popliteal venous system was performed. A duplex Doppler study was performed, consisting of integrated two-dimensional (2D) real-time imaging: Color flow Doppler and Doppler spectral analysis. COMPARISON: FINDINGS: RIGHT common femoral, femoral and popliteal veins: Normal compressibility, color flow, respiratory variation. No intraluminal echogenic material. There is a popliteal fossa Romano's cyst measuring 6.7 x 2.6 x 2.5 cm. LEFT common femoral, femoral and popliteal veins: Normal compressibility, color flow, respiratory variation. No intraluminal echogenic material. There is a popliteal fossa Romano's cyst measuring 6.9 x 2.0 x 1.8 cm. IMPRESSION: No evidence of deep venous thrombus in bilateral femoral-popliteal venous systems. Bilateral popliteal fossa Romano's cysts. Electronically signed by Byron Juan 08-18-2025 9:[address] 08/18/25 17:02 Exam(s): CT EXTREMITY LEFT LOWER With Contrast IV Amt: 93cc opti 320 EXAM: CT Left Lower Extremity With Intravenous Contrast CLINICAL HISTORY: Reason for exam: Persistent anemia, r/o bleed. TECHNIQUE: Axial computed tomography images of the left lower extremity with intravenous contrast. CTDI is 10.94 mGy and DLP is 1121.67 mGy-cm. Automated exposure control was utilized for the study. A dose lowering technique was utilized adhering to the principles of ALARA. CONTRAST: Patient received 93cc opti 320 of IV contrast COMPARISON: No relevant prior studies available. FINDINGS: Bones/joints: postoperative changes ORIF left intertrochanteric hip fracture. Soft tissue swelling and inflammatory changes about the left hip neither expected given patient's recent operative state. No dislocation. Soft tissues: See above. Other findings: No evidence of contrast extravasation identified on this exam. IMPRESSION: No acute findings in the left lower extremity. Electronically signed by: Jesus Alberto Phipps MD 08/19/25 00:[address] 08/18/25 17:02 Exam(s): CT EXTREMITY LEFT LOWER With Contrast IV Amt: 93cc opti 320 EXAM: CT Left Lower Extremity With Intravenous Contrast CLINICAL HISTORY: Reason for exam: Persistent anemia, r/o bleed. TECHNIQUE: Axial computed tomography images of the left lower extremity with intravenous contrast. Automated exposure control was utilized for the study. A dose lowering technique was utilized adhering to the principles of ALARA. CONTRAST: Patient received 93cc opti 320 of IV contrast COMPARISON: No relevant prior studies available. FINDINGS: Bones/joints: Unremarkable. No acute fracture. No dislocation. Soft tissues: Unremarkable. No abnormal contrast enhancement. IMPRESSION: Normal left lower extremity CT. Electronically signed by: Jesus Alberto Phipps MD 08/19/25 00:05 AM (1) Fracture of femur, left, closed Encounter type: initial encounter Femur location: intertrochanteric Fracture alignment: displaced Qualified Code(s): S72.142A - Displaced intertrochanteric fracture of left femur, initial encounter for closed fracture (2) Fall Encounter type: initial encounter Qualified Code(s): W19.XXXA - Unspecified fall, initial encounter
--- NOTE | 2025-08-19 10:17 | Orthopedic Progress Note ---
Date of Service August 19, 2025 Assessment & Plan (1) Status post-operative repair of closed hip fracture: Plan: 1. POD #3 status post left hip closed reduction with intramedullary nailing for IT fracture Patient is doing well from an orthopedic recovery perspective. His pain is controlled. He is tolerating getting up to bedside chair and doing weightbearing on the left lower extremity. Expect that he will have slow recovery given his age and underlying medical conditions. Continue weightbearing as tolerated left lower extremity with assistive device Continue multimodal pain control with Tylenol, oxycodone as needed for severe breakthrough pain. Recommend minimizing narcotic use is much as able, though if needed should be given. Continue DVT prophylaxis with Lovenox, BRANDON hose, SCDs. Continue with ice left hip Continue physical therapy and Occupational Therapy, they are continuing to recommend rehab placement Case management working on placement Maintain postoperative gauze with Tegaderm dressings. These may be changed if they become significantly saturated. At this time there is no saturation, dressing should be maintained until postoperative day 7 (08/23/2025) From an orthopedic perspective patient is doing well, once his anemia is stable and he continues to be asymptomatic from my perspective he is safe for discharge, however medically needs to be stable first. Follow-up with Dr. Burciaga 2 weeks postoperatively, appointment details and discharge instructions. 2. 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 Swelling is improving each day in the thigh. The patient denies any bloody stools. I will defer further workup to the medicine team. No chest pain or shortness of breath, has not been hypotensive. Hemoglobin 7.3 this morning. He did receive 1 unit of PRBCs yesterday (08/18/2025, he is now status post 5 units PRBCs (3 units on 08/16/2025, 1 unit on 08/17/2025, 1 unit on 08/18/2025) Will defer additional transfusion ordering to medicine team 3. Left knee effusion Improving Likely secondary to contusion from fall X-rays negative, CT scan was obtained yesterday, I personally reviewed CT scan images. Though this is not an isolated knee CT I do not appreciate any fracture or dislocation about the proximal tibia, patella, or distal femur. Continues to be pain-free with palpation and range of motion of the knee Patient declining aspiration at this time. Continue to monitor. Effusion is smaller today than previous days. 4. Urinary tract infection Rocephin per medicine Recommend discontinuing Byrne catheter as soon as possible 5.other medical comorbidities: CKD, HLD, HTN, heart failure, CML Management per medicine, continue to monitor. Admission and Anticipated Discharge Date Admission Date: August 15, 2025 Subjective The patient was seen and examined at bedside. Is resting comfortably in bed. States that he is feeling well, his left shoulder is a little bit sore he has underlying arthritis which has chronically been sore from time to time. He denies any pain about his left knee. He states that his pain in his left hip is well-controlled. He denies any calf pain. He denies any chest pain or shortness of breath. States that yesterday he tolerated getting up sitting in the bedside chair well. He is not having any dizziness when he is up. He had CT scans done yesterday of the left femur and tibia/fibula. He also had Doppler ultrasound done of the bilateral lower extremities. He denies any bloody stools. Physical Exam Physical Exam: General: Patient is awake and alert. He is resting comfortably. He is in no acute distress. He is afebrile. He is hypertensive today with blood pressure 157/63. Otherwise vital signs are stable. Musculoskeletal: Left lower extremity: Surgical dressings with Tegaderm and gauze are clean, dry, and intact about the incisions on the lateral aspect of the hip. There is no bloody strikethrough seen on the gauze. The thigh is swollen however continues to lessen when compared with previous exams on 08/17 and 08/18. His thigh compartments are soft and compressible. He has no pain with passive knee flexion and extension. His lower leg compartments are soft and compressible. There is a mild to moderate knee effusion present. The effusion is getting smaller each day. He continues to have no pain about the distal femur, tibial plateau, or patella. He has no pain with passive knee flexion up to about 90 degrees today. Patient is able to actively maintain knee extension with 4/5 strength. EHL/FHL/GS/TA motor intact with 5/5 strength Sensation is intact to light touch in the L4-S1 dermatomes Calf is soft and nontender DP and PT pulses are 2+ Results & Data Vital Signs (Past 12 Hours) Vital Signs Temp Pulse Resp BP BP Pulse Ox O2 Del Method 08/19/25 07:59 36.9 C 70 16 157/63 H 95 Room Air 08/18/25 22:54 37.0 C 64 18 144/56 H 98 Room Air Laboratory Results 08/16/25 Unknown Urine Culture - Final Urine,Clean Catch Gram negative bacilli 08/19/25 08/19/25 08/18/25 08:28 06:18 22:32 WBC 7.97 RBC 2.56 L Hgb 7.3 L 7.7 L Hct 22.6 L 22.8 L MCV 88.3 MCH 28.5 MCHC 32.3 RDW Std Deviation 49.5 H RDW Coeff of Ebony 15.6 H Plt Count 133 MPV 11.0 Sodium 135 L Potassium 3.9 Chloride 105 Carbon Dioxide 25 Anion Gap 5 BUN 21 Creatinine 1.00 D Est Cr Clr Drug Dosing 62.5 eGFR 75.14 BUN/Creatinine Ratio 21.0 H Glucose 113 H Calcium 7.7 L Ionized Calcium 1.10 L Magnesium 2.0 Blood Type Antibody Screen Crossmatch 08/18/25 08/15/25 15:48 17:04 WBC RBC Hgb 7.2 L Hct 20.8 L* MCV MCH MCHC RDW Std Deviation RDW Coeff of Ebony Plt Count MPV Sodium Potassium Chloride Carbon Dioxide Anion Gap BUN Creatinine Est Cr Clr Drug Dosing eGFR BUN/Creatinine Ratio Glucose Calcium Ionized Calcium Magnesium Blood Type O Positive Antibody Screen NEGATIVE Crossmatch See Detail Diagnostic Findings Femur CT 08/18/25 17:02 Exam(s): CT EXTREMITY LEFT LOWER With Contrast IV Amt: 93cc opti 320 EXAM: CT Left Lower Extremity With Intravenous Contrast CLINICAL HISTORY: Reason for exam: Persistent anemia, r/o bleed. TECHNIQUE: Axial computed tomography images of the left lower extremity with intravenous contrast. CTDI is 10.94 mGy and DLP is 1121.67 mGy-cm. Automated exposure control was utilized for the study. A dose lowering technique was utilized adhering to the principles of ALARA. CONTRAST: Patient received 93cc opti 320 of IV contrast COMPARISON: No relevant prior studies available. FINDINGS: Bones/joints: postoperative changes ORIF left intertrochanteric hip fracture. Soft tissue swelling and inflammatory changes about the left hip neither expected given patient's recent operative state. No dislocation. Soft tissues: See above. Other findings: No evidence of contrast extravasation identified on this exam. IMPRESSION: No acute findings in the left lower extremity. Electronically signed by: Jesus Alberto Phipps MD 08/19/25 00:[address] 08/18/25 17:02 Exam(s): CT EXTREMITY LEFT LOWER With Contrast IV Amt: 93cc opti 320 EXAM: CT Left Lower Extremity With Intravenous Contrast CLINICAL HISTORY: Reason for exam: Persistent anemia, r/o bleed. TECHNIQUE: Axial computed tomography images of the left lower extremity with intravenous contrast. Automated exposure control was utilized for the study. A dose lowering technique was utilized adhering to the principles of ALARA. CONTRAST: Patient received 93cc opti 320 of IV contrast COMPARISON: No relevant prior studies available. FINDINGS: Bones/joints: Unremarkable. No acute fracture. No dislocation. Soft tissues: Unremarkable. No abnormal contrast enhancement. IMPRESSION: Normal left lower extremity CT. Electronically signed by: Jesus Alberto Phipps MD 08/19/25 00:05 AM
[2025-08-19] MEDS: FUROSEMIDE INJ 20 MG/2 ML VIAL IV ONE (11:52)
[2025-08-19 16:56] LABS: Hematocrit (blood only) 21.0 % (42.0-52.0); Hemoglobin 7.0 g/dL (14.0-18.0)
--- NOTE | 2025-08-20 00:52 | Ultrasound Report ---
Exam(s): US SCROTAL EXAM: US Scrotum CLINICAL HISTORY: Reason for exam: Scrotal swelling. TECHNIQUE: Real-time ultrasound of the scrotum with color Doppler and image documentation. COMPARISON: No relevant prior studies available. FINDINGS: Right testicle: Unremarkable. No mass. Normal arterial and venous blood flow. Left testicle: Unremarkable. No mass. Normal arterial and venous blood flow. Epididymides: 0.3 cm left epididymal head cyst. Scrotum: Extensive scrotal edema. IMPRESSION: Extensive scrotal edema No evidence of torsion Electronically signed by: Jesus Alberto Phipps MD 08/20/25 00:51 AM
[2025-08-20 07:40] LABS: Hematocrit (blood only) 21.5 % (42.0-52.0); Hemoglobin 7.3 g/dL (14.0-18.0); Mean Corpuscular Hemoglobin 30.0 pg (25.0-34.0); Mean Corpuscular Volume 88.5 fL (80.0-100.0); Platelet Count 158 K/uL (130-400); RDW Standard Deviation 50.2 fL (36.4-46.3); Red Blood Count 2.43 M/uL (4.70-6.10); White Blood Count 7.35 K/ul (4.8-10.8)
[2025-08-20 07:59] LABS: Anion Gap 5.0 (3-11); Blood Urea Nitrogen 21.0 mg/dl (6-23); Calcium 7.9 mg/dl (8.6-10.3); Carbon Dioxide 26.0 mmol/L (21-32); Chloride 105.0 mmol/L (98-107); Creatinine Clr Calc Pharmacy 58.4 ml/min; Glucose 111.0 mg/dl (70-99(Fasting)); Magnesium 2.1 mg/dl (1.7-2.4); Potassium 4.0 mmol/L (3.5-5.1); Sodium 136.0 mmol/L (136-145)
--- NOTE | 2025-08-20 09:13 | Hospitalist Progress Note ---
Date of Service August 20, 2025 Assessment & Plan (1) Fracture of femur, left, closed: (2) Fall: (3) Acute on chronic anemia: (4) Swelling of joint, knee, left: (5) CKD (chronic kidney disease), stage III: (6) CML (chronic myelocytic leukemia): (7) HLD (hyperlipidemia): (8) Chronic heart failure with preserved ejection fraction (HFpEF): (9) UTI (urinary tract infection): (10) Vitamin D deficiency: Plan Patient is an 84y/o M with PMHx significant for CML, HTN, HLD, HFpEF, CKD stage III and BPH who presented to the ED on 08/15/25 with c/o L hip pain s/p mechanical fall and was found to have an acute intertrochanteric left femur fracture. Left intertrochanteric femur fracture s/p repair Mechanical fall Patient presenting with left hip pain after ground level fall at home Admitting left femur x-ray and pelvis CT revealed acute comminuted intertrochanteric fracture of left proximal femur POD#4 left hip closed reduction with internal fixation by Dr. Willie Burciaga on 08/16/2025 Pain is controlled with current regimen of scheduled tylenol and PRN oxycodone Orthopedics following and recommending: -Continue WBAT LLE -Continue ice -Continue Tegaderm dressing until POD#7 (08/23/2025) - change if significant saturated -Follow up with Dr. Burciaga 2 weeks postoperatively PT/OT recommending rehab - [facility]-2 days when medically stable Acute blood loss anemia Chronic anemia Baseline Hgb 11-12 per chart review Preop Hgb 9.2, EBL 200cc Hgb dropped as low as 7.0 post operatively s/p 5U PRBCs so far this hospitalization (3U on 08/16, 1U on 08/17, 1U on 08/18) Repeat CT LLE without evidence of bleeding L knee joint effusion Admitting x-ray revealed no fracture Likely secondary to contusion from fall Declined aspiration by Ortho Improving Scrotal swelling-> resolved Scrotal ultrasound revealed extensive edema s/p IV lasix 20mg yesterday 08/19 Resolved per patient Continue scrotal elevation/support LADONNA-> resolved CKD stage III Baseline creat 1.1-1.3, peaked at 2.0 Resolved s/p IVF and transfusions Avoid nephrotoxic agents as able Monitor renal function UTI UA on 08/16 with 2+ LE, >50 WBC, 1+ bacteria Final urine culture grew Gram negative bacilli, no sensitivities to follow Continue 5 day course of Rocephin ending tomorrow 08/21 Hypocalcemia Vitamin D deficiency Calcium as low as 7.7 with ionized Ca 1.10 Vitamin D level 13 Start ergocalciferol weekly x6 weeks Recommend outpatient follow up for further levels and supplement dosing CML Follows with [facility], on Bosulif daily D/w Dr. Navarrete who recommends holding Bosulif to reduce risk of bleeding, infection and organ toxicity He recommends resuming the medication 1 week after his surgical wound has healed Chronic HFpEF TTE, 04/2023: EF 55-60%, mild concentric LVH, mild aortic valve sclerosis w/o significant stenosis, mild TR, large left pleural effusion, no pericardial effusion. Received IV lasix yesterday 08/19 for scrotal swelling otherwise euvolemic Recommend follow up with Cardiology outpatient HLD Continue statin DVT Prophylaxis: SQ Lovenox Code Status: DNR/DNI PCP: Nimco Machado MD Disposition: Possible DC to [facility] in the next 1-2 days if H/H remains stable, d/w CM. Patient seen in collaboration with Dr. Araujo. Please see addendum. I spent a total of 60 minutes coordinating, documenting and providing care for this patient excluding time spent in the performance of separately billed services or time spent by another provider/QHP. Admission and Anticipated Discharge Date Admission Date: August 15, 2025 Supervising Physician Co-Signing Physician Notes Pt seen and examined by me, care coordinated w/ M. PHOEBE Freeman, pls refer to her note above for further detail. Pt presents after a fall, found to have left femur fx. Underwent surgery with orthopedics. Currently pt seen sitting up in bed in NAD, he is awake, alert, able to answer appropriately. Denies any significant pain at this time. Leg and scrotal edema now improved. Hgb stable, plan to start lovenox. Cont. to monitor H&H. Lungs CTAB, heart sounds regular, abdomen soft, nontender. Orthopedics following. MD Gayle Subjective Patient seen sitting on edge of bed Reports his scrotal swelling is resolved Denies pain in his left hip and knee Denies chest pain, SOB, abdominal pain, N/V Passing gas but no bowel movement yet Review of Systems Review of Systems: All systems reviewed & are unremarkable except as noted in HPI & below Physical Exam Physical Exam: General/Psych: WD/WN, sitting up in bed, NAD, conversing easily Head: normocephalic, atraumatic Eyes: normal inspection, PERRL, conjunctivae pink ENT: external ear and nose normal, oropharynx normal Neck: normal visual inspection, trachea midline Respiratory: normal respiratory effort, lungs clear to auscultation, no wheeze/rales/rhonchi, no accessory muscle use Cardiovascular: regular rate and rhythm, no murmur/rub/gallop Extremities: no cyanosis or clubbing, normal peripheral pulses, TEDs in place, left knee and thigh edematous Abdomen/GI: normal bowel sounds, soft, nontender Neurologic/MSK: A+Ox3, motor strength 5/5, moves all extremities Skin: no rashes, normal color, warm and dry, dressing x2 to left hip c/d/i Results & Data Results & Data Vital Signs (Past 12 Hours) Vital Signs Temp Pulse Pulse Resp BP Pulse Ox O2 Del Method 08/20/25 08:28 37.2 C 56 L 60 126/62 95 Room Air 08/20/25 02:25 96 Room Air 08/20/25 00:47 36.8 C 08/19/25 22:46 37.8 C H 59 L 18 122/53 L 96 Room Air Laboratory Results Short CBC 08/19/25 08/20/25 Range/Units 16:37 07:11 WBC 7.35 (4.8-10.8) K/ul Hgb 7.0 L 7.3 L (14.0-18.0) g/dL Hct 21.0 L 21.5 L (42.0-52.0) % Plt Count 158 (130-400) K/uL BMP 08/20/25 07:11 Sodium 136 Potassium 4.0 Chloride 105 Carbon Dioxide 26 BUN 21 Creatinine 1.07 Glucose 111 H Calcium 7.9 L I have independently reviewed and interpreted patient's labs including CBC and BMP. Diagnostic Findings Scrotum Ultrasound 08/19/25 11:36 Exam(s): US SCROTAL EXAM: US Scrotum CLINICAL HISTORY: Reason for exam: Scrotal swelling. TECHNIQUE: Real-time ultrasound of the scrotum with color Doppler and image documentation. COMPARISON: No relevant prior studies available. FINDINGS: Right testicle: Unremarkable. No mass. Normal arterial and venous blood flow. Left testicle: Unremarkable. No mass. Normal arterial and venous blood flow. Epididymides: 0.3 cm left epididymal head cyst. Scrotum: Extensive scrotal edema. IMPRESSION: Extensive scrotal edema No evidence of torsion Electronically signed by: Jesus Alberto Phipps MD 08/20/25 00:51 AM Medications Administered Current Inpatient Medications Acetaminophen (Acetaminophen 500 Mg Tab) 1,000 mg PO Q8H ERIC Stop: 09/14/25 21:59 Last Admin: 08/20/25 06:00 Dose: Not Given Atorvastatin Calcium (Atorvastatin 20 Mg Tab) 20 mg PO HS ERIC Stop: 09/14/25 21:57 Last Admin: 08/19/25 21:45 Dose: 20 mg Bisacodyl (Bisacodyl 10 Mg Supp) 10 mg ME DAILY PRN PRN Reason: Constipation Stop: 09/14/25 16:31 Enoxaparin Sodium (Enoxaparin Inj 40 Mg/0.4 Ml Syr) 40 mg SQ Q24H ERIC Stop: 09/19/25 08:59 Last Admin: 08/20/25 09:27 Dose: 40 mg Ceftriaxone Sodium (Rocephin) 2,000 mg in 50 mls @ 100 mls/hr IV Q24H [facility]; Protocol Stop: 08/21/25 10:59 Last Infusion: 08/20/25 12:17 Dose: Infused Lactobacillus Acidophilus (Advanced Probiotic 625 Mg Capsule) 1,250 mg PO DAILY ERIC Stop: 09/17/25 08:59 Last Admin: 08/20/25 09:27 Dose: 1,250 mg Magnesium Hydroxide (Magnesium Hydroxide Susp 30 Ml Udc) 30 ml PO DAILY PRN PRN Reason: Constipation Stop: 09/14/25 16:31 Miscellaneous (Bosutinib [Bosulif]: Order Awaiting Action) 1 each N/A QS ERIC Stop: 09/15/25 07:59 Last Admin: 08/16/25 07:48 Dose: Not Given Morphine Sulfate (Morphine Sulfate 2 Mg/Ml Carp) 2 mg IV Q3H PRN PRN Reason: Severe Pain (Scale 7, 8, 9,10) Stop: 08/29/25 16:31 Last Admin: 08/16/25 20:02 Dose: 2 mg Naloxone HCl (Naloxone Hcl 0.4 Mg/1 Ml Vial/Carp) 0.1 mg IV UD PRN PRN Reason: Opiate Overdose Stop: 09/14/25 16:31 Ondansetron HCl (Ondansetron Inj 2 Mg/Ml 2 Ml Vial) 4 mg IV Q6H PRN PRN Reason: Nausea And Vomiting Stop: 09/15/25 14:39 Oxycodone HCl (Oxycodone Hcl Ir 5 Mg Tab (Immediate Release)) 5 mg PO Q4H PRN PRN Reason: MODERATE Pain (4,5,6) & Pre PT Stop: 08/29/25 16:31 Last Admin: 08/20/25 11:46 Dose: 5 mg Polyethylene Glycol (Polyethylene (Miralax) 17 Gm Pack) 17 gm PO DAILY PRN PRN Reason: Constipation Stop: 09/14/25 21:57 Last Admin: 08/20/25 09:27 Dose: 17 gm (1) Fracture of femur, left, closed Encounter type: initial encounter Femur location: intertrochanteric Fracture alignment: displaced Qualified Code(s): S72.142A - Displaced intertrochanteric fracture of left femur, initial encounter for closed fracture (2) Fall Encounter type: initial encounter Qualified Code(s): W19.XXXA - Unspecified fall, initial encounter
[2025-08-20] MEDS: POLYETHYLENE (MIRALAX) 17 GM PACK PO PRN (09:27)
[2025-08-20] MEDS: ENOXAPARIN INJ 40 MG/0.4 ML SYR SQ SCH (09:27)
--- NOTE | 2025-08-20 11:24 | Orthopedic Progress Note ---
Date of Service August 20, 2025 Assessment & Plan (1) Status post-operative repair of closed hip fracture: Plan: 1. POD #3 status post left hip closed reduction with intramedullary nailing for IT fracture Patient is doing well from an orthopedic recovery perspective. His pain is controlled. He is tolerating getting up to bedside chair and doing weightbearing on the left lower extremity. Expect that he will have slow recovery given his age and underlying medical conditions. Continue weightbearing as tolerated left lower extremity with assistive device Continue multimodal pain control with Tylenol, oxycodone as needed for severe breakthrough pain. Recommend minimizing narcotic use is much as able, though if needed should be given. Continue DVT prophylaxis with Lovenox, BRANDON hose, SCDs. Continue with ice left hip Continue physical therapy and Occupational Therapy, they are continuing to recommend rehab placement Case management working on placement Maintain postoperative gauze with Tegaderm dressings. These may be changed if they become significantly saturated. At this time there is no saturation, dressing should be maintained until postoperative day 7 (08/23/2025) From an orthopedic perspective patient is doing well, once his anemia is stable and he continues to be asymptomatic from my perspective he is safe for discharge, however medically needs to be stable first. Follow-up with Dr. Burciaga 2 weeks postoperatively, appointment details and discharge instructions. -Discharge instructions completed. -Will continue to monitor while in house. 2. 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 Swelling is improving each day in the t high. The patient denies any bloody stools. I will defer further workup to the medicine team. No chest pain or shortness of breath, has not been hypotensive. Hemoglobin 7.3 this morning. He did receive 1 unit of PRBCs Wednesday (08/18/2025, he is now status post 5 units PRBCs (3 units on 08/16/2025, 1 unit on 08/17/2025, 1 unit on 08/18/2025) Will defer additional transfusion ordering to medicine team 3. Left knee effusion Improving Likely secondary to contusion from fall X-rays negative, CT scan was obtained yesterday, I personally reviewed CT scan images. Though this is not an isolated knee CT I do not appreciate any fracture or dislocation about the proximal tibia, patella, or distal femur. Continues to be pain-free with palpation and range of motion of the knee Patient declining aspiration at this time. Continue to monitor. Effusion is smaller today than previous days. Admission and Anticipated Discharge Date Admission Date: August 15, 2025 Lisette Macias is sitting up in a chair. Seen at bedside. Doing well. Getting ready to participate in physical therapy. Denies any pain in his left hip today. Denies any swelling, numbness or tingling in the left lower extremity. The left knee is also improving and he denies any pain in that today. He tells me that he is going [facility] most likely this afternoon. Denies any headedness or dizziness. Tolerating regular diet. Physical Exam Musculoskeletal: Exam of his left lower extremity: Postoperative dressings are clean, dry and intact. They were left in place today. Mild edema throughout the thigh and small effusion to the left knee. Nontender with palpation. The thigh compartments are soft. No distal edema. Calf is supple and nontender. Tolerates full knee extension and flexion, ankle range of motion with normal strength. Distal pulses are 2+. BRANDON stockings are in place. Results & Data Vital Signs (Past 12 Hours) Vital Signs Temp Pulse Pulse BP Pulse Ox O2 Del Method 08/20/25 08:30 Room Air 08/20/25 08:28 37.2 C 56 L 60 126/62 95 Room Air 08/20/25 02:25 96 Room Air 08/20/25 00:47 36.8 C Laboratory Results 08/20/25 08/19/25 Range/Units 07:11 16:37 WBC 7.35 (4.8-10.8) K/ul RBC 2.43 L (4.70-6.10) M/uL Hgb 7.3 L 7.0 L (14.0-18.0) g/dL Hct 21.5 L 21.0 L (42.0-52.0) % MCV 88.5 (80.0-100.0) fL MCH 30.0 (25.0-34.0) pg MCHC 34.0 (32.0-36.0) g/dL RDW Std Deviation 50.2 H (36.4-46.3) fL RDW Coeff of Ebony 15.7 H (11.5-14.5) % Plt Count 158 (130-400) K/uL MPV 10.2 (9.4-12.4) fL Absolute Nucleated RBC 0.02 (0.00-0.12) K/uL Nucleated RBC % (auto) 0.3 % Sodium 136 (136-145) mmol/L Potassium 4.0 (3.5-5.1) mmol/L Chloride 105 (98-107) mmol/L Carbon Dioxide 26 (21-32) mmol/L Anion Gap 5 (3-11) BUN 21 (6-23) mg/dl Creatinine 1.07 (0.6-1.4) mg/dl Est Cr Clr Drug Dosing 58.4 ml/min eGFR 69.28 BUN/Creatinine Ratio 19.6 (10-20) Glucose 111 H (70-99(Fasting)) mg/dl Calcium 7.9 L (8.6-10.3) mg/dl Phosphorus 2.1 L (2.5-4.9) mg/dl Magnesium 2.1 (1.7-2.4) mg/dl 25-OH Vitamin D Total 13.3 L (30-100) ng/ml
[2025-08-20] MEDS: ERGOCALCIFEROL 1250 MCG (50,000 UNITS) CAP PO SCH (14:16)
[2025-08-20 17:02] LABS: Hematocrit (blood only) 22.6 % (42.0-52.0); Hemoglobin 7.5 g/dL (14.0-18.0)
[2025-08-20] MEDS: POT PHOSPHATE MONOBASIC W/ SOD TAB PO SCH (17:44)
[2025-08-20 22:51] VITALS: RESP 18
[2025-08-21 06:21] LABS: Hematocrit (blood only) 23.2 % (42.0-52.0); Hemoglobin 7.9 g/dL (14.0-18.0); Mean Corpuscular Hemoglobin 30.3 pg (25.0-34.0); Mean Corpuscular Volume 88.9 fL (80.0-100.0); Platelet Count 186 K/uL (130-400); RDW Standard Deviation 49.8 fL (36.4-46.3); Red Blood Count 2.61 M/uL (4.70-6.10); White Blood Count 6.72 K/ul (4.8-10.8)
[2025-08-21 06:56] LABS: Anion Gap 5.0 (3-11); Blood Urea Nitrogen 19.0 mg/dl (6-23); Calcium 8.1 mg/dl (8.6-10.3); Carbon Dioxide 27.0 mmol/L (21-32); Chloride 104.0 mmol/L (98-107); Creatinine Clr Calc Pharmacy 71.0 ml/min; Glucose 107.0 mg/dl (70-99(Fasting)); Magnesium 2.0 mg/dl (1.7-2.4); Potassium 4.0 mmol/L (3.5-5.1); Sodium 136.0 mmol/L (136-145)
[2025-08-21 07:45] VITALS: BP 135/89; PULSE 55; TEMP 98.6; O2SAT 94
[2025-08-21] MEDS: MAGNESIUM HYDROXIDE SUSP 30 ML UDC PO PRN (08:29)
--- NOTE | 2025-08-21 09:10 | Orthopedic Progress Note ---
Date of Service August 21, 2025 Assessment & Plan (1) Status post-operative repair of closed hip fracture: Plan: 1. POD #5 status post left hip closed reduction with intramedullary nailing for IT fracture Patient remains stable from an orthopedic standpoint. His pain is well controlled. The posterior aspects of his dressings were beginning to roll up, so I elected to change them with anticipation that he will be discharged either today or tomorrow. Incisions appear to be well-approximated with no evidence of dehiscence, drainage, or infection. New Xeroform, 4 x 4, Tegaderm dressings were applied. These should be be left in place for another 3 days at least. Continue weightbearing as tolerated left lower extremity with assistive device Continue multimodal pain control with Tylenol, oxycodone as needed for severe breakthrough pain. Recommend minimizing narcotic use is much as able, though if needed should be given. Continue DVT prophylaxis with Lovenox, BRANDON hose, SCDs. Continue with ice left hip Continue physical therapy and Occupational Therapy, they are continuing to recommend rehab placement Per case management patient has [facility] medically stable. From an orthopedic perspective patient is doing well, once his anemia is stable and he continues to be asymptomatic from my perspective he is safe for discharge, however medically needs to be stable first. Follow-up with Dr. Burciaga 2 weeks postoperatively, appointment details and discharge instructions. -Discharge instructions completed. -Will continue to monitor while in house. 2. Anemia Hemoglobin improved today 7.9 from 7.5 yesterday. 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 Swelling of the thigh is stable. The patient denies any bloody stools. Defer to medicine team on further management. Patient has received a total of 5 units PRBCs (3 units on 08/16/2025, 1 unit on 08/17/2025, 1 unit on 08/18/2025) 3. Left knee effusion Improving Likely secondary to contusion from fall X-rays negative, CT scan was obtained yesterday, Dr. Burciaga personally reviewed CT scan images. Though this is not an isolated knee CT he did not appreciate any fracture or dislocation about the proximal tibia, patella, or distal femur. Continues to be pain-free with palpation and range of motion of the knee Patient continuing to decline aspiration at this time. Continue to monitor. Effusion is smaller today than previous days. Admission and Anticipated Discharge Date Admission Date: August 15, 2025 Subjective Patient seen in bed this morning. He states that he is doing well overall. Denies any concerns today. States that the left hip is sore when he is up moving around but better than it was yesterday. His knee is not bothering him. He denies any fevers, chills, chest pain, shortness of breath, nausea, vomiting, numbness or tingling in his leg or into the feet. Physical Exam Constitutional: Resting comfortably in bed. In no distress. Pleasant. Cardiovascular: Left DP and PT pulses 2+ Musculoskeletal: Left lower extremity: Bottom portion of Tegaderm dressings were rolling up so were removed. Incisions are well-approximated with echo. No evidence of dehiscence or surrounding erythema. No active drainage. There is some swelling in the buttock and thigh, unchanged from prior. Knee effusion is slowly improving. There is no tenderness to palpation about the hip or knee. Patient able to initiate a straight leg raise however is unable to fully raise the leg off the bed. There is no pain with logroll of the hip or passive knee flexion. Strength 5/5 with ankle plantarflexion dorsiflexion eversion. Skin: Small amount of old ecchymotic changes in the left buttock posterior to the incision. Neurologic: No sensory deficits in the left toes to light touch L3-S1 distribution. Results & Data Vital Signs (Past 12 Hours) Vital Signs Temp Pulse Resp BP Pulse Ox O2 Del Method 08/21/25 07:43 98.6 F 55 L 18 135/89 94 Room Air 08/21/25 07:40 Room Air 08/20/25 22:50 98.2 F 59 L 18 125/60 95 Room Air Laboratory Results 08/21/25 08/20/25 05:43 16:46 WBC 6.72 RBC 2.61 L Hgb 7.9 L 7.5 L Hct 23.2 L 22.6 L MCV 88.9 MCH 30.3 MCHC 34.1 RDW Std Deviation 49.8 H RDW Coeff of Ebony 15.4 H Plt Count 186 MPV 9.7 Sodium 136 Potassium 4.0 Chloride 104 Carbon Dioxide 27 Anion Gap 5 BUN 19 Creatinine 0.88 Est Cr Clr Drug Dosing 71.0 eGFR 85.85 BUN/Creatinine Ratio 21.6 H Glucose 107 H Calcium 8.1 L Phosphorus 2.2 L Magnesium 2.0
[2025-08-21] MEDS: INFLUENZA VACC TS2025-26(65y+)/PF (IIV3) 0.5mL Syr IM ONE (10:39)
--- NOTE | 2025-08-21 12:03 | Discharge Summary ---
Discharge Summary Date of Service August 21, 2025 Principal Dx & Hospital Course #1 = Principal Diagnosis (1) Fracture of femur, left, closed: (2) Fall: (3) Acute on chronic anemia: (4) Swelling of joint, knee, left: (5) CKD (chronic kidney disease), stage III: (6) CML (chronic myelocytic leukemia): (7) HLD (hyperlipidemia): (8) Chronic heart failure with preserved ejection fraction (HFpEF): (9) UTI (urinary tract infection): (10) Vitamin D deficiency: Plan Patient is an 84y/o M with PMHx significant for CML, HTN, HLD, HFpEF, CKD stage III and BPH who presented to the ED on 08/15/25 with c/o L hip pain s/p mechan ical fall and was found to have an acute intertrochanteric left femur fracture. Left intertrochanteric femur fracture s/p repair Mechanical fall Patient presenting with left hip pain after ground level fall at home Admitting left femur x-ray and pelvis CT revealed acute comminuted intertrochanteric fracture of left proximal femur POD#5 left hip closed reduction with internal fixation by Dr. Willie Burciaga on 08/16/2025 Pain is controlled with current regimen of scheduled tylenol and PRN oxycodone-> last dose at 0748 08/21 Orthopedics recommending: -Continue WBAT LLE -Continue ice -Continue Xeroform and Tegaderm dressing until POD#7 (08/23/2025), change if significant saturated -> last changed this morning 08/21 -SQ Lovenox daily for 6 weeks -Follow up with Dr. Burciaga 2 weeks postoperatively-> appt on 08/31/2025 at 0930 PT/OT recommending rehab DC to [facility] on 08/21 Acute blood loss anemia Chronic anemia Baseline Hgb 11-12 per chart review Preop Hgb 9.2, EBL 200cc Hgb dropped as low as 7.0 post operatively s/p 5U PRBCs during hospitalization (3U on 08/16, 1U on 08/17, 1U on 08/18) Repeat CT LLE without evidence of bleeding Hgb stable at 7.9 on day of discharge Recommend repeating labs in 1-2 days to ensure stable blood counts L knee joint effusion Admitting x-ray revealed no fracture Likely secondary to contusion from fall Declined aspiration by Ortho Improved over course of hospitalization Constipation First BM today 08/21 after suppository Recommend continued bowel regimen Hypocalcemia Vitamin D deficiency Calcium as low as 7.7 with ionized Ca 1.10 Vitamin D level 13 Start ergocalciferol 1,250mcg once weekly x6 weeks Recommend PCP follow up for further levels and supplement dosing Hypophosphatemia Phos 2.1-2.2 Started on phos supplementation Recommend repeating labs in 1-2 days to ensure stable level CML Follows with [facility]c, on Bosulif daily D/w Dr. Navarrete who recommends resuming the medication 1 week after his surgical wound has healed Chronic HFpEF TTE, 04/2023: EF 55-60%, mild concentric LVH, mild aortic valve sclerosis w/o significant stenosis, mild TR, large left pleural effusion, no pericardial effusion. Received IV lasix 08/19 for scrotal swelling otherwise euvolemic Recommend follow up with Cardiology outpatient HLD Continue statin Scrotal swelling-> resolved Scrotal ultrasound revealed extensive edema s/p IV lasix 20mg yesterday 08/19 Resolved per patient Continue scrotal elevation/support LADONNA-> resolved CKD stage III Baseline creat 1.1-1.3, peaked at 2.0 Resolved s/p IVF and transfusions UTI-> resolved UA on 08/16 with 2+ LE, >50 WBC, 1+ bacteria Final urine culture grew Gram negative bacilli, no sensitivities to follow Completed five day course of Rocephin in hospital Patient seen in collaboration with Dr. Araujo. Please see addendum. Notes For Next Care Provider 84 year old male with significant PMH who was admitted at [facility] from 08/15- 08/21/2025 after having a fall at home where he sustained a left hip fracture. S/p closed fixation with Orthopedic Surgery. Post op course complicated by acute blood loss anemia where he required 5 units of blood over the course of a few days. Hemoglobin now stable at 7.9. Started on lovenox for blood clot prevention. DC to [facility] for rehab stay. Medication Changes From Visit Lovenox daily for 6 weeks Ergocalciferol 1,250mcg once weekly for 6-12 weeks Phospha supplementation QID Hold Bosulif until 1 week after incision is healed Admission HPI Per Admitting Provider Patient is 84 year old male with PMH CML, HTN, dyslipidemia, HFpEF, CKD III, BPH presented to ER with c/o fall and left hip pain today. Patient states he was gathering his garbage when he slipped on floor falling onto left side. Reports instant pain to left hip. He was able to sit up however unable to get himself up off the floor. He reports his son-in-law came approximately 30 minutes later and with the assistance of his daughter they were able to get him up however he was unable to bear weight. Denies any dizziness, SOB or chest pain prior to fall. Denies hitting head, LOC. Patient reports prior history of right knee pain requiring injections in past however denies any right hip pain. Reports chronic loose stools from his Bosulif and he takes Imodium approximately once a week. States takes Lasix very rarely for BLE edema. Denies fever/chills, diaphoresis, N/V/C, VALDIVIA, dizziness, syncope, vision changes, neck pain, CP, SOB, palpitations, cough, sore throat, otalgia, rhinorrhea, abdominal pain, paresthesias, weakness, rashes, urinary symptoms. Discussed with ER physician, patient with mechanical fall and left femur fracture and ortho has been notified. Admission Exam Per Admitting Provider General: no acute distress sitting up in bed, WDWN Head: normocephalic, atraumatic Eyes: conjunctiva non-injected, anicteric ENT: normal inspection external ears, nose, mucous membranes mildly dry Neck: supple, trachea midline Lungs: clear, no respiratory distress, no wheezing/rhonchi/rales CV: RRR, no murmur, no pretibial edema Abd: normal BS, soft, non-tender Ext: no cyanosis, no calf tenderness; LLE: +shortened and externally rotated foot. +edema to left hip and thigh, +tenderness to palpation left anterior and lateral hip. No ROM attempted. +tenderness palpation left knee. Distal pulses palpable. RLE: normal appearance, non-tender to palpation, Full active ROM hip and knee without tenderness, distal pulses palpable. Neuro: A&O x 3, no focal deficits noted, normal affect Skin: pale, warm, dry Discharge Exam General/Psych: WD/WN, sitting up in chair, NAD, conversing easily Head: normocephalic, atraumatic Eyes: normal inspection, PERRL, conjunctivae pink ENT: external ear and nose normal, oropharynx normal Neck: normal visual inspection, trachea midline Respiratory: normal respiratory effort, lungs clear to auscultation, no wheeze/rales/rhonchi, no accessory muscle use Cardiovascular: regular rate and rhythm, no murmur/rub/gallop Extremities: no cyanosis or clubbing, normal peripheral pulses, TEDs in place, left knee and thigh edematous Abdomen/GI: normal bowel sounds, soft, nontender Neurologic/MSK: A+Ox3, motor strength 5/5, moves all extremities Skin: no rashes, normal color, warm and dry, dressing x2 to left hip c/d/i Updated Medication List Medication Instructions Recorded Confirmed Type coenzyme Q10 75 mg capsule 75 mg PO QAM #0 caps 11/22/14 08/15/25 History bosutinib 400 mg tablet (Bosulif) 400 mg PO DAILY 05/20/23 08/15/25 History atorvastatin 20 mg tablet (Lipitor) 20 mg PO HS #30 tabs 05/26/23 08/15/25 Rx furosemide 40 mg tablet 20 mg PO QAM PRN Fluid Retention 08/15/25 08/15/25 History loperamide 2 mg tablet (Imodium 2 mg PO DAILY PRN Diarrhea 08/15/25 08/15/25 History A-D) vitamins A,C,G-kkem-dfuqwy 2,148 1 tab PO DAILY 08/15/25 08/15/25 History mcg-113 mg-45 mg-17.4 mg tablet (PreserVision AREDS) enoxaparin 40 mg/0.4 mL 40 mg (0.4 mL) subcut Q24H #4 mL 08/21/25 Rx subcutaneous syringe (Lovenox) ergocalciferol (vitamin D2) 1,250 1,250 mcg PO Q7D #1 cap 08/21/25 Rx mcg (50,000 unit) capsule sodium di- and 1 tab PO QID #1 tab 08/21/25 Rx monophosphate-potassium phos monobasic 250 mg tablet (Phospha Neutral) Hospital Stay Data Consultations 08/15/25 14:53 Consult Orthopedic Surgery Routine ED Decision to Admit Stat 08/15/25 16:32 Consult Anesthesiology Routine Consult Orthopedic Surgery Routine Procedures Performed Operation Date: 08/16/25 14:00 Actual Procedures p Left Troch Nail(Left) - Willie Burciaga DO Diagnostic Imagining Performed Femur X-Ray 08/15/25 13:19 XR femur LT 2V routine CLINICAL HISTORY: pain post fall COMPARISON: None FINDINGS: There is an acute mildly displaced mildly comminuted intertrochanteric fracture proximal left femur. There is blanket artifact at the distal femur. No other fracture or dislocation seen of the left femur. 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 IMPRESSION: Acute fracture proximal left femur. ACT 112: Negative or not required by law. Electronically signed by: Liang Beverly M.D. 08/15/2025 3:03 PM Hip/Pelvis X-Ray 08/15/25 13:19 XR hip LT 2V w pelvis CLINICAL HISTORY: pain post fall COMPARISON: None FINDINGS: There is an acute mildly comminuted mildly displaced intertrochanteric fracture proximal left femur. There is a fracture at the proximal right femur/right greater trochanter of uncertain chronicity. No dislocation seen at the hips. No pelvic fracture seen. There are severe degenerative changes at the left hip. IMPRESSION: 1. Acute fracture proximal left femur. 2. Fracture of uncertain chronicity proximal right femur/right greater trochanter. ACT 112: Negative or not required by law. Electronically signed by: Liang Beverly M.D. 08/15/2025 3:02 PM Knee X-Ray 08/15/25 13:19 XR knee LT 1 or 2V routine CLINICAL HISTORY: pain post fall COMPARISON: None FINDINGS: There is overlying skin fold and blanket artifact. There is severe osteoarthritis. No acute fracture or dislocation seen at the left knee. IMPRESSION: No fracture seen at the left knee. ACT 112: Negative or not required by law. Electronically signed by: Liang Beverly M.D. 08/15/2025 3:04 PM Chest X-Ray 08/15/25 15:26 EXAM: Portable AP chest radiograph TECHNIQUE: AP portable radiograph of the chest was obtained. INDICATION: Shortness of breath Comparison: Chest radiograph May 24, 2023 FINDINGS: LINES and TUBES: None CARDIOVASCULAR: Cardiac silhouette is stably mildly enlarged in size. LUNGS/PLEURA: No focal consolidation identified. Chronic interstitial lung changes. No significant pleural fluid. No discernible pneumothorax. OSSEOUS/OTHER: No displaced acute osseous process identified. Unchanged elevation of the left hemidiaphragm. IMPRESSION: No radiographic evidence of acute cardiopulmonary or osseous Electronically signed by Byron Juan 08-15-2025 4:[address] 08/15/25 15:45 CT PELVIS WITHOUT CONTRAST: TECHNIQUE: Un-enhanced CT examination of the pelvis was performed. IV CONTRAST: None HISTORY: Trauma COMPARISON: Pertinent radiographs from earlier in the same day are not viewable in our system. FINDINGS: OSSEOUS STRUCTURES: Acute traumatic and comminuted intertrochanteric fractures of the left femur with impaction and varus angulation. Surrounding intramuscular hematomas. Multiple corticated osseous bodies are noted by the right femoral trochanters likely representing sequela of chronic injuries and dystrophic/heterotopic ossifications Grade 1 anterolisthesis of L5 on S1 with associated chronic pars defects URINARY BLADDER: Unremarkable REPRODUCTIVE ORGANS: Unremarkable AORTA and ILIAC ARTERIES: No aneurysmal dilatation of the visualized portion of the aorta or iliac arteries seen. LYMPH NODES: No pelvic lymph adenopathy identified. GASTROINTESTINAL: The visualized bowel is normal in caliber. PERITONEUM: No ascites is seen. No peritoneal masses seen. PELVIC WALL: No hernia is identified IMPRESSION: Acute traumatic and comminuted intertrochanteric fractures of the LEFT femur with impaction and varus angulation. Surrounding intramuscular hematomas. Multiple corticated osseous bodies are noted by the RIGHT femoral trochanters likely representing sequela of chronic injuries and dystrophic/heterotopic ossificationsThis is Electronically signed by Byron Juan 08-15-2025 5:37 PM Hip X-Ray 08/16/25 00:00 FL hip LT 2-3V CLINICAL HISTORY: LT TROCH NAIL COMPARISON STUDY: 08/15/2025 FLUOROSCOPY TIME: 188 seconds FLUOROSCOPY IMAGES: 9 EXPOSURE DOSE: 89 mGy FINDINGS: Fluoroscopy was provided for left femoral gamma nail. IMPRESSION: Intraoperative fluoroscopy. ACT 112: Negative or not required by law. Electronically signed by: Liang Beverly M.D. 08/17/2025 8:18 AM Femur X-Ray 08/16/25 18:11 INDICATION: Postoperative evaluation TECHNIQUE: 2 views of the left femur were obtained. COMPARISON: CT of the pelvis 1 day previous. FINDINGS: Interval ORIF of the left femur with intramedullary anni and screws stabilizing the traumatic intertrochanteric fracture. There is a displaced osseous fragment of the lesser trochanter again seen. Expected postsurgical changes of the soft tissues with soft tissue air and swelling. Overlying skin echo. 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 IMPRESSION: Expected findings following interval ORIF of the left femur. Electronically signed by Byron Juan 08-16-2025 6:41 PM Chest X-Ray 08/18/25 13:06 Frontal images of the chest Comparison made to prior exam dated 08/15/2025 Impression No acute pulmonary pathology. Degenerativechanges left shoulder. Electronically signed by Jesus Alberto Phipps 08-18-2025 2:30 PM Venous Doppler Study 08/18/25 13:06 DVT ULTRASOUND BILATERAL LOWER EXTREMITY INDICATION: Pain TECHNIQUE: Grayscale and color Doppler evaluation of the BILATERAL femoral-popliteal venous system was performed. A duplex Doppler study was performed, consisting of integrated two-dimensional (2D) real-time imaging: Color flow Doppler and Doppler spectral analysis. COMPARISON: FINDINGS: RIGHT common femoral, femoral and popliteal veins: Normal compressibility, color flow, respiratory variation. No intraluminal echogenic material. There is a popliteal fossa Romano's cyst measuring 6.7 x 2.6 x 2.5 cm. LEFT common femoral, femoral and popliteal veins: Normal compressibility, color flow, respiratory variation. No intraluminal echogenic material. There is a popliteal fossa Romano's cyst measuring 6.9 x 2.0 x 1.8 cm. IMPRESSION: No evidence of deep venous thrombus in bilateral femoral-popliteal venous systems. Bilateral popliteal fossa Romano's cysts. Electronically signed by Byron Juan 08-18-2025 9:[address] 08/18/25 17:02 Exam(s): CT EXTREMITY LEFT LOWER With Contrast IV Amt: 93cc opti 320 EXAM: CT Left Lower Extremity With Intravenous Contrast CLINICAL HISTORY: Reason for exam: Persistent anemia, r/o bleed. TECHNIQUE: Axial computed tomography images of the left lower extremity with intravenous contrast. CTDI is 10.94 mGy and DLP is 1121.67 mGy-cm. Automated exposure control was utilized for the study. A dose lowering technique was utilized adhering to the principles of ALARA. CONTRAST: Patient received 93cc opti 320 of IV contrast COMPARISON: No relevant prior studies available. FINDINGS: Bones/joints: postoperative changes ORIF left intertrochanteric hip fracture. Soft tissue swelling and inflammatory changes about the left hip neither expected given patient's recent operative state. No dislocation. Soft tissues: See above. Other findings: No evidence of contrast extravasation identified on this exam. IMPRESSION: No acute findings in the left lower extremity. Electronically signed by: Jesus Alberto Phipps MD 08/19/25 00:[address] 08/18/25 17:02 Exam(s): CT EXTREMITY LEFT LOWER With Contrast IV Amt: 93cc opti 320 EXAM: CT Left Lower Extremity With Intravenous Contrast CLINICAL HISTORY: Reason for exam: Persistent anemia, r/o bleed. TECHNIQUE: Axial computed tomography images of the left lower extremity with intravenous contrast. Automated exposure control was utilized for the study. A dose lowering technique was utilized adhering to the principles of ALARA. CONTRAST: Patient received 93cc opti 320 of IV contrast COMPARISON: No relevant prior studies available. FINDINGS: Bones/joints: Unremarkable. No acute fracture. No dislocation. Soft tissues: Unremarkable. No abnormal contrast enhancement. IMPRESSION: Normal left lower extremity CT. Electronically signed by: Jesus Alberto Phipps MD 08/19/25 00:05 AM Scrotum Ultrasound 08/19/25 11:36 Exam(s): US SCROTAL EXAM: US Scrotum CLINICAL HISTORY: Reason for exam: Scrotal swelling. TECHNIQUE: Real-time ultrasound of the scrotum with color Doppler and image documentation. COMPARISON: No relevant prior studies available. FINDINGS: Right testicle: Unremarkable. No mass. Normal arterial and venous blood flow. Left testicle: Unremarkable. No mass. Normal arterial and venous blood flow. Epididymides: 0.3 cm left epididymal head cyst. Scrotum: Extensive scrotal edema. IMPRESSION: Extensive scrotal edema No evidence of torsion Electronically signed by: Jesus Alberto Phipps MD 08/20/25 00:51 AM Pending Results Patient Have Any Pending Studies at Discharge: No Discharge Instructions Given to Patient (Per Discharging Provider) You presented to the hospital after falling at home and were found to have a left hip fracture. You underwent surgery with Dr. Burciaga on 08/16/2025. You are recovering well from surgery. You worked with physical therapy and occupational therapy who recommended a short term rehab stay to help build your strength back up before you can return home. You will be discharged to [facility]. You should continue weight bearing as tolerated in your left leg, ice, and keep your dressing on for another three days at least. You will need to be on lovenox injections once daily for the next 6 weeks to prevent blood clots after surgery. You will follow up with Dr. Burciaga on 08/31/2025. Your blood counts dropped after surgery, which is a common complication with the type of surgery you had. You required 5 units of blood while in the hospital. Your hemoglobin has been stable over the last few days. You will need to have your labs checked at [facility] to make sure your hemoglobin number is staying stable. Your calcium levels were low in the hospital, and we found your vitamin D level to be low. You were started on vitamin D in the hospital and will need to continue taking this once a week for the next 6-12 weeks. Your PCP will need to recheck your level at that time and will likely prescribe daily supplementation. Your phosphorus levels were also low in the hospital, and we started you on phosphorus supplementation. Dr. Navarrete recommends that you resume your Bosulif one week after your surgical wound has healed. We recommend follow up with Dr. Burciaga, your PCP, your Steam Drier Tender, and Dr. Navarrete. Total Time Total Time Spent Total Time Spent (In Minutes): I spent a total of 35 minutes coordinating, documenting and providing care for this patient excluding time spent in the performance of separately billed services or time spent by another provider/QHP. Supervising Physician Co-Signing Physician Notes Pt discussed and care coordinated w/ Ross Freeman PA-C, pls refer to her note above for further detail. Pt presents after a fall, found to have left femur fx. Underwent surgery with orthopedics. Pt required blood transfusion during this hospital stay, overall pt has been doing well though, pain well controlled. Current Hgb 7.9 and pt was started on lovenox for DVT ppx. Plan to DC pt to rehab today. pt will need to follow up w/ orthopedics. MD Gayle
== END 2025-08-21 11:35 | DRG 480 ==
LOC: ED 12:59 → SUATTDRO 17:09 → 3W 17:09
DX: E83.39 Other disorders of phosphorus metabolism; Z87.891 Personal history of nicotine dependence; N39.0 Urinary tract infection, site not specified; I13.0 Hypertensive heart and chronic kidney disease with heart failure and stage 1 through stage 4 chronic kidney disease, or unspecified chronic kidney disease; N18.30 Chronic kidney disease, stage 3 unspecified; Y92.89 Other specified places as the place of occurrence of the external cause; E78.5 Hyperlipidemia, unspecified; E83.51 Hypocalcemia; I50.32 Chronic diastolic (congestive) heart failure; N40.0 Benign prostatic hyperplasia without lower urinary tract symptoms; M25.462 Effusion, left knee; W01.198A Fall on same level from slipping, tripping and stumbling with subsequent striking against other object, initial encounter; D62 Acute posthemorrhagic anemia; M80.052A Age-related osteoporosis with current pathological fracture, left femur, initial encounter for fracture; N17.0 Acute kidney failure with tubular necrosis; N50.89 Other specified disorders of the male genital organs; S80.02XA Contusion of left knee, initial encounter; C92.10 Chronic myeloid leukemia, BCR/ABL-positive, not having achieved remission